=== PATIENT | male | born 1950 | race Caucasian/White ===

== ENCOUNTER → 2017-03-17 09:28 | Outpatient (CLI) | payer BC ==
[2015-08-25 09:21] VITALS: BMI 32.5
--- NOTE | ~2017-03-17 | EC ---
PATIENT:EYAL LOGAN DATE OF SERVICE: 03/17/17 SEX: M MEDICAL RECORD: [id number] DATE OF : 54 LOCATION[facility] AGE OF PATIENT: 66 ADMISSION DATE: 03/17/17 REFERRING PHYSICIAN: INTERPRETING PHYSICIAN: ARTIS ROMEO MD ECHOCARDIOGRAM REPORT ECHO CHARGES 4 ECHO COMPLETE CLINICAL DIAGNOSIS: EDEMA ECHOCARDIOGRAPHIC MEASUREMENTS (adult normal given) AC root (d.<3.7cm) 3.6 cm LV Septum d (<1.2 cm> 1.2 cm Valve Excursion 2.3 cm LV Septum (systole) 2.1 cm Left Atria (s.<4.0cm> 3.3 cm LVPW d(<1.2cm) 1.4 cm RV (d.<2.3cm) 3.6 cm LVPW (sytole) 2.2 cm LV diastole(<5.6CM) 5.5 cm MV E-F(>70mm/sec) cm LV systole 2.4 cm LVOT Diameter 1.9 cm MV exc.(>10mm) cm Est.ejection fraction (50-75%) % Pericardial Effusion N DOPPLER: LVIT cm/sec A 90.0 cm/sec E 71.0 cm/sec LA cm/sec RVSP 33.0 mmHg LVOT 119 cm/sec AOP1/2T m/s Asc. Ao 141 cm/sec RVOT 90.0 cm/sec RA cm/sec PA 107 cm/sec AV Gradient Peak 8.0 mmHg AV Mean 5.2 mmHg AV Area 2.1 cm MV Gradient Peak 2.8 mmHg MV Mean 1.2 mmHg MV Area cm COMMENTS: Electrical Systems Engineer: 1 NIDA BESSOE Slip Dumper: 1 Dr. Romeo TAPE# PACS DATE OF SERVICE: 03/17/2017 Echocardiogram FINDINGS: 1. Left ventricular chamber size is within normal limits. Left ventricular systolic function is mildly depressed. Overall ejection fraction 40%. 2. Left atrium, right atrium, and right ventricular chamber sizes are within normal limits. 3. Valvular structures have normal structure and motion. ECHOCARDIOGRAM REPORT [id number] EYAL LOGAN 4. Doppler interrogation reveals no significant valvular insufficiency or stenosis. Pulmonary systolic pressure is normal estimated at 33 mmHg. 5. No evidence of pericardial effusion or left ventricular thrombus. TRANSINT:[id number] Voice Confirmation ID: [id number] DOCUMENT ID: [id number] ARTIS ROMEO MD at 1800 CC: [id number] DICTATION DATE: 03/17/17 1446 STONEMASON HELPER: 03/17/17 1508 REG [facility] [address] [id number]
--- NOTE | ~2017-03-17 | HP ---
PATIENT: EYAL JOHNS MEDICAL RECORD: [id number] ACCOUNT: [id number] LOCATION:[facility] : 54 ADMISSION DATE: 03/17/17 HISTORY AND PHYSICAL EXAMINATION HISTORY OF PRESENT ILLNESS: Mr. Johns is a 66-year-old white male that was actually seen in the office yesterday for sudden hearing loss. He has also had some recent falls and increased swelling. He has a history of excessive alcohol use, chronic pancreatitis, and cirrhosis. An MRI was ordered and done today, results are still pending. Upon reviewing this evening, his sodium is found to be 125. He reports still feeling about the same, not feeling well. His hearing has not changed. He is going to be admitted for severe hyponatremia. PAST MEDICAL HISTORY: Significant for obesity, hypertension, intermittent atrial fibrillation, chronic pancreatitis, alcohol dependence with probable cirrhosis, gout, and hypertension. PAST SURGICAL HISTORY: Previous surgeries include a fracture of the left wrist. ALLERGIES OR INTOLERANCES: None. HOME MEDICATIONS: Include lisinopril 40 mg a day, potassium 20 mEq b.i.d., metoprolol 100 mg daily, allopurinol 300 mg a day, and Lasix 20 mg a day. FAMILY HISTORY: Significant for hypertension and type 2 diabetes. SOCIAL HISTORY: The patient has never been a smoker. He has been a drinker and been pretty heavy. REVIEW OF SYSTEMS: Significant for bilateral hearing loss, which started earlier in the week. He denies any headache. He denies any visual changes. He denies any chest pain, shortness of breath, palpitations. He has had some chronic swelling in his abdomen and lower extremities, which is now worse. He has had multiple falls in the last week. PHYSICAL EXAMINATION: GENERAL: He is in no distress at this time, but does appear mildly ill. HEENT: Sclerae nonicteric. Mucous membranes are moist. NECK: Soft and supple. HEART: Regular at this time. LUNGS: Clear. ABDOMEN: Slightly distended. EXTREMITIES: Lower extremities reveal edema. IMPRESSION: 1. Severe hyponatremia. 2. Sudden bilateral hearing loss. 3. Recent falls. 4. History of alcohol abuse with probable chronic cirrhosis and pancreatitis. PLAN: Admit. Fluid restriction. IV Lasix. Check labs. IV diuretics. Check echo. Follow up on MRI report that was done as an outpatient earlier today. Check ammonia level. See orders for rest of plan. TRANSINT:[id number] Voice Confirmation ID: [id number] DOCUMENT ID: [id number] HISTORY AND PHYSICAL [id number] EYAL JOHNS MATTHEW DO CC: [id number] DICTATION DATE: 03/17/171953 PROJECT BUILDER: 03/17/172045 REG [facility] [address] [id number]
[~2017-03-17 09:28] MED LIST: CARDIZEM CD240 MG PO; FUROSEMIDE20 MG PO; K-DUR20 MEQ PO; NAPROSYN500 MG PO; TOPROL XL100 MG PO; TOPROL XL50 MG PO; XARELTO20 MG PO; ZESTRIL40 MG PO; ZYLOPRIM300 MG PO
== END | disposition home or self-care (01) ==
LOC: D.ECHO 09:28
DX: H91.23 Sudden idiopathic hearing loss, bilateral (principal)

== ENCOUNTER 2017-03-17 21:10 | Inpatient (IN) | payer BC ==
[~2017-03-17] VITALS: Ht 175.3 cm; Wt 113.4 kg
--- NOTE | ~2017-03-17 | EC ---
PATIENT:EYAL LOGAN DATE OF SERVICE: 03/17/17 SEX: M MEDICAL RECORD: [id number] DATE OF : [birth year] LOCATION:D.MS Shanks[facility] AGE OF PATIENT: 66 ADMISSION DATE: 03/17/17 REFERRING PHYSICIAN: INTERPRETING PHYSICIAN: ARTIS ROMEO MD ECHOCARDIOGRAM REPORT ECHO CHARGES 4 ECHO COMPLETE CLINICAL DIAGNOSIS: EDEMA ECHOCARDIOGRAPHIC MEASUREMENTS (adult normal given) AC root (d.<3.7cm) 3.6 cm LV Septum d (<1.2 cm> 1.2 cm Valve Excursion 2.3 cm LV Septum (systole) 2.1 cm Left Atria (s.<4.0cm> 3.3 cm LVPW d(<1.2cm) 1.4 cm RV (d.<2.3cm) 3.6 cm LVPW (sytole) 2.2 cm LV diastole(<5.6CM) 5.5 cm MV E-F(>70mm/sec) cm LV systole 2.4 cm LVOT Diameter 1.9 cm MV exc.(>10mm) cm Est.ejection fraction (50-75%) % Pericardial Effusion N DOPPLER: LVIT cm/sec A 90.0 cm/sec E 71.0 cm/sec LA cm/sec RVSP 33.0 mmHg LVOT 119 cm/sec AOP1/2T m/s Asc. Ao 141 cm/sec RVOT 90.0 cm/sec RA cm/sec PA 107 cm/sec AV Gradient Peak 8.0 mmHg AV Mean 5.2 mmHg AV Area 2.1 cm MV Gradient Peak 2.8 mmHg MV Mean 1.2 mmHg MV Area cm COMMENTS: Lay Out Former: 1 NIDA BESSOE Drill Runner Helper: 1 Dr. Romeo TAPE# PACS DATE OF SERVICE: 03/17/2017 Echocardiogram FINDINGS: 1. Left ventricular chamber size is within normal limits. Left ventricular systolic function is mildly depressed. Overall ejection fraction 40%. 2. Left atrium, right atrium, and right ventricular chamber sizes are within normal limits. 3. Valvular structures have normal structure and motion. ECHOCARDIOGRAM REPORT [id number] EYAL LOGAN 4. Doppler interrogation reveals no significant valvular insufficiency or stenosis. Pulmonary systolic pressure is normal estimated at 33 mmHg. 5. No evidence of pericardial effusion or left ventricular thrombus. TRANSINT:[id number] Voice Confirmation ID: [id number] DOCUMENT ID: [id number] ARTIS ROMEO MD CC: [id number] DICTATION DATE: 03/17/17 1446 VOLTAGE INSPECTOR: 03/17/17 1508 DIS IN 03/21/17 [id number] [place] [id number]
[~2017-03-17 21:10] MED LIST changes: -FUROSEMIDE20 MG PO; -NAPROSYN500 MG PO; -TOPROL XL100 MG PO; -ZESTRIL40 MG PO
[2017-03-17 22:30] LABS: BASOPHILS 0.1 % (0-2); EOSINOPHILS 0.9 % (0-7); HEMATOCRIT 29.8 % (42.0-54.0); HEMOGLOBIN 10.3 g/dL (13.5-17.5); IMMATURE GRANULOCYTES 0.7 % (0-5); LYMPHOCYTES 14.5 % (15-50); MCH 34.9 pg (26.0-34.0); MCHC 34.6 g/dL (31.0-37.0); MEAN PLATELET VOLUME 9.5 fL (7.4-10.4); NEUTROPHILS 72.8 % (40-80); PLATELET COUNT 125 10x3/uL (130-400); RBC 2.95 10x6/uL (4.20-6.10); RDW 13.2 % (11.5-14.5); WBC 6.8 10x3/uL (4.8-10.8)
[2017-03-17] MEDS ORDERED: TOPROL XL100 MG PO (22:42)
[2017-03-17] MEDS ORDERED: FUROSEMIDE20 MG PO (22:43)
[2017-03-17] MEDS ORDERED: ZESTRIL40 MG PO (22:44)
[2017-03-17] MEDS ORDERED: NAPROSYN500 MG PO (22:45)
[2017-03-17 22:57] LABS: INR 0.95 (0.85-1.17); PROTIME 12.3 SECONDS (11.6-15.0)
[2017-03-17 23:04] LABS: ALBUMIN 3.4 g/dL (3.4-5.0); ALKALINE PHOSPHATASE 117 U/L (46-116); ALT (SGPT) 24 U/L (10-68); BILIRUBIN - TOTAL 0.74 mg/dL (0.2-1.3); CALC OSMOLALITY 248 mosm/kg (275-300); CARBON DIOXIDE 22.4 mmol/L (21.0-32.0); CHLORIDE - SERUM 87 mmol/L (98-107); CKMB 3.5 U/L (0.0-3.6); CREATINE KINASE 559 UL (21-232); CREATININE - SERUM 1.4 mg/dL (0.6-1.3); GLUCOSE 95 mg/dL (74-106); MAGNESIUM - SERUM 1.6 mg/dL (1.8-2.4); PHOSPHOROUS 2.6 mg/dL (2.5-4.9); POTASSIUM - SERUM 3.5 mmol/L (3.5-5.1); PROTEIN - SERUM 7.7 g/dL (6.4-8.2); SODIUM 123 mmol/L (136-145); THYROID STIMULATING HORMONE 37.94 uIU/mL (0.36-3.74); UREA NITROGEN 14 mg/dL (7-18); URIC ACID 3.3 mg/dL (2.6-7.2); eGFR NON AFRICAN AMERICAN 54 mL/min (90-120)
[2017-03-17 23:12] LABS: TROPONIN-I < 0.017 ng/mL (0.000-0.060)
[2017-03-17 23:50] LABS: APPEARANCE CLEAR (CLEAR); BILIRUBIN NEGATIVE (NEGATIVE); COLOR YELLOW (YELLOW); GLUCOSE NEGATIVE (NEGATIVE); KETONE NEGATIVE (NEGATIVE); NITRITE NEGATIVE (NEGATIVE); PROTEIN NEGATIVE (NEGATIVE); UROBILINOGEN NORMAL (NORMAL)
[2017-03-18] VITALS (7 sets, daily range): BP systolic 107–132; BP diastolic 69–89; Ht 175.3 cm; Wt 113.4 kg
[2017-03-18 04:50] LABS: ANION GAP 16.1 mmol/L (8-16); CALCIUM 9.5 mg/dL (8.5-10.1); CARBON DIOXIDE 26.7 mmol/L (21.0-32.0); CREATININE - SERUM 1.5 mg/dL (0.6-1.3); POTASSIUM - SERUM 3.8 mmol/L (3.5-5.1)
[2017-03-18 11:04] LABS: BASOPHILS 0.1 % (0-2); EOSINOPHILS 0.6 % (0-7); HEMATOCRIT 32.1 % (42.0-54.0); IMMATURE GRANULOCYTES 0.9 % (0-5); LYMPHOCYTES 14.4 % (15-50); MCH 35.5 pg (26.0-34.0); MCHC 34.3 g/dL (31.0-37.0); MONOCYTES 8.8 % (2-11); NEUTROPHILS 75.2 % (40-80); RDW 13.4 % (11.5-14.5); WBC 6.8 10x3/uL (4.8-10.8)
[2017-03-18 11:05] LABS: MCV 103.5 fL (80.0-100.0); PLATELET COUNT 165 10x3/uL (130-400)
[2017-03-19 04:00] VITALS: BP 154/87
[2017-03-19 04:29] LABS: BASOPHILS 0 % (0-2); EOSINOPHILS 1.3 % (0-7); HEMOGLOBIN 9.7 g/dL (13.5-17.5); IMMATURE GRANULOCYTES 1.3 % (0-5); LYMPHOCYTES 14.2 % (15-50); MCH 34.9 pg (26.0-34.0); MCHC 33.4 g/dL (31.0-37.0); MCV 104.3 fL (80.0-100.0); MEAN PLATELET VOLUME 9.1 fL (7.4-10.4); MONOCYTES 12.7 % (2-11); NEUTROPHILS 70.5 % (40-80); RBC 2.78 10x6/uL (4.20-6.10); RDW 13.5 % (11.5-14.5); WBC 5.2 10x3/uL (4.8-10.8)
[2017-03-19 04:36] LABS: PLATELET COUNT 124 10x3/uL (130-400)
[2017-03-19 04:48] LABS: ALBUMIN 3.4 g/dL (3.4-5.0); ANION GAP 12.1 mmol/L (8-16); BILIRUBIN - TOTAL 0.6 mg/dL (0.2-1.3); CALCIUM 8.6 mg/dL (8.5-10.1); CARBON DIOXIDE 27.5 mmol/L (21.0-32.0); POTASSIUM - SERUM 3.6 mmol/L (3.5-5.1); PROTEIN - SERUM 7.3 g/dL (6.4-8.2)
[2017-03-19 04:53] LABS: CREATININE - SERUM 1.9 mg/dL (0.6-1.3)
[2017-03-19 08:04] VITALS: BP 107/67
[2017-03-19 11:58] VITALS: BP 109/58
[2017-03-19 16:24] VITALS: BP 136/76
[2017-03-19 20:00] VITALS: BP 125/83; BP 131/68
[2017-03-20 04:00] VITALS: BP 154/98
[2017-03-20 05:15] LABS: BASOPHILS 0.5 % (0-2); EOSINOPHILS 2.1 % (0-7); HEMOGLOBIN 9.1 g/dL (13.5-17.5); IMMATURE GRANULOCYTES 3.1 % (0-5); LYMPHOCYTES 18.7 % (15-50); MCH 34.6 pg (26.0-34.0); MCHC 32.5 g/dL (31.0-37.0); MEAN PLATELET VOLUME 9.1 fL (7.4-10.4); MONOCYTES 13.5 % (2-11); NEUTROPHILS 62.1 % (40-80); PLATELET COUNT 138 10x3/uL (130-400); RBC 2.63 10x6/uL (4.20-6.10); RDW 13.7 % (11.5-14.5); WBC 3.9 10x3/uL (4.8-10.8)
[2017-03-20 05:28] LABS: MCV 106.5 fL (80.0-100.0)
[2017-03-20 05:33] LABS: ALBUMIN 3.3 g/dL (3.4-5.0); ANION GAP 11.5 mmol/L (8-16); BILIRUBIN - TOTAL 0.5 mg/dL (0.2-1.3); CALCIUM 7.9 mg/dL (8.5-10.1); CARBON DIOXIDE 29.1 mmol/L (21.0-32.0); CREATININE - SERUM 1.6 mg/dL (0.6-1.3); POTASSIUM - SERUM 3.6 mmol/L (3.5-5.1); PROTEIN - SERUM 7.2 g/dL (6.4-8.2)
[2017-03-20 09:41] VITALS: BP 137/78
[2017-03-20 11:48] VITALS: BP 162/95
[2017-03-20 15:53] VITALS: BP 174/101
[2017-03-20 20:00] VITALS: BP 146/86
[2017-03-21 04:00] VITALS: BP 133/84
[2017-03-21 05:16] LABS: BASOPHILS 0.2 % (0-2); EOSINOPHILS 0 % (0-7); HEMATOCRIT 28.7 % (42.0-54.0); HEMOGLOBIN 9.3 g/dL (13.5-17.5); IMMATURE GRANULOCYTES 4.1 % (0-5); LYMPHOCYTES 7.1 % (15-50); MCH 34.7 pg (26.0-34.0); MCHC 32.4 g/dL (31.0-37.0); MCV 107.1 fL (80.0-100.0); MEAN PLATELET VOLUME 9.1 fL (7.4-10.4); NEUTROPHILS 83.6 % (40-80); RBC 2.68 10x6/uL (4.20-6.10)
[2017-03-21 05:39] LABS: ALBUMIN 3.3 g/dL (3.4-5.0); ANION GAP 13.7 mmol/L (8-16); BILIRUBIN - TOTAL 0.5 mg/dL (0.2-1.3); CALCIUM 8.3 mg/dL (8.5-10.1); CARBON DIOXIDE 26.3 mmol/L (21.0-32.0); CREATININE - SERUM 1.5 mg/dL (0.6-1.3); PROTEIN - SERUM 7.7 g/dL (6.4-8.2)
[2017-03-21 05:44] LABS: PLATELET COUNT 188 10x3/uL (130-400); WBC 5.4 10x3/uL (4.8-10.8)
[2017-03-21 08:56] VITALS: BP 151/92
[2017-03-21 12:46] VITALS: BP 135/79
[2017-03-21 16:12] VITALS: BP 134/90
[2017-03-21] MEDS ORDERED: PREDNISONE20 MG PO (16:25)
== END 2017-03-21 18:19 | disposition home or self-care (01) | DRG 640 ==
LOC: D.MS 21:10
PROVIDERS: Family Medicine
DX: E87.1 Hypo-osmolality and hyponatremia (principal); G93.41 Metabolic encephalopathy; N17.9 Acute kidney failure, unspecified; F17.203 Nicotine dependence unspecified, with withdrawal; F10.20 Alcohol dependence, uncomplicated; I12.9 Hypertensive chronic kidney disease with stage 1 through stage 4 chronic kidney disease, or unspecified chronic kidney disease; N18.9 Chronic kidney disease, unspecified; R26.89 Other abnormalities of gait and mobility; D53.9 Nutritional anemia, unspecified; H91.8X9 Other specified hearing loss, unspecified ear

== ENCOUNTER 2017-06-20 22:35 | Inpatient (IN) | payer MEDICARE, BC ==
[~2017-06-20] VITALS: Ht 175.3 cm; Wt 107.5 kg
--- NOTE | ~2017-06-20 | HP ---
PATIENT: EYAL JOHNS MEDICAL RECORD: [id number] ACCOUNT: [id number] LOCATION:[facility] D.2139 : 54 ADMISSION DATE: 06/20/17 HISTORY AND PHYSICAL EXAMINATION HISTORY OF PRESENT ILLNESS: Mr. Johns is a 67-year-old white male that is in today for followup with worsening renal failure. He has a history of alcoholism and has been drinking daily most recently. He has had troubles with hyponatremia and had to be hospitalized on several occasions for that. He has had some recent nausea, vomiting, and diarrhea and has been able to keep much down. He had a little bump in his creatinine a week or so ago. His baseline runs about 1.5, creatinine was checked on Monday and it was around 4, but there was some other abnormals and we were not for sure if this was really a true result or not. Creatinine was repeated yesterday and comes back today at 5.1. I think, he has liver issues plus worsening renal failure. He is going to be admitted for IV fluids and nephrology consult. We will hold any nephrotoxic meds at this time. He has been on some pretty good doses of diuretics due to chronic edema which is probably related to his liver. He was scheduled for an echo this Monday. We will make sure and get that done while in the hospital. PAST MEDICAL HISTORY: Significant for hyperlipidemia, chronic pancreatitis, chronic hyponatremia, gout, edema, atrial fibrillation, hypertension, and alcohol dependency. PAST SURGICAL HISTORY: He had a left wrist fracture that required surgical intervention in 2012. ALLERGIES: None known. HOME MEDICATIONS: Include allopurinol 300 mg a day; Lasix 20 mg 2 a day, which has been on hold since over the weekend; DuoNeb updrafts; lisinopril 40 mg a day, which have been on hold; metoprolol ER 100 mg daily; potassium 20 mEq once a day. FAMILY HISTORY: Noncontributory. SOCIAL HISTORY: The patient has worked for years at one of the local [employer] places and works in the shop. He does not smoke. He drinks vodka on a pretty much a daily basis. He does state he has not drank since Monday. He is , but he and his do not live together. His children have been staying with him and help providing care. REVIEW OF SYSTEMS: He complains of increasing weakness. He had a sudden hearing loss here 3-4 months ago and saw ENT and also saw neurology. He denies any chest pain. He is short of breath with minimal exertion. He usually has edema, but his edema is better. He also notes decreased urine output the last several days. He complains of pain in his back and joints. PHYSICAL EXAMINATION: GENERAL: He is chronically ill in appearance, in no extremis at this time. He looks obese. His edema is actually pretty good. HEENT: Sclerae nonicteric. Mucous membranes are little moist. HEART: Regular rate at this time. LUNGS: Relatively clear. ABDOMEN: Distended. HISTORY AND PHYSICAL [id number] EYAL JOHNS LOWER EXTREMITIES: Minimal edema. NEUROLOGIC: Without any gross focal deficits. Gait is slow, he uses a walker. IMPRESSION: 1. Egfih-rb-rugxhcc renal failure. 2. Chronic pancreatitis. 3. Suspect cirrhosis. 4. Alcohol abuse. 5. Hypertension. 6. Chronic atrial fibrillation. PLAN: Admit, hold any nephrotoxic meds at this time. Renal consult. Get a renal ultrasound in a.m. Check an echo. Check labs. DVT prophylaxis. See orders for plan. TRANSINT:[id number] Voice Confirmation ID: [id number] DOCUMENT ID: [id number] JUAN LUIS FLYNN DO at 1354 CC: [id number] DICTATION DATE: 06/20/171815 ELEVATOR CONSTRUCTOR: 06/20/17 1849 ADM IN [place] [id number] [place] [address]
--- NOTE | ~2017-06-20 | EC ---
PATIENT:EYAL LOGAN DATE OF SERVICE: 06/20/17 SEX: M MEDICAL RECORD: [id number] DATE OF : 54 LOCATION:D.M2 D.213 AGE OF PATIENT: 67 ADMISSION DATE: 06/20/17 REFERRING PHYSICIAN: INTERPRETING PHYSICIAN: ARTIS ROMEO MD ECHOCARDIOGRAM REPORT ECHO CHARGES 4 ECHO COMPLETE Date: 06/21 CLINICAL DIAGNOSIS: RENAL FAILURE/CIRROSIS/ ETOH ABUSE ECHOCARDIOGRAPHIC MEASUREMENTS (adult normal given) AC root (d.<3.7cm) 3.6 cm LV Septum d (<1.2 cm> 1.7 cm Valve Excursion 1.7 cm LV Septum (systole) 2.3 cm Left Atria (s.<4.0cm> 3.3 cm LVPW d(<1.2cm) 1.6 cm RV (d.<2.3cm) 3.3 cm LVPW (sytole) 2.6 cm LV diastole(<5.6CM) 4.2 cm MV E-F(>70mm/sec) cm LV systole 1.5 cm LVOT Diameter 2.1 cm MV exc.(>10mm) cm Est.ejection fraction (50-75%) % DOPPLER: LVIT cm/sec A 56.0 cm/sec E 79.0 cm/sec LA cm/sec RVSP 28.3 mmHg LVOT 107 cm/sec AOP1/2T m/s Asc. Ao 135 cm/sec RVOT 89.0 cm/sec RA cm/sec PA 85.0 cm/sec AV Gradient Peak 7.3 mmHg AV Mean 3.3 mmHg AV Area 2.9 cm MV Gradient Peak 2.6 mmHg MV Mean 0.93 mmHg MV Area cm COMMENTS: Animal Trainer Supervisor: Florentino BESSOE Pound Attendant: 1 Dr. Romeo TAPE# PACS Pericardial Effusion N DATE OF SERVICE: 06/21/2017 PROCEDURE: Echocardiogram. FINDINGS: 1. Left ventricular chamber size is within normal limits. Left ventricular systolic function is normal. Overall ejection fraction estimated at 55%. 2. Left atrium, right atrium, and right ventricle chamber sizes are within normal limits. 3. Valvular structures have normal structure and motion. ECHOCARDIOGRAM REPORT [id number] EYAL LOGAN 4. Doppler interrogation reveals no significant valvular insufficiency or stenosis and pulmonary systolic pressure is normal, estimated 28 mmHg. 5. No evidence of pericardial effusion or left ventricular thrombus. TRANSINT:[id number] Voice Confirmation ID: [id number] DOCUMENT ID: [id number] ARTIS ROMEO MD at 1444 CC: [id number] DICTATION DATE: 06/21/17 1552 ASSOCIATE DIRECTOR OF DEVELOPMENT: 06/21/17 1653 ADM IN [facility] [address] [id number]
[~2017-06-20 22:35] MED LIST changes: +FUROSEMIDE20 MG PO; +NAPROSYN500 MG PO; +PREDNISONE20 MG PO; +TOPROL XL100 MG PO; +ZESTRIL40 MG PO
[2017-06-20] MEDS ORDERED: FUROSEMIDE20 MG PO (22:46)
[2017-06-20] MEDS ORDERED: K-DUR20 MEQ PO (22:46)
[2017-06-21] VITALS (7 sets, daily range): BP systolic 98–140; BP diastolic 60–78; Ht 175.3 cm; Wt 107.5 kg
[2017-06-21 05:58] LABS: BASOPHILS 0.5 % (0-2); EOSINOPHILS 3.4 % (0-7); HEMATOCRIT 35.6 % (42.0-54.0); HEMOGLOBIN 12.2 g/dL (13.5-17.5); IMMATURE GRANULOCYTES 0.3 % (0-5); LYMPHOCYTES 27.4 % (15-50); MCH 39.1 pg (26.0-34.0); MCHC 34.3 g/dL (31.0-37.0); MCV 114.1 fL (80.0-100.0); MEAN PLATELET VOLUME 10.5 fL (7.4-10.4); MONOCYTES 9.2 % (2-11); NEUTROPHILS 59.2 % (40-80); RBC 3.12 10x6/uL (4.20-6.10); RDW 14.6 % (11.5-14.5); WBC 3.8 10x3/uL (4.8-10.8)
[2017-06-21 06:04] LABS: PLATELET COUNT 107 10x3/uL (130-400)
[2017-06-21 06:08] LABS: INR 0.99 (0.85-1.17); PROTIME 12.7 SECONDS (11.6-15.0)
[2017-06-21 06:30] LABS: ALBUMIN 4.4 g/dL (3.4-5.0); ANION GAP 20.2 mmol/L (8-16); BILIRUBIN - TOTAL 1.07 mg/dL (0.2-1.3); CALCIUM 10.1 mg/dL (8.5-10.1); CARBON DIOXIDE 22.8 mmol/L (21.0-32.0); CREATININE - SERUM 4.1 mg/dL (0.6-1.3); MAGNESIUM - SERUM 2.2 mg/dL (1.8-2.4); PHOSPHOROUS 3.2 mg/dL (2.5-4.9); PROTEIN - SERUM 8.2 g/dL (6.4-8.2)
[2017-06-21 07:07] LABS: ERYTHROCYTE SEDIMENTATION RATE 21 mm/hr (0-20)
[2017-06-21 16:50] LABS: AMYLASE - SERUM 57 U/L (25-115); LIPASE 646 U/L (73-393)
[2017-06-22] VITALS: BP 54/37
[2017-06-22 04:00] VITALS: BP 90/68
[2017-06-22 06:22] LABS: ALBUMIN 4.2 g/dL (3.4-5.0); ANION GAP 19.7 mmol/L (8-16); BILIRUBIN - TOTAL 0.73 mg/dL (0.2-1.3); CALCIUM 9.3 mg/dL (8.5-10.1); CARBON DIOXIDE 23.4 mmol/L (21.0-32.0); CREATININE - SERUM 4.9 mg/dL (0.6-1.3); MAGNESIUM - SERUM 1.9 mg/dL (1.8-2.4); PHOSPHOROUS 3.7 mg/dL (2.5-4.9); POTASSIUM - SERUM 5.1 mmol/L (3.5-5.1); PROTEIN - SERUM 7.4 g/dL (6.4-8.2)
[2017-06-22 06:26] LABS: BASOPHILS 0.6 % (0-2); EOSINOPHILS 4.3 % (0-7); HEMATOCRIT 30.3 % (42.0-54.0); HEMOGLOBIN 10.4 g/dL (13.5-17.5); IMMATURE GRANULOCYTES 0.3 % (0-5); LYMPHOCYTES 30.2 % (15-50); MCH 39.4 pg (26.0-34.0); MCHC 34.3 g/dL (31.0-37.0); MCV 114.8 fL (80.0-100.0); MEAN PLATELET VOLUME 10.7 fL (7.4-10.4); MONOCYTES 11.9 % (2-11); NEUTROPHILS 52.7 % (40-80); PLATELET COUNT 102 10x3/uL (130-400); RBC 2.64 10x6/uL (4.20-6.10); RDW 14.6 % (11.5-14.5); WBC 3.3 10x3/uL (4.8-10.8)
[2017-06-22 08:05] VITALS: BP 124/62
[2017-06-22 09:05] LABS: APPEARANCE CLEAR (CLEAR); BACTERIA FEW /hpf (NONE SEEN); BILIRUBIN NEGATIVE (NEGATIVE); COLOR YELLOW (YELLOW); EPITHELIAL CELLS 0-5 /hpf (0-5); GLUCOSE NEGATIVE (NEGATIVE); KETONE NEGATIVE (NEGATIVE); NITRITE NEGATIVE (NEGATIVE); PROTEIN NEGATIVE (NEGATIVE); SPECIFIC GRAVITY 1.015 (1.005-1.020); UROBILINOGEN NORMAL (NORMAL); WHITE CELLS - URINE 0-5 /hpf (0-5)
[2017-06-22 11:49] VITALS: BP 116/77
[2017-06-22 12:16] LABS: ANA REFLEX - DIRECT Negative (Negative)
[2017-06-22 16:05] VITALS: BP 120/74
[2017-06-22 21:16] VITALS: BP 96/71
[2017-06-23 01:25] VITALS: BP 120/80
[2017-06-23 04:56] VITALS: BP 127/80
[2017-06-23 07:00] LABS: BASOPHILS 0.6 % (0-2); EOSINOPHILS 4.6 % (0-7); HEMATOCRIT 30.7 % (42.0-54.0); HEMOGLOBIN 10.5 g/dL (13.5-17.5); IMMATURE GRANULOCYTES 0.3 % (0-5); LYMPHOCYTES 26.4 % (15-50); MCH 39.3 pg (26.0-34.0); MCHC 34.2 g/dL (31.0-37.0); MEAN PLATELET VOLUME 10.3 fL (7.4-10.4); MONOCYTES 10.7 % (2-11); NEUTROPHILS 57.4 % (40-80); PLATELET COUNT 107 10x3/uL (130-400); RBC 2.67 10x6/uL (4.20-6.10); RDW 14.5 % (11.5-14.5); WBC 3.5 10x3/uL (4.8-10.8)
[2017-06-23 07:17] LABS: ALBUMIN 4.7 g/dL (3.4-5.0); BILIRUBIN - TOTAL 0.8 mg/dL (0.2-1.3); CALCIUM 9.1 mg/dL (8.5-10.1); CARBON DIOXIDE 24.3 mmol/L (21.0-32.0); CREATININE - SERUM 3.9 mg/dL (0.6-1.3); MAGNESIUM - SERUM 1.9 mg/dL (1.8-2.4); PHOSPHOROUS 3.5 mg/dL (2.5-4.9); POTASSIUM - SERUM 4.3 mmol/L (3.5-5.1); PROTEIN - SERUM 7.9 g/dL (6.4-8.2)
[2017-06-23 07:41] VITALS: BP 115/73
[2017-06-23 11:21] VITALS: BP 116/62
[2017-06-23 15:25] LABS: ANCA - ANTIMYELOPEROXIDASE <9.0 U/mL (0.0-9.0); ANCA - ANTIPROTEINASE 3 <3.5 U/mL (0.0-3.5); ANCA - ATYPICAL <1:20 titer (Neg:<1:20); ANCA - CYTOPLASMIC <1:20 titer (Neg:<1:20); ANCA - PERINUCLEAR <1:20 titer (Neg:<1:20)
[2017-06-23 16:13] VITALS: BP 129/79
[2017-06-23 21:10] VITALS: BP 115/65
[2017-06-24 01:12] VITALS: BP 152/86
[2017-06-24 05:40] VITALS: BP 130/100
[2017-06-24 06:47] LABS: BASOPHILS 1.7 % (0-2); EOSINOPHILS 4.5 % (0-7); HEMOGLOBIN 10.8 g/dL (13.5-17.5); IMMATURE GRANULOCYTES 0.5 % (0-5); LYMPHOCYTES 28.8 % (15-50); MCH 39.1 pg (26.0-34.0); MCHC 33.8 g/dL (31.0-37.0); MCV 115.9 fL (80.0-100.0); MEAN PLATELET VOLUME 10.1 fL (7.4-10.4); MONOCYTES 13.4 % (2-11); NEUTROPHILS 51.1 % (40-80); PLATELET COUNT 130 10x3/uL (130-400); RBC 2.76 10x6/uL (4.20-6.10); RDW 14.8 % (11.5-14.5); WBC 4.2 10x3/uL (4.8-10.8)
[2017-06-24 07:28] LABS: ALBUMIN 4.8 g/dL (3.4-5.0); ANION GAP 19.5 mmol/L (8-16); BILIRUBIN - TOTAL 0.72 mg/dL (0.2-1.3); CALCIUM 8.8 mg/dL (8.5-10.1); CARBON DIOXIDE 21.6 mmol/L (21.0-32.0); MAGNESIUM - SERUM 1.8 mg/dL (1.8-2.4); PHOSPHOROUS 3.2 mg/dL (2.5-4.9); POTASSIUM - SERUM 4.1 mmol/L (3.5-5.1); PROTEIN - SERUM 7.7 g/dL (6.4-8.2)
[2017-06-24 07:29] LABS: CREATININE - SERUM 2.7 mg/dL (0.6-1.3)
[2017-06-24 07:39] VITALS: BP 126/84
[2017-06-24 11:14] VITALS: BP 138/72
[2017-06-24 14:41] VITALS: BP 130/86
[2017-06-24 20:00] VITALS: BP 97/70
[2017-06-25] VITALS: BP 149/95
[2017-06-25 04:00] VITALS: BP 143/74
[2017-06-25 07:20] LABS: BASOPHILS 0.6 % (0-2); EOSINOPHILS 3.8 % (0-7); HEMATOCRIT 30.4 % (42.0-54.0); HEMOGLOBIN 10.4 g/dL (13.5-17.5); IMMATURE GRANULOCYTES 0.3 % (0-5); LYMPHOCYTES 27.9 % (15-50); MCH 39.1 pg (26.0-34.0); MCHC 34.2 g/dL (31.0-37.0); MCV 114.3 fL (80.0-100.0); MEAN PLATELET VOLUME 9.6 fL (7.4-10.4); NEUTROPHILS 52.4 % (40-80); PLATELET COUNT 110 10x3/uL (130-400); RBC 2.66 10x6/uL (4.20-6.10); RDW 14.5 % (11.5-14.5); WBC 3.2 10x3/uL (4.8-10.8)
[2017-06-25 07:44] LABS: ALBUMIN 4.3 g/dL (3.4-5.0); ANION GAP 16.1 mmol/L (8-16); BILIRUBIN - TOTAL 0.63 mg/dL (0.2-1.3); CALCIUM 8.9 mg/dL (8.5-10.1); CARBON DIOXIDE 23.8 mmol/L (21.0-32.0); MAGNESIUM - SERUM 1.9 mg/dL (1.8-2.4); POTASSIUM - SERUM 3.9 mmol/L (3.5-5.1); PROTEIN - SERUM 7.5 g/dL (6.4-8.2)
[2017-06-25 08:25] VITALS: BP 133/83
[2017-06-25 12:21] VITALS: BP 122/74
[2017-06-25 15:29] VITALS: BP 125/62
[2017-06-25 20:00] VITALS: BP 148/65
[2017-06-26] VITALS: BP 128/89
[2017-06-26 05:57] LABS: BASOPHILS 0.6 % (0-2); EOSINOPHILS 3.4 % (0-7); HEMATOCRIT 28.7 % (42.0-54.0); HEMOGLOBIN 9.8 g/dL (13.5-17.5); IMMATURE GRANULOCYTES 0.6 % (0-5); LYMPHOCYTES 25.5 % (15-50); MCH 38.6 pg (26.0-34.0); MCHC 34.1 g/dL (31.0-37.0); MEAN PLATELET VOLUME 9.8 fL (7.4-10.4); NEUTROPHILS 53.9 % (40-80); PLATELET COUNT 117 10x3/uL (130-400); RBC 2.54 10x6/uL (4.20-6.10); RDW 14.5 % (11.5-14.5); WBC 3.6 10x3/uL (4.8-10.8)
[2017-06-26 06:24] LABS: ALBUMIN 4.1 g/dL (3.4-5.0); ANION GAP 16.7 mmol/L (8-16); BILIRUBIN - TOTAL 0.57 mg/dL (0.2-1.3); CALCIUM 8.6 mg/dL (8.5-10.1); CARBON DIOXIDE 23.8 mmol/L (21.0-32.0); CREATININE - SERUM 1.8 mg/dL (0.6-1.3); MAGNESIUM - SERUM 1.8 mg/dL (1.8-2.4); PHOSPHOROUS 2.8 mg/dL (2.5-4.9); POTASSIUM - SERUM 3.5 mmol/L (3.5-5.1); PROTEIN - SERUM 7.2 g/dL (6.4-8.2)
[2017-06-26 08:02] VITALS: BP 132/74
[2017-06-26] MEDS ORDERED: NICODERM C1 PATCH .3 TRANSDERM (08:57)
== END 2017-06-26 14:18 | disposition home or self-care (01) | DRG 683 ==
LOC: D.M2 22:35
PROVIDERS: Emergency Medicine; Family Medicine
DX: N17.9 Acute kidney failure, unspecified (principal); K86.1 Other chronic pancreatitis; D61.818 Other pancytopenia; K74.60 Unspecified cirrhosis of liver; I12.9 Hypertensive chronic kidney disease with stage 1 through stage 4 chronic kidney disease, or unspecified chronic kidney disease; N18.3 Chronic kidney disease, stage 3 (moderate); E78.5 Hyperlipidemia, unspecified; F10.20 Alcohol dependence, uncomplicated; I48.2 Chronic atrial fibrillation

== ENCOUNTER 2017-12-10 14:22 | Inpatient (IN) | payer MEDICARE, BC ==
[~2017-12-10] VITALS: Ht 177.8 cm; Wt 110.9 kg
[2017-12-10] VITALS (13 sets, daily range): BP systolic 120–172; BP diastolic 60–100
--- NOTE | ~2017-12-10 | TEE ---
PATIENT:EYAL LOGAN MEDICAL RECORD: [id number] LOCATION:D.MS [facility] AGE OF PATIENT: 67 ADMISSION DATE: 12/10/17 SEX: M REFERRING PHYSICIAN: INTERPRETING PHYSICIAN: CHIQUITA CHAPIN MD TRANSESOPHAGEAL ECHOCARDIOGRAM Date: 12/21/17 RODERICK CHARGE Y INDICATIONS: SEPSIS, ASSESS FOR ENDOCARDITIS PREMEDICATIONS: PATIENT'S RESPONSE PROCEDURE DOPPLER MEASUREMENTS: LVIT LA PA 86 RA LVOT 92 RVOT 107 Asc. Ao 156 AV Gradient Peak 9.7 AV Mean 7.6 AV Area 2.2 MV Gradient Peak 5.6 MV Mean 2.5 MV Area INTERPRETATION: Doppler: 2-D: COLOR FLOW DOPPLER TRACE/MILD TR NORMAL SALINE STUDY: MISCELLANOUS: DIAGNOSIS: PLAN: Marine Machinist:3 Dr. Allison Field Agronomist: Nestor MUJICA COMMENTS: DATE OF SERVICE: 12/21/2017 TRANSESOPHAGEAL NOTE After general sedation via TIVA via anesthesia, transesophageal Omniplane probe was placed into distal esophagus and proximal stomach without difficulty. FINDINGS: LVH is present. LV internal dimensions are normal. Mild septal hypokinesis. Overall, function appears to be lower limits of normal at 50%. TRANSESOPHAGEAL ECHOCARDIOGRAM REPORT [id number] MARIUM LOGAN Aortic valve is tricuspid. Good valve excursion without evidence of vegetation. Left atrium appears of normal dimensions. Mitral valve has some redundancy and prolapse of the anterior leaflet, no more than mild MR. No evidence of vegetation. Right-sided chambers appear grossly normal. Tricuspid valve is well visualized. No evidence of vegetation. IMPRESSION: No evidence of vegetation in all 4 cardiac valves. TRANSINT:[id number] Voice Confirmation ID: [id number] DOCUMENT ID: [id number] at 1407 CC: [id number] DICTATION DATE: 12/21/17 1344 EXPERIENCE DESIGN DIRECTOR: 12/21/17 1724 ADM IN [id number] [place] [address]
--- NOTE | ~2017-12-10 | MORECARE ---
CASE MANAGEMENT DISCHARGE SUMMARY PATIENT: EYAL LOGAN UNIT: [id number] ADM DATE: 12/10/17 AGE: 67 : 54 SEX: M ROOM/BED: D.2235 AUTHOR: TERESA,DOC PHYSICIAN: REFERRING PHYSICIAN: JESSICA CHIU MD DATE OF SERVICE: 12/27/17 Discharge Plan Patient Name: EYAL LOGAN Facility: [facility]:[place] : 1950 Planned Disposition: Inpatient Rehab Anticipated Discharge Date: Discharge Date: 12/26/2017 Expected LOS: 0 Initial Reviewer: [email or web address] Initial Review Date: 12/18/2017 Generated: 12/27/17 12:10 pm Comments DCP- Discharge Planning Updated by [email or web address]: Cindy Arreola on 12/25/17 12:[address] I spoke with patient regarding discharge planning and rehab. I informed him he would need to participate in inpatient rehab for 3 hours total a day. He states he will participate in rehab. I informed him if he was unable to participate he may need to go to a skilled facility. He states he has been at [facility] before and would go there again if he is turned down by our rehab but he would prefer to stay here. OCTAVIA for [facility] signed. CM will continue to follow and assist with discharge planning/needs. DCP- Discharge Planning Updated by [email or web address]: Airam Walker on 12/22/17 3:[address] sherrill with rehab stated that they will watch him over the weekend to see how he progresses. CM will continue to assist with DC planning DCP- Discharge Planning Updated by [email or web address]: Cindy Arreola on 12/18/17 11:[address] Patient Name: EYAL LOGAN Admission Status: ER Accout number: [id number] Admission Date: 12-10-2017 : 1950 Admission Diagnosis:SEPSIS, UNSPECIFIED ORGANISM Attending: JESSICA CHIU Current LOS: 8 Anticipated DC Date: Planned Disposition: Inpatient Rehab Primary Insurance: MEDICARE A & B Discharge Planning Comments: CM met with patient to discuss discharge planning, he is alone in the room. He states he lives with his grand son (Perry), Perry's girl friend and 2 babies. He states that he ambulates with a walker and his daughter sets up his medications for him, otherwise he is independent. States he drives some, but not a lot any more. States he would like to go to inpatient rehab here at [facility] prior to discharge home. He does not use any HHS or have a DME preference at this time. CM will continue to follow and assist with discharge planning/needs. Critical Power Install Technician: Cindy Arreola DCPIA - Discharge Planning Initial Assessment Updated by [email or web address]: Cindy Elba on 12/18/17 12:34 pm * Is the patient Alert and Oriented? Yes * How many steps to enter\exit or inside your home? 4/0 * PCP Dr. Loyd * Pharmacy [facility] in [place] * Preadmission Environment Home with Family * ADLs Partial Dependent * Partial ADLs (Assistance needed) Ambulation Medication Management * Equipment Walker * List name and contact numbers for known caregivers / representatives who currently or will assist patient after discharge: Jamila Ibarra - DTR - [phone] Perry Ibarra - grand son - unknown number * Verbal permission to speak to the caregivers and representatives has been obtained from the patient. Yes * Community resources currently utilized None * Additional services required to return to the preadmission environment? Yes * Can the patient safely return to the preadmission environment? No * Has this patient been hospitalized within the prior 30 days at any hospital? No Last DP export: 12/25/17 12:18 Patient Name: EYAL LOGAN Page 13286 at 1110 All edits/amendments must be made on the electronic document DICTATION DATE: 12/27/17 1110 MASTER OCEAN YACHT: WIL 12/27/17 1110 RPT#: [id number] DC DATE:12/26/17 STATUS: DIS IN [facility] [address] [place] [address] END OF REPORT
--- NOTE | ~2017-12-10 | EC ---
PATIENT:EYAL LOGAN DATE OF SERVICE: 12/10/17 SEX: M MEDICAL RECORD: [id number] DATE OF : 54 LOCATION:D.M2 D.213 AGE OF PATIENT: 67 ADMISSION DATE: 12/10/17 REFERRING PHYSICIAN: INTERPRETING PHYSICIAN: ARTIS WALTERS MD ECHOCARDIOGRAM REPORT ECHO CHARGES 4 ECHO COMPLETE Date: 12/11/17 CLINICAL DIAGNOSIS: SOB, ELEVATED BNP ECHOCARDIOGRAPHIC MEASUREMENTS (adult normal given) AC root (d.<3.7cm) 3.1 cm LV Septum d (<1.2 cm> 1.5 cm Valve Excursion 2.0 cm LV Septum (systole) 1.5 cm Left Atria (s.<4.0cm> 3.5 cm LVPW d(<1.2cm) 1.1 cm RV (d.<2.3cm) 2.8 cm LVPW (sytole) 1.1 cm LV diastole(<5.6CM) 5.6 cm MV E-F(>70mm/sec) cm LV systole 4.7 cm LVOT Diameter 2.2 cm MV exc.(>10mm) cm Est.ejection fraction (50-75%) % DOPPLER: LVIT cm/sec A 32 cm/sec E 76 cm/sec LA cm/sec RVSP 21.0 mmHg LVOT 92 cm/sec AOP1/2T m/s Asc. Ao 156 cm/sec RVOT 107 cm/sec RA cm/sec PA 86 cm/sec AV Gradient Peak 9.7 mmHg AV Mean 7.6 mmHg AV Area 2.2 cm MV Gradient Peak 5.6 mmHg MV Mean 2.5 mmHg MV Area cm COMMENTS: Merchandise Flow Manager: Matheus CULVER Locket Maker: Nestor Roger TAPE# PACS Pericardial Effusion N DATE OF SERVICE: 12/11/2017 PROCEDURE: Echocardiogram. FINDINGS: 1. Left ventricular chamber size is within normal limits. Left ventricular systolic function is normal. Overall ejection fraction 50% to 55%. 2. Left atrium, right atrium, right ventricle chamber size is within normal limits. 3. Valvular structures have normal structure and motion. ECHOCARDIOGRAM REPORT [id number] EYAL LOGAN 4. Doppler interrogation only reveals trace tricuspid regurgitation, no other valvular insufficiency or stenosis. Pulmonary systolic pressure is normal estimated at 21 mmHg. 5. No evidence of pericardial effusion or left ventricular thrombus. TRANSINT:[id number] Voice Confirmation ID: [id number] DOCUMENT ID: [id number] ARTIS WALTERS MD at 1059 CC: [id number] DICTATION DATE: 12/11/171846 JET OPERATOR: 12/11/17 2231 ADM IN [facility] [address] [place] [address]
--- NOTE | ~2017-12-10 | MORECARE ---
CASE MANAGEMENT DISCHARGE SUMMARY PATIENT: EYAL LOGAN UNIT: [id number] ADM DATE: 12/10/17 AGE: 67 : 54 SEX: M ROOM/BED: D.2235 AUTHOR: TERESA,DOC PHYSICIAN: REFERRING PHYSICIAN: JESSICA CHUI MD DATE OF SERVICE: 12/18/17 Discharge Plan Patient Name: EYAL LOGAN Facility: [facility]:[place] : 1950 Planned Disposition: Inpatient Rehab Anticipated Discharge Date: Discharge Date: Expected LOS: Initial Reviewer: [email or web address] Initial Review Date: 12/18/2017 Generated: 12/18/17 1:37 pm Comments DCP- Discharge Planning Updated by [id number]: Cindy Arreola on 12/18/17 11:[address] Patient Name: EYAL LOGAN Admission Status: ER Accout number: [id number] Admission Date: 12-10-2017 : 1950 Admission Diagnosis:SEPSIS, UNSPECIFIED ORGANISM Attending: JESSICA CHIU Current LOS: 8 Anticipated DC Date: Planned Disposition: Inpatient Rehab Primary Insurance: MEDICARE A & B Discharge Planning Comments: CM met with patient to discuss discharge planning, he is alone in the room. He states he lives with his grand son (Perry), Perry's girl friend and 2 babies. He states that he ambulates with a walker and his daughter sets up his medications for him, otherwise he is independent. States he drives some, but not a lot any more. States he would like to go to inpatient rehab here at [facility] prior to discharge home. He does not use any HHS or have a DME preference at this time. CM will continue to follow and assist with discharge planning/needs. Vat Tender: Cindy Arreola DCPIA - Discharge Planning Initial Assessment Updated by [email or web address]: Cindy Arreola on 12/18/17 12:34 pm * Is the patient Alert and Oriented? Yes * How many steps to enter\exit or inside your home? 4/0 * PCP Dr. Loyd * Pharmacy [facility] in [place] * Preadmission Environment Home with Family * ADLs Partial Dependent * Partial ADLs (Assistance needed) Ambulation Medication Management * Equipment Walker * List name and contact numbers for known caregivers / representatives who currently or will assist patient after discharge: Jamila Ibarra - DTR - [phone] Perry Ibarra - grand son - unknown number * Verbal permission to speak to the caregivers and representatives has been obtained from the patient. Yes * Community resources currently utilized None * Additional services required to return to the preadmission environment? Yes * Can the patient safely return to the preadmission environment? No * Has this patient been hospitalized within the prior 30 days at any hospital? No Patient Name: EYAL LOGAN Page 00035 at 1238 All edits/amendments must be made on the electronic document DICTATION DATE: 12/18/17 1237 DIRECTOR SERVICE: WIL 12/18/17 1237 RPT#: [id number] DC DATE: STATUS: ADM IN [facility] [address] [place] [address] END OF REPORT
--- NOTE | ~2017-12-10 | MORECARE ---
CASE MANAGEMENT DISCHARGE SUMMARY PATIENT: EYAL LOGAN UNIT: [id number] ADM DATE: 12/10/17 AGE: 67 : 52 SEX: M ROOM/BED: D.2235 AUTHOR: DILIA MOORE PHYSICIAN: REFERRING PHYSICIAN: JESSICA CHIU MD DATE OF SERVICE: 12/25/17 Discharge Plan Patient Name: EYAL LOGAN Facility: [facility]:[place] : 1950 Planned Disposition: Inpatient Rehab Anticipated Discharge Date: Discharge Date: Expected LOS: Initial Reviewer: [email or web address] Initial Review Date: 12/18/2017 Generated: 12/25/17 2:18 pm Comments DCP- Discharge Planning Updated by [email or web address]: Cindy Arreola on 12/25/17 12:[address] I spoke with patient regarding discharge planning and rehab. I informed him he would need to participate in inpatient rehab for 3 hours total a day. He states he will participate in rehab. I informed him if he was unable to participate he may need to go to a skilled facility. He states he has been at [facility] before and would go there again if he is turned down by our rehab but he would prefer to stay here. OCTAVIA for [facility] signed. CM will continue to follow and assist with discharge planning/needs. DCP- Discharge Planning Updated by [email or web address]: Airam Walker on 12/22/17 3:[address] sherrill with rehab stated that they will watch him over the weekend to see how he progresses. CM will continue to assist with DC planning DCP- Discharge Planning Updated by [email or web address]: Cindy Arreola on 12/18/17 11:[address] Patient Name: EYAL LOGAN Admission Status: ER Accout number: [id number] Admission Date: 12-10-2017 : 1950 Admission Diagnosis:SEPSIS, UNSPECIFIED ORGANISM Attending: JESSICA CHIU Current LOS: 8 Anticipated DC Date: Planned Disposition: Inpatient Rehab Primary Insurance: MEDICARE A & B Discharge Planning Comments: CM met with patient to discuss discharge planning, he is alone in the room. He states he lives with his grand son (Perry), Perry's girl friend and 2 babies. He states that he ambulates with a walker and his daughter sets up his medications for him, otherwise he is independent. States he drives some, but not a lot any more. States he would like to go to inpatient rehab here at [facility] prior to discharge home. He does not use any HHS or have a DME preference at this time. CM will continue to follow and assist with discharge planning/needs. Glost Kiln Operator: Cindy Arreola DCPIA - Discharge Planning Initial Assessment Updated by [email or web address]: Cindy Elba on 12/18/17 12:34 pm * Is the patient Alert and Oriented? Yes * How many steps to enter\exit or inside your home? 4/0 * PCP Dr. Loyd * Pharmacy [facility] in [place] * Preadmission Environment Home with Family * ADLs Partial Dependent * Partial ADLs (Assistance needed) Ambulation Medication Management * Equipment Walker * List name and contact numbers for known caregivers / representatives who currently or will assist patient after discharge: Jamila Ibarra - R - [phone] Perry Ibarra - grand son - unknown number * Verbal permission to speak to the caregivers and representatives has been obtained from the patient. Yes * Community resources currently utilized None * Additional services required to return to the preadmission environment? Yes * Can the patient safely return to the preadmission environment? No * Has this patient been hospitalized within the prior 30 days at any hospital? No Last DP export: 12/22/17 3:19 Patient Name: EYAL LOGAN Page 35678 at 1318 All edits/amendments must be made on the electronic document DICTATION DATE: 12/25/17 1318 FLOORING MACHINE FEEDER: WIL 12/25/17 1318 RPT#: [id number] DC DATE: STATUS: ADM IN [facility] [address] [place] [address] END OF REPORT
--- NOTE | ~2017-12-10 | MORECARE ---
CASE MANAGEMENT DISCHARGE SUMMARY PATIENT: EYAL LOGAN UNIT: [id number] ADM DATE: 12/10/17 AGE: 67 : 52 SEX: M ROOM/BED: D.2235 AUTHOR: TERESA,DOC PHYSICIAN: REFERRING PHYSICIAN: JESSICA CHIU MD DATE OF SERVICE: 12/22/17 Discharge Plan Patient Name: EYAL LOGAN Facility: [facility]:[place] : 1950 Planned Disposition: Inpatient Rehab Anticipated Discharge Date: Discharge Date: Expected LOS: Initial Reviewer: [email or web address] Initial Review Date: 12/18/2017 Generated: 12/22/17 5:19 pm Comments DCP- Discharge Planning Updated by [email or web address]: Airam Walker on 12/22/17 3:[address] sherrill with rehab stated that they will watch him over the weekend to see how he progresses. CM will continue to assist with DC planning DCP- Discharge Planning Updated by [email or web address]: Cindy Arreola on 12/18/17 11:[address] Patient Name: EYAL LOGAN Admission Status: ER Accout number: [id number] Admission Date: 12-10-2017 : 1950 Admission Diagnosis:SEPSIS, UNSPECIFIED ORGANISM Attending: JESSICA CHIU Current LOS: 8 Anticipated DC Date: Planned Disposition: Inpatient Rehab Primary Insurance: MEDICARE A & B Discharge Planning Comments: CM met with patient to discuss discharge planning, he is alone in the room. He states he lives with his grand son (Perry), Perry's girl friend and 2 babies. He states that he ambulates with a walker and his daughter sets up his medications for him, otherwise he is independent. States he drives some, but not a lot any more. States he would like to go to inpatient rehab here at [facility] prior to discharge home. He does not use any HHS or have a DME preference at this time. CM will continue to follow and assist with discharge planning/needs. Backfiller: Cindy Arreola DCPIA - Discharge Planning Initial Assessment Updated by [email or web address]: Cindy Arreola on 12/18/17 12:34 pm * Is the patient Alert and Oriented? Yes * How many steps to enter\exit or inside your home? 4/0 * PCP Dr. Loyd * Pharmacy [facility] in [place] * Preadmission Environment Home with Family * ADLs Partial Dependent * Partial ADLs (Assistance needed) Ambulation Medication Management * Equipment Walker * List name and contact numbers for known caregivers / representatives who currently or will assist patient after discharge: Jamila Ibarra - DTR - [phone] Perry Ibarra - grand son - unknown number * Verbal permission to speak to the caregivers and representatives has been obtained from the patient. Yes * Community resources currently utilized None * Additional services required to return to the preadmission environment? Yes * Can the patient safely return to the preadmission environment? No * Has this patient been hospitalized within the prior 30 days at any hospital? No Last DP export: 12/18/17 11:38 Patient Name: EYAL LOGAN Page 43659 at 1619 All edits/amendments must be made on the electronic document DICTATION DATE: 12/22/171617 COMMERCIAL GLAZIER: WIL 12/22/171617 RPT#: [id number] DC DATE: STATUS: ADM IN [facility] [address] [place] [address] END OF REPORT
--- NOTE | ~2017-12-10 | HEMODYNAMI ---
PATIENT:EYAL LOGAN MEDICAL RECORD: [id number] : 54 LOCATION:D.MS [address]2235 ADMISSION DATE: 12/10/17 Generatedon:12/21/201713:48 Patient name: EYLA LOGAN Patient #: [id number] SSN: D OB: 1950 Date of study: 12/21/2017 Page: Of Hemodynamic Procedure Report Patient Data Patient Demographics Procedure consent was obtained First Name: EYAL Gender: Male Last Name: : 1950 Middle Initial: DUANE Age: 67 year(s) Patient #: [id number] Race: Additional ID: [id number] Contact details [address]: [address] [place] [address] State: [place] City: [place] Zip code: [address] Admission Admission Data Admission Date: 12/10/2017 Admission Time: 18:15 Room #: D.2235 Procedure Procedure Types Cath Procedure Diagnostic Procedure RODERICK Procedure Description Procedure Date Procedure Date: 12/21/2017 Procedure Start Time: 13:33 Procedure End Time: 13:40 Procedure Staff Name Function Dave Will MD Performing Physician lCaudia Ying RT Monitor Jamila Garces RT Scrub Zainab Suazo RN Nurse Jimmy Toldeo Instrument Installer Procedure Data Cath Procedure Fluoroscopy Diagnostic fluoroscopy Total fluoroscopy Time: 0 time: 0 min min Diagnostic fluoroscopy Total fluoroscopy dose: 0 dose: 0 mGy mGy Contrast Material Contrast Material Type Amount (ml) Isovue 300 0 Estimated blood loss: 0 ml Procedure Complications No complications Procedure Medications Medication Administration Route Dosage Oxygen etCO2 Nasal cannula 4 l/min Hurricaine Omega P.O. 1 Sprays Refer to Anesthesia Notes for Sedation Medications Atropine I.V. 0.5 mg Hemodynamics Rest Heart Rate: 92 (bpm) Snapshots Pre Cath Intra NCS Post Cath Vital Signs Time Heart Resp SPO2 etCO2 NIBP (mmHg) Rhythm Pain Sedation Rate (ipm) (%) (mmHg) Status Level (bpm) 13:30:52 96 14 93 29.3 142/83(119) NSR 0 (11) 10(A) , No pain 13:36:38 55 14 93 0.7 58/29(44) NSR 0 (11) 9(A) , No pain 13:40:15 97 28 98 0 160/107(134) NSR 0 (11) 9(A) , No pain 13:44:13 97 25 97 0 149/109(138) NSR 0 (11) 10(A) , No pain 13:46:10 94 20 96 9.7 146/98(124) NSR 0 (11) 10(A) , No pain Medications Time Medication Route Dose Verified Delivered Reason Notes Effect iveness by by 13:31:18 Oxygen etCO2 4 Dave Lamb used for Nasal l/min St Ronald Suazo RN procedure cannula MD 13:31:37 Hurricaine P.O. 1 Dave Lamb Per Omega Sprays St Ronald Suazo RN physician 13:31:40 Refer to Dave Lamb Anesthesia St Ronald Suazo RN Notes for MD Sedation Medications 13:36:45 Atropine I.V. 0.[address] Ronald Suazo RN bradycardia MD Procedure Log Time Note 13:05:58 Informed consent obtained and on chart 13:06:04 Diagnostic Cath Status : Elective 13:07:03 Claudia Ying RT(R) sent for patient. Start room use. 13:07:04 Time tracking: Regular hours (M-F 7:00 - 5:00) 13:07:09 Plan of Care:Hemodynamics will remain stable., Cardiac rhythm will remain stable., Comfort level will be maintained., Respiratory function will remain adequate., Patient/ family verbilizes understanding of procedure., Procedure tolerated without complication., Recovers from procedure without complications.. 13:29:36 Patient received from Med II to CCL 2 Alert and oriented. Tansferred to table in Supine position. 13:29:37 Warm blankets applied, and charlene hugger turned on for patient comfort. 13:29:38 Correct patient and procedure confirmed by team. 13:29:40 ECG and BP/O2 sat monitors applied to patient. 13:29:41 Vital chart was started 13:29:43 Baseline sample Acquired. 13:29:47 Rhythm: sinus rhythm 13:29:49 Full Disclosure recording started 13:29:54 H&P Date Dictated: 12/21/2017 Within 30 days and on chart., H&P Addendum completed by physician on day of procedure. (MUST COMPLETE FOR ALL OUTPATIENTS). 13:29:55 Pre-procedure instructions explained to patient. 13:29:56 Pre-op teaching completed and patient verbalized understanding. 13:29:57 Family in waiting room. 13:30:02 Patient NPO since Midnight. 13:30:05 Is the patient allergic to Iodine/contrast media? No. 13:30:07 Was the patient premedicated? No 13:30:09 Is patient on blood thinner?No 13:31:18 Oxygen 4 l/min etCO2 Nasal cannula was administered by Zainab Suazo RN; used for procedure; 13:31:37 Hurricaine Omega 1 Sprays P.O. was administered by Zainab Suazo RN; Per physician; 13:31:40 Refer to Anesthesia Notes for Sedation Medications was administered by Zainab Suazo RN; ; 13:32:12 Patient diabetic? No. 13:32:14 Previous problem with sedation/anesthesia? No ? 13:32:18 Snore? Yes 13:32:20 Sleep apnea? Yes 13:32:21 Deviated septum? No 13:32:22 Opens mouth fully? Yes 13:32:23 Sticks out tongue? Yes 13:32:24 Airway obstruction? No ? 13:32:32 Dentures? No ? 13:32:49 IV patent on arrival in left forearm with 0.9% NaCl at [facility]. 13:32:51 Lab results completed and on chart. 13:32:54 Alarms reviewed by R. N. 13:32:55 Sharps counted by scrub and verified by R.N. 13:32:56 Physician arrived 13:32:57 --------ALL STOP TIME OUT------ 13:32:57 Final Timeout: patient, procedure, and site verified with staff and physician. All members of the team are in agreement. 13:33:02 Physical assessment completed. ASA score P 3 - A patient with severe systemic disease as per Dave Will MD. 13:33:06 Sedation plan: IV Moderate Sedation Medication:Versed, Fentanyl 13:33:07 Gino Hogan here administering anesthesia 13:33:47 Procedure started. 13:34:04 Jimmy Toledo Grocery Carrier present for RODERICK. 13:34:05 RODERICK started. 13:36:45 Atropine 0.5 mg I.V. was administered by Zainab Suazo RN; For bradycardia; 13:38:55 RODERICK completed. 13:40:14 Procedure ended.(Physican Out) 13:40:21 Fluoroscopy time 00.00 minutes. 13:40:23 Fluoroscopy dose: 0 mGy 13:40:23 Flurop Dose total: 0 13:40:27 Contrast amount:Isovue 300 0ml. 13:40:28 Sharps counted by scrub and verified by R.N. 13:40:30 Insertion/operative site no bleeding no hematoma. 13:40:35 Post procedure rhythm: unchanged. 13:40:37 Estimated blood loss: 0 ml 13:40:38 Post procedure instruction explained to patient.Patient verbalizes understanding. 13:40:39 Patient needs reinforcement of post procedure teaching. 13:40:45 Procedure and supply charges have been captured, reviewed, submitted and are correct. 13:40:49 Procedure Complication : No complications 13:40:51 Vital chart was stopped 13:40:52 See physician's report for complete and final results. 13:40:54 Report given to Med II. 13:40:57 Patient transfered to Med II with Stretcher. 13:40:59 Procedure ended. 13:40:59 Full Disclosure recording stopped 13:41:06 End room use (Document Last) Signature Audit [place] Stage Time Signature Unsigned Intra-Procedure 12/21/2017 Claudia Ying 1:48:38 PM RT(R) Signatures Monitor : Claudia Ying RT Signature : Date : Time : [facility] [address] [place] [address]
[~2017-12-10 14:22] MED LIST changes: +NICODERM C1 PATCH .3 TRANSDERM
[2017-12-10] MEDS ORDERED: VITAMIN D250000 UNIT PO (14:35)
[2017-12-10] MEDS ORDERED: LEVOXYL150 MCG PO (14:35)
[2017-12-10 15:50] LABS: BASOPHILS 0.1 % (0-2); EOSINOPHILS 0 % (0-7); HEMATOCRIT 41.9 % (42.0-54.0); HEMOGLOBIN 14.4 g/dL (13.5-17.5); IMMATURE GRANULOCYTES 2.5 % (0-5); LYMPHOCYTES 2.5 % (15-50); MCHC 34.4 g/dL (31.0-37.0); MCV 110.6 fL (80.0-100.0); MEAN PLATELET VOLUME 10.6 fL (7.4-10.4); MONOCYTES 7.3 % (2-11); NEUTROPHILS 87.6 % (40-80); RBC 3.79 10x6/uL (4.20-6.10); RDW 15.3 % (11.5-14.5); WBC 14.3 10x3/uL (4.8-10.8)
[2017-12-10 15:52] LABS: PLATELET COUNT 141 10x3/uL (130-400)
[2017-12-10 16:09] LABS: ALBUMIN 3.7 g/dL (3.4-5.0); ALKALINE PHOSPHATASE 62 U/L (46-116); ALT (SGPT) 137 U/L (10-68); BILIRUBIN - TOTAL 1.16 mg/dL (0.2-1.3); CALC OSMOLALITY 261 mosm/kg (275-300); CALCIUM 9.1 mg/dL (8.5-10.1); CARBON DIOXIDE 20.2 mmol/L (21.0-32.0); CHLORIDE - SERUM 92 mmol/L (98-107); CREATININE - SERUM 2.1 mg/dL (0.6-1.3); GLUCOSE 105 mg/dL (74-106); POTASSIUM - SERUM 5.3 mmol/L (3.5-5.1); PROTEIN - SERUM 8.4 g/dL (6.4-8.2); SODIUM 128 mmol/L (136-145); UREA NITROGEN 27 mg/dL (7-18); eGFR NON AFRICAN AMERICAN 34 mL/min (90-120)
[2017-12-10 16:21] LABS: CKMB 4.6 U/L (0.0-3.6); MAGNESIUM - SERUM 1.3 mg/dL (1.8-2.4); PRO BNP 2369 pg/mL (0-125); TROPONIN-I 0.043 ng/mL (0.000-0.060)
[2017-12-10 16:27] LABS: CREATINE KINASE 1579 UL (21-232)
[2017-12-11] VITALS (24 sets, daily range): BP systolic 118–181; BP diastolic 74–119; BMI 34.1
[2017-12-11 00:17] LABS: APPEARANCE CLEAR (CLEAR); BILIRUBIN NEGATIVE (NEGATIVE); COLOR YELLOW (YELLOW); GLUCOSE NEGATIVE (NEGATIVE); KETONE NEGATIVE (NEGATIVE); NITRITE NEGATIVE (NEGATIVE); PROTEIN TRACE mg/dL (NEGATIVE); SPECIFIC GRAVITY 1.015 (1.005-1.020); UROBILINOGEN NORMAL (NORMAL)
[2017-12-11 00:20] LABS: RED CELLS - URINE OCC /hpf (0-5); WHITE CELLS - URINE OCC /hpf (0-5)
[2017-12-11 00:21] LABS: AMORPHOUS SEDIMENT <1+ /lpf (NONE SEEN); BACTERIA MANY /hpf (NONE SEEN); EPITHELIAL CELLS RARE /hpf (0-5)
[2017-12-11 05:06] LABS: BASOPHILS 0 % (0-2); EOSINOPHILS 0 % (0-7); HEMATOCRIT 36.2 % (42.0-54.0); HEMOGLOBIN 12.2 g/dL (13.5-17.5); IMMATURE GRANULOCYTES 2.3 % (0-5); LYMPHOCYTES 3.5 % (15-50); MCHC 33.7 g/dL (31.0-37.0); MCV 109.7 fL (80.0-100.0); MEAN PLATELET VOLUME 10.5 fL (7.4-10.4); MONOCYTES 2.8 % (2-11); NEUTROPHILS 91.4 % (40-80); PLATELET COUNT 117 10x3/uL (130-400)
[2017-12-11 05:18] LABS: WBC 9.6 10x3/uL (4.8-10.8)
[2017-12-11 05:35] LABS: BILIRUBIN - TOTAL 0.83 mg/dL (0.2-1.3); CALCIUM 7.7 mg/dL (8.5-10.1); CARBON DIOXIDE 22.1 mmol/L (21.0-32.0); CREATININE - SERUM 1.6 mg/dL (0.6-1.3); PROTEIN - SERUM 6.6 g/dL (6.4-8.2)
[2017-12-11 05:39] LABS: ALBUMIN 2.7 g/dL (3.4-5.0); ANION GAP 15.1 mmol/L (8-16); POTASSIUM - SERUM 4.2 mmol/L (3.5-5.1)
[2017-12-12] VITALS (24 sets, daily range): BP systolic 127–191; BP diastolic 76–118
[2017-12-12 05:21] LABS: APTT 49.5 SECONDS (22.8-39.4); INR 1.13 (0.85-1.17); PROTIME 14.1 SECONDS (11.6-15.0)
[2017-12-12 05:23] LABS: BASOPHILS 0.1 % (0-2); EOSINOPHILS 0 % (0-7); HEMATOCRIT 35.1 % (42.0-54.0); HEMOGLOBIN 11.6 g/dL (13.5-17.5); IMMATURE GRANULOCYTES 0.5 % (0-5); LYMPHOCYTES 2.3 % (15-50); MCH 37.2 pg (26.0-34.0); MCV 112.5 fL (80.0-100.0); MEAN PLATELET VOLUME 10.6 fL (7.4-10.4); MONOCYTES 5.4 % (2-11); NEUTROPHILS 91.7 % (40-80); PLATELET COUNT 115 10x3/uL (130-400); RBC 3.12 10x6/uL (4.20-6.10); RDW 15.6 % (11.5-14.5); WBC 14.6 10x3/uL (4.8-10.8)
[2017-12-12 05:29] LABS: TOTAL IRON BIND CAPACITY 222 ug/dl (260-445)
[2017-12-12 05:43] LABS: FERRITIN 934 ng/mL (3-244); LDH 328 U/L (85-227); PHOSPHOROUS 3.5 mg/dL (2.5-4.9)
[2017-12-12 05:47] LABS: CREATINE KINASE 1252 UL (21-232); MAGNESIUM - SERUM 2.5 mg/dL (1.8-2.4)
[2017-12-12 05:48] LABS: CKMB 2.1 U/L (0.0-3.6)
[2017-12-12 06:23] LABS: % SATURATION 5 % (15-55); IRON 12 ug/dl (35-150); UNSAT IRON BIND CAPACITY 210 ug/dl (150-375)
[2017-12-12 11:07] LABS: ALBUMIN 2.6 g/dL (3.4-5.0); ANION GAP 16.9 mmol/L (8-16); BILIRUBIN - TOTAL 0.63 mg/dL (0.2-1.3); CALCIUM 7.9 mg/dL (8.5-10.1); CARBON DIOXIDE 22.9 mmol/L (21.0-32.0); CREATININE - SERUM 1.2 mg/dL (0.6-1.3); POTASSIUM - SERUM 4.8 mmol/L (3.5-5.1); PROTEIN - SERUM 6.1 g/dL (6.4-8.2)
[2017-12-13] VITALS (19 sets, daily range): BP systolic 103–184; BP diastolic 76–113
[2017-12-13 04:33] LABS: BASOPHILS 0.1 % (0-2); EOSINOPHILS 0 % (0-7); HEMATOCRIT 34.9 % (42.0-54.0); HEMOGLOBIN 12.1 g/dL (13.5-17.5); IMMATURE GRANULOCYTES 0.3 % (0-5); LYMPHOCYTES 3.9 % (15-50); MCH 38.4 pg (26.0-34.0); MCHC 34.7 g/dL (31.0-37.0); MCV 110.8 fL (80.0-100.0); MEAN PLATELET VOLUME 10.8 fL (7.4-10.4); MONOCYTES 11.8 % (2-11); NEUTROPHILS 83.9 % (40-80); PLATELET COUNT 93 10x3/uL (130-400); RBC 3.15 10x6/uL (4.20-6.10); RDW 15.2 % (11.5-14.5)
[2017-12-13 04:38] LABS: WBC 9.7 10x3/uL (4.8-10.8)
[2017-12-13 05:02] LABS: ALBUMIN 2.5 g/dL (3.4-5.0); ALKALINE PHOSPHATASE 59 U/L (46-116); ALT (SGPT) 54 U/L (10-68); BILIRUBIN - TOTAL 0.73 mg/dL (0.2-1.3); CALCIUM 8.1 mg/dL (8.5-10.1); CARBON DIOXIDE 24.2 mmol/L (21.0-32.0); CHLORIDE - SERUM 100 mmol/L (98-107); GLUCOSE 87 mg/dL (74-106); PROTEIN - SERUM 6.5 g/dL (6.4-8.2); SODIUM 134 mmol/L (136-145)
[2017-12-13 05:07] LABS: CALC OSMOLALITY 267 mosm/kg (275-300); CREATININE - SERUM 0.8 mg/dL (0.6-1.3); POTASSIUM - SERUM 3.8 mmol/L (3.5-5.1); UREA NITROGEN 16 mg/dL (7-18); eGFR NON AFRICAN AMERICAN > 90 mL/min (90-120)
[2017-12-14 04:30] LABS: BASOPHILS 0 % (0-2); EOSINOPHILS 0 % (0-7); HEMATOCRIT 30.2 % (42.0-54.0); HEMOGLOBIN 10.2 g/dL (13.5-17.5); IMMATURE GRANULOCYTES 0.6 % (0-5); LYMPHOCYTES 10.6 % (15-50); MCH 37.1 pg (26.0-34.0); MCHC 33.8 g/dL (31.0-37.0); MCV 109.8 fL (80.0-100.0); MEAN PLATELET VOLUME 10.6 fL (7.4-10.4); NEUTROPHILS 74.8 % (40-80); PLATELET COUNT 87 10x3/uL (130-400); RBC 2.75 10x6/uL (4.20-6.10); WBC 9.7 10x3/uL (4.8-10.8)
[2017-12-14 04:51] LABS: CALC OSMOLALITY 264 mosm/kg (275-300); CALCIUM 7.8 mg/dL (8.5-10.1); CARBON DIOXIDE 26.6 mmol/L (21.0-32.0); CHLORIDE - SERUM 98 mmol/L (98-107); CREATININE - SERUM 0.9 mg/dL (0.6-1.3); GLUCOSE 99 mg/dL (74-106); POTASSIUM - SERUM 3.3 mmol/L (3.5-5.1); SODIUM 133 mmol/L (136-145); eGFR NON AFRICAN AMERICAN 90 mL/min (90-120)
[2017-12-14 05:04] LABS: UREA NITROGEN 10 mg/dL (7-18)
[2017-12-14 07:00] VITALS: BP 133/70
[2017-12-14 11:00] VITALS: BP 130/91
[2017-12-14 19:00] VITALS: BP 91/55
[2017-12-15] VITALS (15 sets, daily range): BP systolic 80–154; BP diastolic 53–98; Ht 177.8 cm; Wt 110.9 kg
[2017-12-15 06:55] LABS: BASOPHILS 0.1 % (0-2); EOSINOPHILS 0.6 % (0-7); HEMATOCRIT 22.7 % (42.0-54.0); HEMOGLOBIN 7.6 g/dL (13.5-17.5); IMMATURE GRANULOCYTES 1.1 % (0-5); LYMPHOCYTES 13.6 % (15-50); MCH 36.7 pg (26.0-34.0); MCHC 33.5 g/dL (31.0-37.0); MCV 109.7 fL (80.0-100.0); MEAN PLATELET VOLUME 11.4 fL (7.4-10.4); MONOCYTES 19.4 % (2-11); NEUTROPHILS 65.2 % (40-80); PLATELET COUNT 143 10x3/uL (130-400); RBC 2.07 10x6/uL (4.20-6.10); RDW 15.3 % (11.5-14.5); WBC 7.9 10x3/uL (4.8-10.8)
[2017-12-15 07:18] LABS: CALC OSMOLALITY 265 mosm/kg (275-300); CARBON DIOXIDE 24.9 mmol/L (21.0-32.0); CHLORIDE - SERUM 97 mmol/L (98-107); GLUCOSE 100 mg/dL (74-106); POTASSIUM - SERUM 3.3 mmol/L (3.5-5.1); SODIUM 132 mmol/L (136-145); UREA NITROGEN 15 mg/dL (7-18); eGFR NON AFRICAN AMERICAN 80 mL/min (90-120)
[2017-12-15 08:33] LABS: APTT 45.1 SECONDS (22.8-39.4); INR 1.07 (0.85-1.17); PROTIME 13.5 SECONDS (11.6-15.0)
[2017-12-15 08:45] LABS: HEMATOCRIT 25.2 % (42.0-54.0); HEMOGLOBIN 8.5 g/dL (13.5-17.5)
[2017-12-15 12:35] LABS: HEMATOCRIT 22.6 % (42.0-54.0); HEMOGLOBIN 7.6 g/dL (13.5-17.5)
[2017-12-15 22:18] LABS: HEMATOCRIT 25.7 % (42.0-54.0); HEMOGLOBIN 8.7 g/dL (13.5-17.5)
[2017-12-16] VITALS (16 sets, daily range): BP systolic 113–164; BP diastolic 73–108
[2017-12-16 03:39] LABS: BASOPHILS 0.2 % (0-2); EOSINOPHILS 1.4 % (0-7); HEMATOCRIT 25.3 % (42.0-54.0); HEMOGLOBIN 8.4 g/dL (13.5-17.5); IMMATURE GRANULOCYTES 1.4 % (0-5); LYMPHOCYTES 11.6 % (15-50); MCH 35.3 pg (26.0-34.0); MCHC 33.2 g/dL (31.0-37.0); MEAN PLATELET VOLUME 10.6 fL (7.4-10.4); MONOCYTES 16.4 % (2-11); RBC 2.38 10x6/uL (4.20-6.10); RDW 19.3 % (11.5-14.5)
[2017-12-16 03:44] LABS: MCV 106.3 fL (80.0-100.0); PLATELET COUNT 214 10x3/uL (130-400); WBC 9.9 10x3/uL (4.8-10.8)
[2017-12-16 03:47] LABS: INR 1.03 (0.85-1.17); PROTIME 13.1 SECONDS (11.6-15.0)
[2017-12-16 04:12] LABS: ALBUMIN 2.1 g/dL (3.4-5.0); ALKALINE PHOSPHATASE 56 U/L (46-116); ALT (SGPT) 26 U/L (10-68); BILIRUBIN - DIRECT 0.53 mg/dL (0.00-0.30); BILIRUBIN - INDIRECT 0.45 mg/dL (0.00-1.00); BILIRUBIN - TOTAL 0.98 mg/dL (0.2-1.3); CALC OSMOLALITY 268 mosm/kg (275-300); CALCIUM 8.3 mg/dL (8.5-10.1); CHLORIDE - SERUM 100 mmol/L (98-107); CREATINE KINASE 776 UL (21-232); CREATININE - SERUM 0.9 mg/dL (0.6-1.3); GLUCOSE 99 mg/dL (74-106); MAGNESIUM - SERUM 2.6 mg/dL (1.8-2.4); PHOSPHOROUS 3.1 mg/dL (2.5-4.9); POTASSIUM - SERUM 3.4 mmol/L (3.5-5.1); SODIUM 134 mmol/L (136-145); UREA NITROGEN 16 mg/dL (7-18); eGFR NON AFRICAN AMERICAN 90 mL/min (90-120)
[2017-12-16 04:15] LABS: CKMB 1.9 U/L (0.0-3.6)
[2017-12-16 11:00] LABS: HEMATOCRIT 26.1 % (42.0-54.0); HEMOGLOBIN 8.7 g/dL (13.5-17.5)
[2017-12-17 05:48] LABS: BASOPHILS 0.2 % (0-2); EOSINOPHILS 1.4 % (0-7); HEMATOCRIT 25.4 % (42.0-54.0); HEMOGLOBIN 8.4 g/dL (13.5-17.5); IMMATURE GRANULOCYTES 2.5 % (0-5); LYMPHOCYTES 12.2 % (15-50); MCH 35.3 pg (26.0-34.0); MCHC 33.1 g/dL (31.0-37.0); MCV 106.7 fL (80.0-100.0); MEAN PLATELET VOLUME 10.7 fL (7.4-10.4); MONOCYTES 12.4 % (2-11); NEUTROPHILS 71.3 % (40-80); PLATELET COUNT 209 10x3/uL (130-400); RBC 2.38 10x6/uL (4.20-6.10); RDW 19.3 % (11.5-14.5); WBC 10.2 10x3/uL (4.8-10.8)
[2017-12-17 06:03] VITALS: BP 130/82
[2017-12-17 11:35] LABS: CALC OSMOLALITY 271 mosm/kg (275-300); CALCIUM 8.3 mg/dL (8.5-10.1); CARBON DIOXIDE 24.7 mmol/L (21.0-32.0); CHLORIDE - SERUM 102 mmol/L (98-107); CREATININE - SERUM 0.9 mg/dL (0.6-1.3); GLUCOSE 104 mg/dL (74-106); POTASSIUM - SERUM 3.1 mmol/L (3.5-5.1); SODIUM 136 mmol/L (136-145); UREA NITROGEN 13 mg/dL (7-18); eGFR NON AFRICAN AMERICAN 90 mL/min (90-120)
[2017-12-17 14:11] VITALS: BP 135/72
[2017-12-17 20:00] VITALS: BP 134/72
[2017-12-18 06:06] LABS: BASOPHILS 0 % (0-2); EOSINOPHILS 1.2 % (0-7); HEMATOCRIT 24.9 % (42.0-54.0); HEMOGLOBIN 8.1 g/dL (13.5-17.5); IMMATURE GRANULOCYTES 2.5 % (0-5); LYMPHOCYTES 12.2 % (15-50); MCH 34.9 pg (26.0-34.0); MCHC 32.5 g/dL (31.0-37.0); MCV 107.3 fL (80.0-100.0); MEAN PLATELET VOLUME 10.2 fL (7.4-10.4); MONOCYTES 11.5 % (2-11); NEUTROPHILS 72.6 % (40-80); RBC 2.32 10x6/uL (4.20-6.10); WBC 8.7 10x3/uL (4.8-10.8)
[2017-12-18 06:10] VITALS: BP 144/87
[2017-12-18 06:17] LABS: PLATELET COUNT 348 10x3/uL (130-400)
[2017-12-18 06:31] LABS: CALC OSMOLALITY 275 mosm/kg (275-300); CALCIUM 7.7 mg/dL (8.5-10.1); CARBON DIOXIDE 24.8 mmol/L (21.0-32.0); CHLORIDE - SERUM 104 mmol/L (98-107); CREATININE - SERUM 0.8 mg/dL (0.6-1.3); GLUCOSE 87 mg/dL (74-106); POTASSIUM - SERUM 3.3 mmol/L (3.5-5.1); SODIUM 139 mmol/L (136-145); UREA NITROGEN 10 mg/dL (7-18); eGFR NON AFRICAN AMERICAN > 90 mL/min (90-120)
[2017-12-18 08:21] VITALS: BP 139/82
[2017-12-18 12:38] VITALS: BP 147/89
[2017-12-18 20:00] VITALS: BP 149/85
[2017-12-19 04:56] LABS: BASOPHILS 0 % (0-2); EOSINOPHILS 0.9 % (0-7); HEMATOCRIT 24.9 % (42.0-54.0); HEMOGLOBIN 8.2 g/dL (13.5-17.5); IMMATURE GRANULOCYTES 1.7 % (0-5); LYMPHOCYTES 11.9 % (15-50); MCH 35.5 pg (26.0-34.0); MCHC 32.9 g/dL (31.0-37.0); MCV 107.8 fL (80.0-100.0); MONOCYTES 10.6 % (2-11); NEUTROPHILS 74.9 % (40-80); PLATELET COUNT 371 10x3/uL (130-400); RBC 2.31 10x6/uL (4.20-6.10); WBC 9.2 10x3/uL (4.8-10.8)
[2017-12-19 05:00] VITALS: BP 145/85
[2017-12-19 05:44] LABS: CALCIUM 7.9 mg/dL (8.5-10.1); CARBON DIOXIDE 24.6 mmol/L (21.0-32.0); CHLORIDE - SERUM 104 mmol/L (98-107); CREATININE - SERUM 0.7 mg/dL (0.6-1.3); GLUCOSE 102 mg/dL (74-106); SODIUM 137 mmol/L (136-145); eGFR NON AFRICAN AMERICAN > 90 mL/min (90-120)
[2017-12-19 05:47] LABS: CALC OSMOLALITY 271 mosm/kg (275-300); UREA NITROGEN 7 mg/dL (7-18)
[2017-12-19 05:48] LABS: POTASSIUM - SERUM 2.6 mmol/L (3.5-5.1)
[2017-12-19 07:43] VITALS: BP 171/103
[2017-12-19 10:27] VITALS: BP 147/79
[2017-12-19 11:01] LABS: MAGNESIUM - SERUM 2.2 mg/dL (1.8-2.4); PHOSPHOROUS 3.6 mg/dL (2.5-4.9)
[2017-12-19 16:07] VITALS: BP 149/88
[2017-12-19 20:00] VITALS: BP 140/90
[2017-12-20 05:00] VITALS: BP 119/79
[2017-12-20 06:28] LABS: CALCIUM 8.2 mg/dL (8.5-10.1); CARBON DIOXIDE 24.9 mmol/L (21.0-32.0); CHLORIDE - SERUM 106 mmol/L (98-107); CREATININE - SERUM 0.8 mg/dL (0.6-1.3); GLUCOSE 90 mg/dL (74-106); SODIUM 140 mmol/L (136-145); eGFR NON AFRICAN AMERICAN > 90 mL/min (90-120)
[2017-12-20 06:34] LABS: CALC OSMOLALITY 275 mosm/kg (275-300); POTASSIUM - SERUM 3.6 mmol/L (3.5-5.1); UREA NITROGEN 5 mg/dL (7-18)
[2017-12-20 06:58] LABS: BASOPHILS 0.2 % (0-2); EOSINOPHILS 0.9 % (0-7); HEMATOCRIT 27.5 % (42.0-54.0); LYMPHOCYTES 14.4 % (15-50); MCHC 32.7 g/dL (31.0-37.0); NEUTROPHILS 71.5 % (40-80); PLATELET COUNT 389 10x3/uL (130-400); RDW 19.3 % (11.5-14.5); WBC 8.4 10x3/uL (4.8-10.8)
[2017-12-20 08:26] VITALS: BP 154/91
[2017-12-20 12:16] VITALS: BP 138/85
[2017-12-20 17:05] VITALS: BP 135/78
[2017-12-20 20:00] VITALS: BP 116/82
[2017-12-21] VITALS (10 sets, daily range): BP systolic 128–160; BP diastolic 70–99
[2017-12-21 06:53] LABS: BASOPHILS 0.3 % (0-2); EOSINOPHILS 0.9 % (0-7); HEMATOCRIT 25.6 % (42.0-54.0); HEMOGLOBIN 8.1 g/dL (13.5-17.5); IMMATURE GRANULOCYTES 2.1 % (0-5); LYMPHOCYTES 15.6 % (15-50); MCH 35.2 pg (26.0-34.0); MCHC 31.6 g/dL (31.0-37.0); MCV 111.3 fL (80.0-100.0); MEAN PLATELET VOLUME 9.7 fL (7.4-10.4); MONOCYTES 10.4 % (2-11); NEUTROPHILS 70.7 % (40-80); PLATELET COUNT 386 10x3/uL (130-400); RDW 19.4 % (11.5-14.5); WBC 7.6 10x3/uL (4.8-10.8)
[2017-12-21 07:08] LABS: CALC OSMOLALITY 276 mosm/kg (275-300); CALCIUM 7.8 mg/dL (8.5-10.1); CHLORIDE - SERUM 108 mmol/L (98-107); CREATININE - SERUM 0.8 mg/dL (0.6-1.3); GLUCOSE 83 mg/dL (74-106); POTASSIUM - SERUM 3.4 mmol/L (3.5-5.1); SODIUM 141 mmol/L (136-145); UREA NITROGEN 4 mg/dL (7-18); eGFR NON AFRICAN AMERICAN > 90 mL/min (90-120)
[2017-12-22 06:36] LABS: BASOPHILS 0.2 % (0-2); EOSINOPHILS 0.8 % (0-7); HEMATOCRIT 25.1 % (42.0-54.0); HEMOGLOBIN 8.1 g/dL (13.5-17.5); IMMATURE GRANULOCYTES 1.4 % (0-5); LYMPHOCYTES 12.7 % (15-50); MCH 35.8 pg (26.0-34.0); MCHC 32.3 g/dL (31.0-37.0); MCV 111.1 fL (80.0-100.0); MEAN PLATELET VOLUME 9.3 fL (7.4-10.4); MONOCYTES 8.7 % (2-11); NEUTROPHILS 76.2 % (40-80); PLATELET COUNT 390 10x3/uL (130-400); RBC 2.26 10x6/uL (4.20-6.10); RDW 19.2 % (11.5-14.5); WBC 8.5 10x3/uL (4.8-10.8)
[2017-12-22 06:38] VITALS: BP 151/102
[2017-12-22 06:46] LABS: CALC OSMOLALITY 277 mosm/kg (275-300); CALCIUM 7.9 mg/dL (8.5-10.1); CARBON DIOXIDE 23.2 mmol/L (21.0-32.0); CHLORIDE - SERUM 109 mmol/L (98-107); CREATININE - SERUM 0.8 mg/dL (0.6-1.3); GLUCOSE 104 mg/dL (74-106); POTASSIUM - SERUM 3.7 mmol/L (3.5-5.1); SODIUM 141 mmol/L (136-145); UREA NITROGEN 5 mg/dL (7-18); eGFR NON AFRICAN AMERICAN > 90 mL/min (90-120)
[2017-12-22 08:23] VITALS: BP 139/77
[2017-12-22 12:14] VITALS: BP 136/92
[2017-12-22 15:59] VITALS: BP 150/90
[2017-12-22 22:09] VITALS: BP 148/95
[2017-12-23 06:16] VITALS: BP 157/95
[2017-12-23 06:19] LABS: BASOPHILS 0.4 % (0-2); EOSINOPHILS 1.2 % (0-7); HEMATOCRIT 26.9 % (42.0-54.0); HEMOGLOBIN 8.4 g/dL (13.5-17.5); IMMATURE GRANULOCYTES 0.9 % (0-5); LYMPHOCYTES 15.2 % (15-50); MCH 35.4 pg (26.0-34.0); MCHC 31.2 g/dL (31.0-37.0); MEAN PLATELET VOLUME 9.7 fL (7.4-10.4); MONOCYTES 9.4 % (2-11); NEUTROPHILS 72.9 % (40-80); PLATELET COUNT 414 10x3/uL (130-400); RBC 2.37 10x6/uL (4.20-6.10); RDW 19.4 % (11.5-14.5); WBC 7.8 10x3/uL (4.8-10.8)
[2017-12-23 06:26] LABS: MCV 113.5 fL (80.0-100.0)
[2017-12-23 06:28] LABS: ALKALINE PHOSPHATASE 69 U/L (46-116); ALT (SGPT) 5 U/L (10-68); BILIRUBIN - TOTAL 0.89 mg/dL (0.2-1.3); CALC OSMOLALITY 277 mosm/kg (275-300); CALCIUM 8.1 mg/dL (8.5-10.1); CARBON DIOXIDE 26.7 mmol/L (21.0-32.0); CHLORIDE - SERUM 109 mmol/L (98-107); CREATININE - SERUM 0.9 mg/dL (0.6-1.3); GLUCOSE 93 mg/dL (74-106); POTASSIUM - SERUM 3.5 mmol/L (3.5-5.1); PROTEIN - SERUM 6.9 g/dL (6.4-8.2); SODIUM 141 mmol/L (136-145); UREA NITROGEN 5 mg/dL (7-18); eGFR NON AFRICAN AMERICAN 90 mL/min (90-120)
[2017-12-23 21:23] VITALS: BP 115/80
[2017-12-24 05:25] VITALS: BP 152/102
[2017-12-24 06:08] LABS: BASOPHILS 0.5 % (0-2); EOSINOPHILS 1.6 % (0-7); HEMATOCRIT 28.3 % (42.0-54.0); HEMOGLOBIN 8.7 g/dL (13.5-17.5); IMMATURE GRANULOCYTES 1.1 % (0-5); LYMPHOCYTES 15.5 % (15-50); MCH 35.2 pg (26.0-34.0); MCHC 30.7 g/dL (31.0-37.0); MCV 114.6 fL (80.0-100.0); MEAN PLATELET VOLUME 9.3 fL (7.4-10.4); MONOCYTES 11.7 % (2-11); NEUTROPHILS 69.6 % (40-80); PLATELET COUNT 364 10x3/uL (130-400); RBC 2.47 10x6/uL (4.20-6.10); RDW 18.9 % (11.5-14.5); WBC 6.2 10x3/uL (4.8-10.8)
[2017-12-24 06:27] LABS: ALKALINE PHOSPHATASE 75 U/L (46-116); BILIRUBIN - TOTAL 0.89 mg/dL (0.2-1.3); CALC OSMOLALITY 280 mosm/kg (275-300); CALCIUM 7.9 mg/dL (8.5-10.1); CARBON DIOXIDE 29.3 mmol/L (21.0-32.0); CHLORIDE - SERUM 108 mmol/L (98-107); GLUCOSE 98 mg/dL (74-106); POTASSIUM - SERUM 3.5 mmol/L (3.5-5.1); PROTEIN - SERUM 6.8 g/dL (6.4-8.2); SODIUM 142 mmol/L (136-145); UREA NITROGEN 6 mg/dL (7-18); eGFR NON AFRICAN AMERICAN 80 mL/min (90-120)
[2017-12-24 06:29] LABS: ALT (SGPT) 6 U/L (10-68)
[2017-12-24 08:27] VITALS: BP 147/100
[2017-12-24 20:00] VITALS: BP 137/77
[2017-12-25] VITALS: BP 137/83
[2017-12-25 04:00] VITALS: BP 142/91
[2017-12-25 05:52] LABS: BASOPHILS 0.4 % (0-2); EOSINOPHILS 1.7 % (0-7); HEMATOCRIT 27.1 % (42.0-54.0); HEMOGLOBIN 8.4 g/dL (13.5-17.5); IMMATURE GRANULOCYTES 1.1 % (0-5); LYMPHOCYTES 18.3 % (15-50); MCV 112.9 fL (80.0-100.0); MEAN PLATELET VOLUME 9.6 fL (7.4-10.4); MONOCYTES 14.2 % (2-11); NEUTROPHILS 64.3 % (40-80); PLATELET COUNT 386 10x3/uL (130-400); RDW 18.4 % (11.5-14.5); WBC 5.4 10x3/uL (4.8-10.8)
[2017-12-25 06:18] LABS: ALBUMIN 2.1 g/dL (3.4-5.0); ALKALINE PHOSPHATASE 75 U/L (46-116); BILIRUBIN - TOTAL 0.96 mg/dL (0.2-1.3); CALC OSMOLALITY 281 mosm/kg (275-300); CALCIUM 8.3 mg/dL (8.5-10.1); CARBON DIOXIDE 32.7 mmol/L (21.0-32.0); CHLORIDE - SERUM 106 mmol/L (98-107); CREATININE - SERUM 0.9 mg/dL (0.6-1.3); GLUCOSE 98 mg/dL (74-106); POTASSIUM - SERUM 3.6 mmol/L (3.5-5.1); PROTEIN - SERUM 6.8 g/dL (6.4-8.2); SODIUM 143 mmol/L (136-145); UREA NITROGEN 5 mg/dL (7-18); eGFR NON AFRICAN AMERICAN 90 mL/min (90-120)
[2017-12-25 06:20] LABS: ALT (SGPT) 4 U/L (10-68)
[2017-12-25 08:12] VITALS: BP 161/91
[2017-12-25 16:10] VITALS: BP 150/76
[2017-12-25 20:00] VITALS: BP 149/78
[2017-12-26] VITALS: BP 155/86
[2017-12-26 05:30] LABS: BASOPHILS 0.4 % (0-2); EOSINOPHILS 1.6 % (0-7); HEMATOCRIT 29.5 % (42.0-54.0); HEMOGLOBIN 9.1 g/dL (13.5-17.5); IMMATURE GRANULOCYTES 0.7 % (0-5); LYMPHOCYTES 24.7 % (15-50); MCHC 30.8 g/dL (31.0-37.0); MCV 113.5 fL (80.0-100.0); MEAN PLATELET VOLUME 9.6 fL (7.4-10.4); MONOCYTES 12.7 % (2-11); NEUTROPHILS 59.9 % (40-80); PLATELET COUNT 355 10x3/uL (130-400); RDW 18.4 % (11.5-14.5); WBC 4.5 10x3/uL (4.8-10.8)
[2017-12-26 05:55] LABS: ALBUMIN 2.1 g/dL (3.4-5.0); ALKALINE PHOSPHATASE 77 U/L (46-116); BILIRUBIN - TOTAL 1.18 mg/dL (0.2-1.3); CALC OSMOLALITY 281 mosm/kg (275-300); CALCIUM 8.2 mg/dL (8.5-10.1); CARBON DIOXIDE 33.7 mmol/L (21.0-32.0); CHLORIDE - SERUM 104 mmol/L (98-107); CREATININE - SERUM 0.9 mg/dL (0.6-1.3); GLUCOSE 95 mg/dL (74-106); POTASSIUM - SERUM 3.1 mmol/L (3.5-5.1); SODIUM 143 mmol/L (136-145); UREA NITROGEN 4 mg/dL (7-18); eGFR NON AFRICAN AMERICAN 90 mL/min (90-120)
[2017-12-26 06:03] LABS: ALT (SGPT) 3 U/L (10-68)
[2017-12-26 07:21] VITALS: BP 150/81
[2017-12-26 08:32] VITALS: BP 160/86
[2017-12-26 12:10] VITALS: BP 157/84
[2017-12-26 17:13] VITALS: BP 162/88
[2017-12-26] MEDS ORDERED: ATROVENT 0.02%2.5 ML UPD (17:34)
[2017-12-26] MEDS ORDERED: LOVENOX40 MG/0.4 SC (17:34)
[2017-12-26] MEDS ORDERED: XOPENEX 0.0.63 MG/3 INH (17:34)
[2017-12-26] MEDS ORDERED: HYDROCODON-ACE1 EAC7 PO (17:35)
[2017-12-26] MEDS ORDERED: BETAPACE 80 MG80 MG PO (17:35)
[2017-12-26] MEDS ORDERED: HYDRALAZINE20 MG/ML IV (17:35)
[2017-12-26] MEDS ORDERED: PULMICORT0.5 MG/21 UPD (17:36)
[2017-12-26] MEDS ORDERED: MUCINEX DM ER1 EAC1 PO (17:36)
[2017-12-26] MEDS ORDERED: TESSALON PERLE100 MG PO (17:36)
== END 2017-12-26 22:00 | DRG 871 ==
LOC: D.ER 14:22 → D.EDHOLD 18:15 → D.M2 18:15 → D.MS 18:15 → D.ICU 18:15 → D.M2 12-14 15:10 → D.ICU 12-15 11:17 → D.MS 12-16 16:32 → D.SDCHOLD 12-18 14:14 → D.MS 12-18 14:16
PROVIDERS: Emergency Medicine; Family Medicine; Internal Medicine Nephrology; Internal Medicine Pulmonary Disease
DX: A41.9 Sepsis, unspecified organism (principal); J15.211 Pneumonia due to Methicillin susceptible Staphylococcus aureus; S32.038A Other fracture of third lumbar vertebra, initial encounter for closed fracture; N17.9 Acute kidney failure, unspecified; E87.1 Hypo-osmolality and hyponatremia; M80.88XA Other osteoporosis with current pathological fracture, vertebra(e), initial encounter for fracture; E87.2 Acidosis; F17.203 Nicotine dependence unspecified, with withdrawal; F10.239 Alcohol dependence with withdrawal, unspecified; S36.899A Unspecified injury of other intra-abdominal organs, initial encounter; I12.9 Hypertensive chronic kidney disease with stage 1 through stage 4 chronic kidney disease, or unspecified chronic kidney disease; N18.3 Chronic kidney disease, stage 3 (moderate); J44.9 Chronic obstructive pulmonary disease, unspecified; K21.9 Gastro-esophageal reflux disease without esophagitis; E87.5 Hyperkalemia; M10.9 Gout, unspecified; E55.9 Vitamin D deficiency, unspecified; F10.20 Alcohol dependence, uncomplicated; D50.9 Iron deficiency anemia, unspecified; H91.90 Unspecified hearing loss, unspecified ear; I48.91 Unspecified atrial fibrillation; D69.6 Thrombocytopenia, unspecified; E03.9 Hypothyroidism, unspecified; L40.9 Psoriasis, unspecified; D69.59 Other secondary thrombocytopenia; T79.6XXA Traumatic ischemia of muscle, initial encounter

== ENCOUNTER 2017-12-26 21:10 | Inpatient (IN) | payer MEDICARE, BC ==
[2017-12-27 06:24] LABS: BASOPHILS 0.5 % (0-2); EOSINOPHILS 2.1 % (0-7); HEMATOCRIT 28.6 % (42.0-54.0); HEMOGLOBIN 8.9 g/dL (13.5-17.5); IMMATURE GRANULOCYTES 0.7 % (0-5); LYMPHOCYTES 22.5 % (15-50); MCH 35.6 pg (26.0-34.0); MCHC 31.1 g/dL (31.0-37.0); MCV 114.4 fL (80.0-100.0); MEAN PLATELET VOLUME 9.4 fL (7.4-10.4); MONOCYTES 15.6 % (2-11); NEUTROPHILS 58.6 % (40-80); PLATELET COUNT 323 10x3/uL (130-400); RDW 18.3 % (11.5-14.5); WBC 4.4 10x3/uL (4.8-10.8)
[2017-12-27 06:59] LABS: CALCIUM 8.3 mg/dL (8.5-10.1); CARBON DIOXIDE 33.7 mmol/L (21.0-32.0); CHLORIDE - SERUM 105 mmol/L (98-107); CREATININE - SERUM 0.8 mg/dL (0.6-1.3); GLUCOSE 102 mg/dL (74-106); SODIUM 142 mmol/L (136-145); eGFR NON AFRICAN AMERICAN > 90 mL/min (90-120)
[2017-12-27 07:02] LABS: CALC OSMOLALITY 280 mosm/kg (275-300); POTASSIUM - SERUM 3.3 mmol/L (3.5-5.1); UREA NITROGEN 6 mg/dL (7-18)
[2017-12-29 06:15] LABS: CALC OSMOLALITY 274 mosm/kg (275-300); CALCIUM 8.2 mg/dL (8.5-10.1); CARBON DIOXIDE 32.7 mmol/L (21.0-32.0); CHLORIDE - SERUM 102 mmol/L (98-107); CREATININE - SERUM 0.9 mg/dL (0.6-1.3); GLUCOSE 102 mg/dL (74-106); POTASSIUM - SERUM 3.6 mmol/L (3.5-5.1); SODIUM 138 mmol/L (136-145); eGFR NON AFRICAN AMERICAN 90 mL/min (90-120)
[2017-12-29 06:16] LABS: UREA NITROGEN 9 mg/dL (7-18)
[2017-12-29 09:33] LABS: BASOPHILS 0.2 % (0-2); EOSINOPHILS 1.8 % (0-7); HEMATOCRIT 30.6 % (42.0-54.0); HEMOGLOBIN 9.4 g/dL (13.5-17.5); IMMATURE GRANULOCYTES 0.3 % (0-5); LYMPHOCYTES 22.2 % (15-50); MCH 34.9 pg (26.0-34.0); MCHC 30.7 g/dL (31.0-37.0); MCV 113.8 fL (80.0-100.0); MEAN PLATELET VOLUME 9.3 fL (7.4-10.4); MONOCYTES 10.7 % (2-11); NEUTROPHILS 64.8 % (40-80); PLATELET COUNT 272 10x3/uL (130-400); RBC 2.69 10x6/uL (4.20-6.10); RDW 17.1 % (11.5-14.5); WBC 6.1 10x3/uL (4.8-10.8)
[2017-12-30 08:09] LABS: FOLATE (FOLIC ACID) - SERUM 15.8 ng/mL (>3.0)
[2018-01-01 07:07] LABS: BASOPHILS 1.2 % (0-2); EOSINOPHILS 4.1 % (0-7); HEMATOCRIT 27.8 % (42.0-54.0); HEMOGLOBIN 8.8 g/dL (13.5-17.5); IMMATURE GRANULOCYTES 0.3 % (0-5); LYMPHOCYTES 30.4 % (15-50); MCH 35.6 pg (26.0-34.0); MCHC 31.7 g/dL (31.0-37.0); MCV 112.6 fL (80.0-100.0); MEAN PLATELET VOLUME 9.5 fL (7.4-10.4); MONOCYTES 19.1 % (2-11); NEUTROPHILS 44.9 % (40-80); PLATELET COUNT 248 10x3/uL (130-400); RBC 2.47 10x6/uL (4.20-6.10); RDW 16.5 % (11.5-14.5); WBC 3.5 10x3/uL (4.8-10.8)
[2018-01-01 07:36] LABS: CALC OSMOLALITY 276 mosm/kg (275-300); CALCIUM 8.2 mg/dL (8.5-10.1); CARBON DIOXIDE 35.2 mmol/L (21.0-32.0); CHLORIDE - SERUM 101 mmol/L (98-107); CREATININE - SERUM 0.8 mg/dL (0.6-1.3); GLUCOSE 93 mg/dL (74-106); POTASSIUM - SERUM 3.6 mmol/L (3.5-5.1); SODIUM 139 mmol/L (136-145); UREA NITROGEN 9 mg/dL (7-18); eGFR NON AFRICAN AMERICAN > 90 mL/min (90-120)
[2018-01-02 06:30] LABS: BASOPHILS 0.6 % (0-2); IMMATURE GRANULOCYTES 0.3 % (0-5); LYMPHOCYTES 33.5 % (15-50); MCH 34.3 pg (26.0-34.0); MCHC 32.1 g/dL (31.0-37.0); MEAN PLATELET VOLUME 9.9 fL (7.4-10.4); MONOCYTES 15.2 % (2-11); NEUTROPHILS 45.4 % (40-80); PLATELET COUNT 246 10x3/uL (130-400); WBC 3.2 10x3/uL (4.8-10.8)
[2018-01-02 06:58] LABS: HEMOGLOBIN 10.6 g/dL (13.5-17.5); MCV 106.8 fL (80.0-100.0); RBC 3.09 10x6/uL (4.20-6.10)
[2018-01-02 07:04] LABS: CALC OSMOLALITY 277 mosm/kg (275-300); CALCIUM 8.2 mg/dL (8.5-10.1); CHLORIDE - SERUM 101 mmol/L (98-107); CREATININE - SERUM 0.9 mg/dL (0.6-1.3); GLUCOSE 93 mg/dL (74-106); POTASSIUM - SERUM 3.6 mmol/L (3.5-5.1); PRO BNP 2479 pg/mL (0-125); SODIUM 140 mmol/L (136-145); UREA NITROGEN 9 mg/dL (7-18); eGFR NON AFRICAN AMERICAN 90 mL/min (90-120)
[2018-01-03 10:04] LABS: BASOPHILS 0.5 % (0-2); EOSINOPHILS 5.3 % (0-7); HEMATOCRIT 35.6 % (42.0-54.0); HEMOGLOBIN 11.5 g/dL (13.5-17.5); LYMPHOCYTES 35.3 % (15-50); MCH 34.1 pg (26.0-34.0); MCHC 32.3 g/dL (31.0-37.0); MCV 105.6 fL (80.0-100.0); MEAN PLATELET VOLUME 9.7 fL (7.4-10.4); MONOCYTES 13.9 % (2-11); PLATELET COUNT 267 10x3/uL (130-400); RBC 3.37 10x6/uL (4.20-6.10); RDW 18.7 % (11.5-14.5); WBC 3.8 10x3/uL (4.8-10.8)
[2018-01-03 10:20] LABS: ALBUMIN 2.5 g/dL (3.4-5.0); ALKALINE PHOSPHATASE 99 U/L (46-116); ALT (SGPT) 9 U/L (10-68); BILIRUBIN - TOTAL 0.79 mg/dL (0.2-1.3); CALC OSMOLALITY 270 mosm/kg (275-300); CALCIUM 8.7 mg/dL (8.5-10.1); CARBON DIOXIDE 33.2 mmol/L (21.0-32.0); CHLORIDE - SERUM 99 mmol/L (98-107); CREATININE - SERUM 0.9 mg/dL (0.6-1.3); GLUCOSE 96 mg/dL (74-106); POTASSIUM - SERUM 3.3 mmol/L (3.5-5.1); PROTEIN - SERUM 8.3 g/dL (6.4-8.2); SODIUM 136 mmol/L (136-145); UREA NITROGEN 9 mg/dL (7-18); eGFR NON AFRICAN AMERICAN 90 mL/min (90-120)
[2018-01-08 06:14] LABS: BASOPHILS 0.3 % (0-2); HEMATOCRIT 39.1 % (42.0-54.0); HEMOGLOBIN 12.4 g/dL (13.5-17.5); IMMATURE GRANULOCYTES 0.2 % (0-5); LYMPHOCYTES 24.4 % (15-50); MCH 33.8 pg (26.0-34.0); MCHC 31.7 g/dL (31.0-37.0); MCV 106.5 fL (80.0-100.0); MEAN PLATELET VOLUME 9.8 fL (7.4-10.4); MONOCYTES 11.7 % (2-11); NEUTROPHILS 60.4 % (40-80); PLATELET COUNT 297 10x3/uL (130-400); RBC 3.67 10x6/uL (4.20-6.10); RDW 17.1 % (11.5-14.5); WBC 6.4 10x3/uL (4.8-10.8)
[2018-01-08 06:33] LABS: ANION GAP 13.8 mmol/L (8-16); CALCIUM 8.6 mg/dL (8.5-10.1); CARBON DIOXIDE 30.2 mmol/L (21.0-32.0); CREATININE - SERUM 1.2 mg/dL (0.6-1.3)
[2018-01-09 08:54] LABS: CKMB 0.7 U/L (0.0-3.6); CREATINE KINASE 46 UL (21-232); TROPONIN-I < 0.017 ng/mL (0.000-0.060)
[2018-01-09 09:07] LABS: ANION GAP 16.2 mmol/L (8-16); BILIRUBIN - TOTAL 1.73 mg/dL (0.2-1.3); CARBON DIOXIDE 25.8 mmol/L (21.0-32.0); CREATININE - SERUM 1.1 mg/dL (0.6-1.3); PROTEIN - SERUM 8.6 g/dL (6.4-8.2)
[2018-01-10 06:06] LABS: BASOPHILS 0.3 % (0-2); EOSINOPHILS 1.2 % (0-7); HEMATOCRIT 40.5 % (42.0-54.0); HEMOGLOBIN 12.8 g/dL (13.5-17.5); IMMATURE GRANULOCYTES 0.1 % (0-5); LYMPHOCYTES 24.8 % (15-50); MCHC 31.6 g/dL (31.0-37.0); MCV 107.7 fL (80.0-100.0); MEAN PLATELET VOLUME 10.6 fL (7.4-10.4); MONOCYTES 14.5 % (2-11); NEUTROPHILS 59.1 % (40-80); PLATELET COUNT 352 10x3/uL (130-400); RBC 3.76 10x6/uL (4.20-6.10); RDW 17.2 % (11.5-14.5); WBC 7.2 10x3/uL (4.8-10.8)
[2018-01-10 06:41] LABS: CALCIUM 9.3 mg/dL (8.5-10.1); CARBON DIOXIDE 25.5 mmol/L (21.0-32.0); CREATININE - SERUM 1.2 mg/dL (0.6-1.3)
[2018-01-10 07:05] LABS: ANION GAP 18.4 mmol/L (8-16); POTASSIUM - SERUM 3.9 mmol/L (3.5-5.1)
[2018-01-12 06:11] LABS: BASOPHILS 0.2 % (0-2); HEMATOCRIT 36.9 % (42.0-54.0); IMMATURE GRANULOCYTES 0.2 % (0-5); LYMPHOCYTES 22.2 % (15-50); MCH 34.3 pg (26.0-34.0); MCHC 32.5 g/dL (31.0-37.0); MCV 105.4 fL (80.0-100.0); MEAN PLATELET VOLUME 10.5 fL (7.4-10.4); MONOCYTES 11.9 % (2-11); NEUTROPHILS 64.5 % (40-80); PLATELET COUNT 377 10x3/uL (130-400); RDW 16.7 % (11.5-14.5); WBC 9.1 10x3/uL (4.8-10.8)
[2018-01-12 07:01] LABS: ANION GAP 14.3 mmol/L (8-16); CALCIUM 9.1 mg/dL (8.5-10.1); CARBON DIOXIDE 27.4 mmol/L (21.0-32.0); CREATININE - SERUM 1.1 mg/dL (0.6-1.3)
[2018-01-12 07:02] LABS: POTASSIUM - SERUM 4.7 mmol/L (3.5-5.1)
[2018-01-15 06:20] LABS: BASOPHILS 0.1 % (0-2); EOSINOPHILS 0.6 % (0-7); HEMATOCRIT 36.5 % (42.0-54.0); HEMOGLOBIN 12.1 g/dL (13.5-17.5); IMMATURE GRANULOCYTES 0.4 % (0-5); LYMPHOCYTES 17.9 % (15-50); MCH 34.2 pg (26.0-34.0); MCHC 33.2 g/dL (31.0-37.0); MCV 103.1 fL (80.0-100.0); MEAN PLATELET VOLUME 10.1 fL (7.4-10.4); MONOCYTES 11.4 % (2-11); NEUTROPHILS 69.6 % (40-80); PLATELET COUNT 394 10x3/uL (130-400); RBC 3.54 10x6/uL (4.20-6.10); RDW 15.9 % (11.5-14.5); WBC 9.6 10x3/uL (4.8-10.8)
[2018-01-15 06:34] LABS: CALC OSMOLALITY 271 mosm/kg (275-300); CALCIUM 8.8 mg/dL (8.5-10.1); CARBON DIOXIDE 23.8 mmol/L (21.0-32.0); CHLORIDE - SERUM 99 mmol/L (98-107); GLUCOSE 108 mg/dL (74-106); POTASSIUM - SERUM 3.9 mmol/L (3.5-5.1); SODIUM 134 mmol/L (136-145); UREA NITROGEN 21 mg/dL (7-18); eGFR NON AFRICAN AMERICAN 80 mL/min (90-120)
== END 2018-01-15 13:30 | DRG 70 ==
LOC: D.REHAB 21:10
PROVIDERS: Emergency Medicine
DX: G93.41 Metabolic encephalopathy (principal); K85.90 Acute pancreatitis without necrosis or infection, unspecified; N17.9 Acute kidney failure, unspecified; J90 Pleural effusion, not elsewhere classified; E87.1 Hypo-osmolality and hyponatremia; F17.203 Nicotine dependence unspecified, with withdrawal; R78.81 Bacteremia; D62 Acute posthemorrhagic anemia; J98.11 Atelectasis; R13.12 Dysphagia, oropharyngeal phase; I12.9 Hypertensive chronic kidney disease with stage 1 through stage 4 chronic kidney disease, or unspecified chronic kidney disease; F10.20 Alcohol dependence, uncomplicated; R06.03 Acute respiratory distress; B95.61 Methicillin susceptible Staphylococcus aureus infection as the cause of diseases classified elsewhere; E87.6 Hypokalemia; K21.9 Gastro-esophageal reflux disease without esophagitis; M10.9 Gout, unspecified; E55.9 Vitamin D deficiency, unspecified; E03.9 Hypothyroidism, unspecified; J44.9 Chronic obstructive pulmonary disease, unspecified; N18.3 Chronic kidney disease, stage 3 (moderate); S22.089D Unspecified fracture of T11-T12 vertebra, subsequent encounter for fracture with routine healing; S32.019D Unspecified fracture of first lumbar vertebra, subsequent encounter for fracture with routine healing; W19.XXXD Unspecified fall, subsequent encounter; R53.81 Other malaise

== ENCOUNTER 2018-02-05 11:19 | Inpatient (IN) | payer MEDICARE, BC ==
[~2018-02-05] VITALS: Ht 177.8 cm; Wt 86.4 kg
[~2018-02-05 11:19] MED LIST changes: +ATROVENT 0.02%2.5 ML UPD; +BETAPACE 120 M120 MG PO; +BETAPACE 80 MG80 MG PO; +Duragesic TRANSDERM; +HYDRALAZINE HCL25 MG PO; +HYDRALAZINE20 MG/ML IV; +HYDROCODON-ACE1 EAC7 PO; +LEVOXYL150 MCG PO; +LOVENOX40 MG/0.4 SC; +MUCINEX DM ER1 EAC1 PO; +PULMICORT0.5 MG/21 UPD; +TESSALON PERLE100 MG PO; +VITAMIN D250000 UNIT PO; +XOPENEX 0.0.63 MG/3 INH
[2018-02-05 11:46] LABS: BASOPHILS 0.1 % (0-2); EOSINOPHILS 1.1 % (0-7); HEMATOCRIT 34.1 % (42.0-54.0); HEMOGLOBIN 11.6 g/dL (13.5-17.5); IMMATURE GRANULOCYTES 0.5 % (0-5); LYMPHOCYTES 13.8 % (15-50); MCV 97.2 fL (80.0-100.0); MEAN PLATELET VOLUME 9.9 fL (7.4-10.4); MONOCYTES 10.7 % (2-11); NEUTROPHILS 73.8 % (40-80); PLATELET COUNT 378 10x3/uL (130-400); RBC 3.51 10x6/uL (4.20-6.10); RDW 15.7 % (11.5-14.5); WBC 14.4 10x3/uL (4.8-10.8)
[2018-02-05 11:58] LABS: APTT 34.5 SECONDS (22.8-39.4); INR 1.35 (0.85-1.17); PROTIME 16.1 SECONDS (11.6-15.0)
[2018-02-05 11:59] LABS: ALBUMIN 1.9 g/dL (3.4-5.0); ALKALINE PHOSPHATASE 286 U/L (46-116); ALT (SGPT) 41 U/L (10-68); BILIRUBIN - TOTAL 0.68 mg/dL (0.2-1.3); CALC OSMOLALITY 281 mosm/kg (275-300); CALCIUM 9.6 mg/dL (8.5-10.1); CARBON DIOXIDE 22.2 mmol/L (21.0-32.0); CHLORIDE - SERUM 90 mmol/L (98-107); CREATININE - SERUM 4.7 mg/dL (0.6-1.3); GLUCOSE 121 mg/dL (74-106); PROTEIN - SERUM 9.1 g/dL (6.4-8.2); SODIUM 126 mmol/L (136-145); UREA NITROGEN 90 mg/dL (7-18); eGFR NON AFRICAN AMERICAN 13 mL/min (90-120)
[2018-02-05 12:10] LABS: CKMB 0.1 U/L (0.0-3.6); CREATINE KINASE 32 UL (21-232); PRO BNP 2177 pg/mL (0-125)
[2018-02-05 12:11] LABS: TROPONIN-I < 0.017 ng/mL (0.000-0.060)
--- NOTE | 2018-02-05 13:15 | NUR ---
PT LAYING IN BED. RESPIRATIONS ARE EVEN AND UNLABORED. NO DISTRESS NOTED AT THIS TIME. COLOR WNL FOR RACE. FAMILY MEMBERS AT BEDSIDE. WILL CONTINUE TO MONITOR. PAGED RT FOR BREATHING TX.
[2018-02-05 15:26] VITALS: BP 119/80
--- NOTE | 2018-02-05 15:32 | NUR ---
PT TRANSPORTED TO CT AT THIS TIME VIA STRETCHER.
--- NOTE | 2018-02-05 16:07 | NUR ---
PT LAYING IN BED RESPIRATIONS ARE EVEN AND UNLABORED. NO DISTRESS NOTED AT THIS TIME. VSS. FAMILY AT BEDSIDE. IV PATENT AND INFUSING MERREM AT THIS TIME. WILL CONTINUE TO MONITOR.
[2018-02-05 16:09] VITALS: BP 123/81
--- NOTE | 2018-02-05 16:57 | NUR ---
merrem stopped at 1657
--- NOTE | 2018-02-05 17:27 | NUR ---
ATTEMPTED TO CALL REPORT. UNABLE TO TAKE REPORT AT THIS TIME
--- NOTE | 2018-02-05 18:18 | NUR ---
TRANSFERED FRO ER BY STRETCHER. CALL LIGHT IN REACH. WILL CONT. PLAN OF CARE.
[2018-02-05] MEDS ORDERED: CHRONULAC30 ML PO (18:36)
[2018-02-05] MEDS ORDERED: ZOLOFT25 MG PO (18:39)
[2018-02-05] MEDS ORDERED: ALDACTONE25 MG PO (18:40)
[2018-02-05] MEDS ORDERED: COLACE100 MG PO (18:41)
--- NOTE | 2018-02-05 19:30 | NUR ---
RECEIVED REPORT, WILL ASSUME CARE OF PT, FAMILY AT BEDSIDE, BED IS LOW, SRX2, CALL LIGHT IN REACH, WILL CONTINUE PLAN OF CARE
[2018-02-05 21:39] VITALS: BP 108/74
[2018-02-06] VITALS: BP 107/63
--- NOTE | 2018-02-06 01:45 | NUR ---
PT PULLED IV OUT, SEEMS VERY CONFUSED AT THIS TIME, WILL CONTINUE TO MONITOR
[2018-02-06 04:00] VITALS: BP 121/79
--- NOTE | 2018-02-06 07:15 | NUR ---
REPORT RECIEVED FROM INVESTOR RELATIONS DIRECTOR. PATIENT IS LAYING IN BED WITH EYES CLOSED AND BREATHING EVENLY. VITAL SIGNS ARE GOOD AND PATIENT IS STABLE. WILL CONTINUE TO MONITOR.
[2018-02-06 07:36] VITALS: BP 119/79
--- NOTE | 2018-02-06 09:08 | NUR ---
Wound care: There is a 6cm x 4cm ruptured blister on pt's left heel. The wound bed is red and there is no odor. Serous drainage is noted. Right buttock has a 2cm x 1cm deep tissue injury. Gluteal cleft is red with excoriation. Recommend: Covering left heel with white bordered gauze after cleaning daily Bottom- use calmoseptine cream and leave open to air Turn every 2 hours while in bed Bridge heels Wound care will continue monitoring.
--- NOTE | 2018-02-06 10:59 | NUR ---
PATIENT LAYING IN BED ON BACK. PATIENT SLEEPING BUT AROUSES EASILY TO VOICE. ALERT BUT CONFUSED SPEECH. IS ORIENTED TO NAME AND . WILL CONTINUE WITH PLAN OF CARE.
[2018-02-06 11:12] VITALS: BP 145/84
--- NOTE | 2018-02-06 13:30 | NUR ---
PATIENT IS URINATING SMALL AMOUNTS FREQUENTLY AND COMPLAINS OF BACK PAIN. URINARY STRAIGHT CATH PERFORMED. 1600 CC'S OF DARKGOLD/MAHSA URINE. CALLED [facility] AND RECIEVED NEW ORDER FOR WESTON CATH PLACEMENT. WESTON PLACED AND PATIENT TOLERATED WELL. URINE SPECIMEN SENT TO LAB FOR UA AND CULTURE.
[2018-02-06 14:10] LABS: APPEARANCE CLEAR (CLEAR); BILIRUBIN NEGATIVE (NEGATIVE); COLOR YELLOW (YELLOW); GLUCOSE NEGATIVE (NEGATIVE); KETONE NEGATIVE (NEGATIVE); NITRITE NEGATIVE (NEGATIVE); PROTEIN NEGATIVE (NEGATIVE); SPECIFIC GRAVITY 1.015 (1.005-1.020); UROBILINOGEN NORMAL (NORMAL); WHITE CELLS - URINE NSEEN /hpf (0-5)
[2018-02-06 14:11] LABS: EPITHELIAL CELLS NSEEN /hpf (0-5); RED CELLS - URINE OCC /hpf (0-5)
[2018-02-06 15:13] VITALS: BP 119/81
--- NOTE | 2018-02-06 19:40 | NUR ---
PATIENT IN BED WITH FAMILY AT BEDSIDE. LEFT HEAL WITH DRESSING CDI. ON BACK DID NOT RESPOND TO ASSMENT OF MOVEMENT OF FEET.
[2018-02-06 20:00] VITALS: BP 126/76
--- NOTE | 2018-02-06 22:02 | NUR ---
DRESSING CHANGED TO LEFT HEAL. IV 22 G TO RIGHT FR WITH ONE ATEMPT.
[2018-02-07 00:55] VITALS: BP 140/82
[2018-02-07 04:00] VITALS: BP 132/74
--- NOTE | 2018-02-07 07:15 | NUR ---
PATIENT LAYING IN BED WITH EYES CLOSED AND BREATHING EVENLY. SR UP X 2 BED IN LOW POSITION AND CALL LIGHT IN REACH. WILL CONTINUE TO MONITOR .
[2018-02-07 07:32] VITALS: BP 118/74
--- NOTE | 2018-02-07 09:30 | NUR ---
PATIENT AWAKE. NOT ORIENTED X 3. WHEN INQUIRING ABOUT PAIN, PATIENT STATES THAT BACK HURTS. MEDICATED WITH NORCO 5/325MG. PATIENT DENIES ANY OTHER NEEDS. SR UP X 2 BED IN LOW POSITION AND CALL LIGHT IN REACH. WILL CONTINUE TO MONITOR.
[2018-02-07 11:30] VITALS: BP 122/77
[2018-02-07 12:16] VITALS: Ht 177.8 cm; Wt 86.4 kg
--- NOTE | 2018-02-07 12:50 | NUR ---
REPOSITIONED FOR COMFORT. PATIENT IS STABLE AND UNCHANGED. PATIENT DENIES ANY NEEDS OR PAIN. DTR AT BEDSIDE.WILL CONTINUE TO MONITOR
[2018-02-07 13:12] LABS: BASOPHILS 0.3 % (0-2); EOSINOPHILS 4.8 % (0-7); HEMATOCRIT 33.6 % (42.0-54.0); HEMOGLOBIN 11.3 g/dL (13.5-17.5); IMMATURE GRANULOCYTES 0.9 % (0-5); LYMPHOCYTES 16.2 % (15-50); MCH 32.7 pg (26.0-34.0); MCHC 33.6 g/dL (31.0-37.0); MCV 97.1 fL (80.0-100.0); MEAN PLATELET VOLUME 9.9 fL (7.4-10.4); NEUTROPHILS 66.8 % (40-80); PLATELET COUNT 381 10x3/uL (130-400); RBC 3.46 10x6/uL (4.20-6.10); RDW 15.7 % (11.5-14.5); WBC 8.6 10x3/uL (4.8-10.8)
[2018-02-07 13:15] LABS: ALBUMIN 1.9 g/dL (3.4-5.0); ANION GAP 19.9 mmol/L (8-16); BILIRUBIN - TOTAL 0.45 mg/dL (0.2-1.3); CALCIUM 8.7 mg/dL (8.5-10.1); CARBON DIOXIDE 21.4 mmol/L (21.0-32.0); CREATININE - SERUM 3.5 mg/dL (0.6-1.3); POTASSIUM - SERUM 4.3 mmol/L (3.5-5.1); PROTEIN - SERUM 7.7 g/dL (6.4-8.2)
[2018-02-07 15:01] VITALS: BP 120/73
--- NOTE | 2018-02-07 15:42 | MORECARE ---
CASE MANAGEMENT DISCHARGE SUMMARY PATIENT: EYAL LOGAN UNIT: [id number] ADM DATE: 02/05/18 AGE: 67 : 52 SEX: M ROOM/BED: D.2113 AUTHOR: DILIA MOORE PHYSICIAN: REFERRING PHYSICIAN: ADARSH HOLLIDAY MD DATE OF SERVICE: 02/07/18 Discharge Plan Patient Name: [facility]YAL LOGAN [facility] [facility] 1950 Planned Disposition: Senior Living Facility Anticipated Discharge Date: Discharge Date: Expected LOS: Initial Reviewer: [email or web address] Initial Review Date: 02/07/2018 Generated: 02/07/18 4:42 pm Patient Name: EYAL LOGAN Page [id number] at 1542 All edits/amendments must be made on the electronic document DICTATION DATE: 02/07/18 154 BREAKDOWN MAN: WIL 02/07/18 1542 RPT#: [id number] DC DATE: STATUS: ADM IN [facility] [address] [place] [address] END OF REPORT
--- NOTE | 2018-02-07 15:54 | MORECARE ---
CASE MANAGEMENT DISCHARGE SUMMARY PATIENT: EYAL LOGAN UNIT: [id number] ADM DATE: 02/05/18 AGE: 67 : 52 SEX: M ROOM/BED: D.[facility]3 AUTHOR: DILIA MOORE PHYSICIAN: REFERRING PHYSICIAN: ADARSH HOLLIDAY MD DATE OF SERVICE: 02/07/18 Discharge Plan Patient Name: EYAL LOGAN [facility] [facility] 1950 Planned Disposition: Care Home Facility Anticipated Discharge Date: Discharge Date: Expected LOS: Initial Reviewer: [email or web address] Initial Review Date: 02/07/2018 Generated: 02/07/18 4:54 pm DCPIA - Discharge Planning Initial Assessment Updated by [email or web address]: Alex Wagner on 02/07/18 3:53 pm * Is the patient Alert and Oriented? No * How many steps to enter\exit or inside your home? * PCP DR. FLYNN * Pharmacy [facility] IN [place] * Preadmission Environment Care Home Facility * [facility] * ADLs Partial Dependent * Partial ADLs (Assistance needed) Ambulation Bathing Dressing Medication Management Toileting Transfers * Equipment Other * Other Equipment ALL MEDICAL EQUIPMENT PROVIDED BY [facility] * List name and contact numbers for known caregivers / representatives who currently or will assist patient after discharge: ILDEFONSO SEO, DTR, * Verbal permission to speak to the caregivers and representatives has been obtained from the patient. Yes * Community resources currently utilized None * Please name any agencies selected above. NONE * Additional services required to return to the preadmission environment? No * Can the patient safely return to the preadmission environment? Yes * Has this patient been hospitalized within the prior 30 days at any hospital? Yes Last DP export: 02/07/18 2:42 pm Patient Name: EYAL LOGAN Page 43753 at 6368 All edits/amendments must be made on the electronic document DICTATION DATE: 02/07/18 0343 UNDERWRITING CLERK: WIL 02/07/18 0411 RPT#: [id number] DC DATE: STATUS: ADM IN [facility] [address] [facility] [place] [address] END OF REPORT
--- NOTE | 2018-02-07 16:13 | MORECARE ---
CASE MANAGEMENT DISCHARGE SUMMARY PATIENT: EYAL LOGAN UNIT: [id number] ADM DATE: 02/05/18 AGE: 67 : 52 SEX: M ROOM/BED: D.5830 AUTHOR: TERESA,DOC PHYSICIAN: REFERRING PHYSICIAN: ADARSH HOLLIDAY MD DATE OF SERVICE: 02/07/18 Discharge Plan Patient Name: EYAL LOGAN Facility: [facility]:[place] : 1950 Planned Disposition: Longterm Facility Anticipated Discharge Date: Discharge Date: Expected LOS: Initial Reviewer: [email or web address] Initial Review Date: 02/07/2018 Generated: 02/07/18 5:13 pm Comments DCP- Discharge Planning Updated by [email or web address]: Alex Wagner on 02/07/18 3:[address] Patient Name: EYAL LOGAN Admission Status: ER Accout number: [id number] Admission Date: 02-05-2018 : 1950 Admission Diagnosis: Attending: ADARSH HOLLIDAY Current LOS: 2 Anticipated DC Date: Planned Disposition: Longterm Facility Primary Insurance: MEDICARE A & B PLANNED EXTERNAL PROVIDER: [facility], MEDICARE REHAB BED Discharge Planning Comments: CM MET WITH PT IN ROOM TO DISCUSS DISCHARGE PLANNING AND NEEDS. PT REPORTS LIVING AT HOME INDEPENDENTLY WITH HIS DAUGHTER. PT HAS A WALKER AT HOME WITH NO MEDICAL EQUIPMENT PROVIDER PREFERNCE. PT THINKS HE HAS HOME HEALTH FROM UNKNOWN COMPANY COMING TO DO THERAPY AT HOME. PT REPORTS HE WAS IN A [facility] BUT "THINKS" HE WENT HOME. CM DISCUSSED AVAILABILITY OF HOME HEALTH, REHAB SERVICES AND MEDICAL EQUIPMENT. PT THINKS HE WILL NEED MORE REHAB BEFORE HE GOES HOME. PT REPORTS HIS DAUGHTER WILL PICK HIM UP FOR DISCHARGE HOME. CM REVIEWED CHART WHICH INDICATES PT WAS IN REHAB AT [facility] SINCE 01-25-18 AND ADMITTED TO HOSPITAL FROM THE REHAB. CM ASKED PT ABOUT THIS APPROXIMATELY 1 HOUR SINCE CM'S FIRST ASSESSMENT; PT ASKED TO SEE THE "BOSS" AND COULD NOT TELL CM WHERE HE WAS AT, PT WAS NOT AWARE HE WAS IN THE HOSPITAL. CM SPOKE TO BEDSIDE NURSE WHO REPORTS PT SEEMS TO BE MORE CONFUSED THROUGH THE DAY. [facility] , SPOKE TO JOHN WHO VERIFIED THAT PT IS IN REHAB AND THEY WILL ACCEPT BACK FOR CONTINUE REHAB AT DISCHARGE. CM FAXED UPDATE TO [facility], . FOR DISCHARGE, FAX DISCHARGE INFORMATION TO [facility] AT [phone]; NURSE REPORT TO BE CALLED TO [facility] AT [phone]. [facility] TO ARRANGE VAN TRANSPORTATION. Coordinator Of Evaluation: Alex Wagner DCPIA - Discharge Planning Initial Assessment Updated by [email or web address]: Alex Wagner on 02/07/18 3:53 pm * Is the patient Alert and Oriented? No * How many steps to enter\\exit or inside your home? * PCP DR. FLYNN * Pharmacy [facility] IN [place] * Preadmission Environment Longterm Facility * Facility Name [facility] * ADLs Partial Dependent * Partial ADLs (Assistance needed) Ambulation Bathing Dressing Medication Management Toileting Transfers * Equipment Other * Other Equipment ALL MEDICAL EQUIPMENT PROVIDED [facility] * List name and contact numbers for known caregivers / representatives who currently or will assist patient after discharge: ILDEFONSO SEO DTR, * Verbal permission to speak to the caregivers and representatives has been obtained from the patient. Yes * Community resources currently utilized None * Please name any agencies selected above. NONE * Additional services required to return to the preadmission environment? No * Can the patient safely return to the preadmission environment? Yes * Has this patient been hospitalized within the prior 30 days at any hospital? Yes External Providers [facility] Next Contact Date: 02/08/2018 Service Request Date: Service Type: Resolution: Reviewer: Comments: Last DP export: 02/07/18 2:54 pm Patient Name: EYAL LOGAN Page [phone] at 1613 All edits/amendments must be made on the electronic document DICTATION DATE: 02/07/181611 FREIGHT UNLOADER: WIL 02/07/181611 RPT#: [id number] ID DATE: STATUS: ADM IN [facility] [address] [place] [address] END OF REPORT
--- NOTE | 2018-02-07 16:27 | MORECARE ---
CASE MANAGEMENT DISCHARGE SUMMARY PATIENT: EYAL LOGAN UNIT: [id number] ADM DATE: 02/05/18 AGE: 67 : 54 SEX: M ROOM/BED: D.9710 AUTHOR: TERESA,DOC PHYSICIAN: REFERRING PHYSICIAN: ADARSH HOLLIDAY MD DATE OF SERVICE: 02/07/18 Discharge Plan Patient Name: EYAL LOGAN Facility: [facility]:[employer] : 1950 Planned Disposition: Care Home Facility Anticipated Discharge Date: Discharge Date: Expected LOS: Initial Reviewer: [id number] Initial Review Date: 02/07/2018 Generated: 02/07/18 5:27 pm Comments DCP- Discharge Planning Updated by [id number]: Alex Wagner on 02/07/18 3:[address] Patient Name: EYAL LOGAN Admission Status: ER Accout number: [id number] Admission Date: 02-05-2018 : 1950 Admission Diagnosis: Attending: ADARSH HOLLIDAY Current LOS: 2 Anticipated DC Date: Planned Disposition: Care Home Facility Primary Insurance: MEDICARE A & B PLANNED EXTERNAL PROVIDER: [facility], MEDICARE REHAB BED Discharge Planning Comments: CM RECEIVED ORDER FOR ASSISTING WITH MEDICAL POWER OF COMPANY MANAGER, MET WITH PT IN ROOM TO DISCUSS DISCHARGE PLANNING AND NEEDS. PT REPORTS LIVING AT HOME INDEPENDENTLY WITH HIS DAUGHTER. PT HAS A WALKER AT HOME WITH NO MEDICAL EQUIPMENT PROVIDER PREFERNCE. PT THINKS HE HAS HOME HEALTH FROM UNKNOWN COMPANY COMING TO DO THERAPY AT HOME. PT REPORTS HE WAS IN A SENIOR LIVING BUT "THINKS" HE WENT HOME. CM DISCUSSED AVAILABILITY OF HOME HEALTH, REHAB SERVICES AND MEDICAL EQUIPMENT. PT THINKS HE WILL NEED MORE REHAB BEFORE HE GOES HOME. PT REPORTS HIS DAUGHTER WILL PICK HIM UP FOR DISCHARGE HOME. CM PROVIDED PT WITH MEDICAL POWER OF COMPANY MANAGER, INSTRUCTED ON HOW TO FILL IT OUT, NOT TO SIGN AND NOTIFY CM WHEN A NOTARY IS NEEDED TO WITNESS HIS SIGNATURE. PT REPORTS HE WILL GIVE THIS TO HIS DAUGHTER TO ASSIST. CM REVIEWED CHART WHICH INDICATES PT WAS IN REHAB AT [facility] SINCE 01-25-18 AND ADMITTED TO HOSPITAL FROM THE REHAB. CM ASKED PT ABOUT THIS APPROXIMATELY 1 HOUR SINCE CM'S FIRST ASSESSMENT; PT ASKED TO SEE THE "BOSS" AND COULD NOT TELL CM WHERE HE WAS AT, PT WAS NOT AWARE HE WAS IN THE HOSPITAL. CM SPOKE TO BEDSIDE NURSE WHO REPORTS PT SEEMS TO BE MORE CONFUSED THROUGH THE DAY. CM CALLED [facility], , SPOKE TO JOHN WHO VERIFIED THAT PT IS IN REHAB AND THEY WILL ACCEPT BACK FOR CONTINUE REHAB AT DISCHARGE. CM FAXED UPDATE TO [facility], . MEDICAL POWER OF COMPANY MANAGER PAPERWORK WILL HAVE TO WAIT UNTIL PT IS NOT CONFUSED FOR COMPLETION. ADVANCE DIRECTIVE COMPLETED BY PT FROM THE SENIOR LIVING IS LOCATED IN FRONT OF PT'S CHART. FOR DISCHARGE, FAX DISCHARGE INFORMATION TO [facility] AT [phone]; NURSE REPORT TO BE CALLED TO [facility] AT [phone]. [facility] TO [facility] V[facility] TRANSPORTATION. Card Stripper: Alex Wagner DCPIA - Discharge Planning Initial Assessment Updated by [id number]: Alex Wagner on 02/07/18 3:53 pm * Is the patient Alert and Oriented? No * How many steps to enter\\exit or inside your home? * PCP DR. FLYNN * Pharmacy [facility] * Preadmission Environment Care Home Facility * Facility Name [facility] * ADLs Partial Dependent * Partial ADLs (Assistance needed) Ambulation Bathing Dressing Medication Management Toileting Transfers * Equipment Other * Other Equipment ALL MEDICAL EQUIPMENT PROVIDED BY [facility] * List name and contact numbers for known caregivers / representatives who currently or will assist patient after discharge: ILDEFONSO SEO DTR, * Verbal permission to speak to the caregivers and representatives has been obtained from the patient. Yes * Community resources currently utilized None * Please name any agencies selected above. NONE * Additional services required to return to the preadmission environment? No * Can the patient safely return to the preadmission environment? Yes * Has this patient been hospitalized within the prior 30 days at any hospital? Yes Last DP export: 02/07/18 3:13 pm Patient Name: EYAL LOGAN Page 23859 at 4030 All edits/amendments must be made on the electronic document DICTATION DATE: 02/07/181626 MEDICAL CHARGE ENTRY SPECIALIST: WIL 02/07/181626 RPT#: [id number] DC DATE: STATUS: ADM IN [facility] [address] [place] [address] END OF REPORT
--- NOTE | 2018-02-07 19:30 | NUR ---
RESUME CARE.PT IN BED EYES CLOSED BREATH SOUNDS EVEN NO C/O OF PAIN OR DISTRESS AT THIS TIME CALL LIGHT IN REACH WILL CONT TO SPENCER
[2018-02-07 20:00] VITALS: BP 126/72
--- NOTE | 2018-02-07 22:20 | NUR ---
NORCO GIVEN FOR PAIN TOLERATED WELL
[2018-02-08] VITALS: BP 149/87
[2018-02-08 04:00] VITALS: BP 103/69
--- NOTE | 2018-02-08 04:18 | NUR ---
NORCO GIVEN FOR PAIN TOLERATED WELL
[2018-02-08 06:00] LABS: BASOPHILS 0.6 % (0-2); EOSINOPHILS 5.2 % (0-7); HEMATOCRIT 33.7 % (42.0-54.0); HEMOGLOBIN 11.3 g/dL (13.5-17.5); LYMPHOCYTES 21.4 % (15-50); MCH 32.3 pg (26.0-34.0); MCHC 33.5 g/dL (31.0-37.0); MCV 96.3 fL (80.0-100.0); MEAN PLATELET VOLUME 9.7 fL (7.4-10.4); MONOCYTES 9.9 % (2-11); NEUTROPHILS 61.9 % (40-80); PLATELET COUNT 401 10x3/uL (130-400); RDW 15.6 % (11.5-14.5); WBC 6.7 10x3/uL (4.8-10.8)
[2018-02-08 06:21] LABS: ALBUMIN 1.8 g/dL (3.4-5.0); ANION GAP 19.4 mmol/L (8-16); BILIRUBIN - TOTAL 0.42 mg/dL (0.2-1.3); CARBON DIOXIDE 20.7 mmol/L (21.0-32.0); CREATININE - SERUM 2.7 mg/dL (0.6-1.3); POTASSIUM - SERUM 4.1 mmol/L (3.5-5.1); PROTEIN - SERUM 8.4 g/dL (6.4-8.2)
[2018-02-08 09:18] VITALS: BP 124/69
--- NOTE | 2018-02-08 10:56 | NUR ---
RESTING QUIETLY NAD NOTED
--- NOTE | 2018-02-08 11:24 | NUR ---
LAB CALLED AND STATED PT HAS GRAM POSITIVE COCCI AND NO ISOLATION IS NEEDED.
--- NOTE | 2018-02-08 12:30 | NUR ---
SIGNALS INTELLIGENCE ANALYST ASSISTED PT WITH LUNCH.
--- NOTE | 2018-02-08 14:45 | NUR ---
SPOKE WITH PT'S DAUGHTER AND SHE IS CONCERNED ABOUT PT STARTING LOVENOX BECAUSE IN DECEMBER WHEN HE CAME OFF FOUR OR FIVE DAYS AFTER HE BRUISED FROM THE MIDDLE OF HIS BACK TO HIS BUTT TO HIS HEELS HE WAS COMPLETELY BRUISED.
[2018-02-08 15:02] VITALS: BP 106/58
[2018-02-08 15:10] VITALS: BP 134/86
--- NOTE | 2018-02-08 16:21 | MORECARE ---
CASE MANAGEMENT DISCHARGE SUMMARY PATIENT: EYAL LOGAN UNIT: [id number] ADM DATE: 02/05/18 AGE: 67 : 52 SEX: M ROOM/BED: D.9530 AUTHOR: TERESA,DOC PHYSICIAN: REFERRING PHYSICIAN: ADARSH HOLLIDAY MD DATE OF SERVICE: 02/08/18 Discharge Plan Patient Name: EYAL LOGAN Facility: [facility]:[place] : 1950 Planned Disposition: [facility]cf Facility Anticipated Discharge Date: Discharge Date: Expected LOS: Initial Reviewer: [id number] Initial Review Date: 02/07/2018 Generated: 02/08/18 5:21 pm Comments DCP- Discharge Planning Updated by [id number]: Alex Wagner on 02/07/18 3:[address] Patient Name: EYAL LOGAN Admission Status: ER Accout number: [id number] Admission Date: 02-05-2018 : 1950 Admission Diagnosis: Attending: ADARSH HOLLIDAY Current LOS: 2 Anticipated DC Date: Planned Disposition: [facility] Facility Primary Insurance: MEDICARE A & B PLANNED EXTERNAL PROVIDER: [facility], MEDICARE REHAB BED Discharge Planning Comments: CM RECEIVED ORDER FOR ASSISTING WITH MEDICAL POWER OF TECHNICAL CONSULTANT, MET WITH PT IN ROOM TO DISCUSS DISCHARGE PLANNING AND NEEDS. PT REPORTS LIVING AT HOME INDEPENDENTLY WITH HIS DAUGHTER. PT HAS A WALKER AT HOME WITH NO MEDICAL EQUIPMENT PROVIDER PREFERNCE. PT THINKS HE HAS HOME HEALTH FROM UNKNOWN COMPANY COMING TO DO THERAPY AT HOME. PT REPORTS HE WAS IN A CORRECTION BUT "THINKS" HE WENT HOME. CM DISCUSSED AVAILABILITY OF HOME HEALTH, REHAB SERVICES AND MEDICAL EQUIPMENT. PT THINKS HE WILL NEED MORE REHAB BEFORE HE GOES HOME. PT REPORTS HIS DAUGHTER WILL PICK HIM UP FOR DISCHARGE HOME. CM PROVIDED PT WITH MEDICAL POWER OF TECHNICAL CONSULTANT, INSTRUCTED ON HOW TO FILL IT OUT, NOT TO SIGN AND NOTIFY CM WHEN A NOTARY IS NEEDED TO WITNESS HIS SIGNATURE. PT REPORTS HE WILL GIVE THIS TO HIS DAUGHTER TO ASSIST. CM REVIEWED CHART WHICH INDICATES PT WAS IN REHAB AT [facility] SINCE 01-25-18 AND ADMITTED TO HOSPITAL FROM THE REHAB. CM ASKED PT ABOUT THIS APPROXIMATELY 1 HOUR SINCE CM'S FIRST ASSESSMENT; PT ASKED TO SEE THE "BOSS" AND COULD NOT TELL CM WHERE HE WAS AT, PT WAS NOT AWARE HE WAS IN THE HOSPITAL. CM SPOKE TO BEDSIDE NURSE WHO REPORTS PT SEEMS TO BE MORE CONFUSED THROUGH THE DAY. CM CALLED [facility], , SPOKE TO JOHN WHO VERIFIED THAT PT IS IN REHAB AND THEY WILL ACCEPT BACK FOR CONTINUE REHAB AT DISCHARGE. CM FAXED UPDATE TO [facility], . MEDICAL POWER OF TECHNICAL CONSULTANT PAPERWORK WILL HAVE TO WAIT UNTIL PT IS NOT CONFUSED FOR COMPLETION. ADVANCE DIRECTIVE COMPLETED BY PT FROM THE CORRECTION IS LOCATED IN FRONT OF PT'S CHART. FOR DISCHARGE, FAX DISCHARGE INFORMATION TO [facility] AT [phone]; NURSE REPORT TO BE CALLED TO [facility] AT [phone]. [facility]. Export Freight Manager: Alex Wagner DCPIA - Discharge Planning Initial Assessment Updated by [id number]: Alex Wagner on 02/07/18 3:53 pm * Is the patient Alert and Oriented? No * How many steps to enter\\exit or inside your home? * PCP DR. FLYNN * Pharmacy [facility] [place] * Preadmission Environment [facility] Facility * Facility Name [facility] * ADLs Partial Dependent * Partial ADLs (Assistance needed) Ambulation Bathing Dressing Medication Management Toileting Transfers * Equipment Other * Other Equipment ALL MEDICAL EQUIPMENT PROVIDED BY [facility] * List name and contact numbers for known caregivers / representatives who currently or will assist patient after discharge: ILDEFONSO SEO DTR, * Verbal permission to speak to the caregivers and representatives has been obtained from the patient. Yes * Community resources currently utilized None * Please name any agencies selected above. NONE * Additional services required to return to the preadmission environment? No * Can the patient safely return to the preadmission environment? Yes * Has this patient been hospitalized within the prior 30 days at any hospital? Yes Last DP export: 02/07/18 3:27 pm Patient Name: EYAL LOGAN Page [phone] at 1621 All edits/amendments must be made on the electronic document DICTATION DATE: 02/08/181619 PRIVACY MANAGER: WIL 02/08/18 162 RPT#: [id number] DC DATE: STATUS: ADM IN [facility] [address] [place] [address] END OF REPORT
--- NOTE | 2018-02-08 16:35 | MORECARE ---
CASE MANAGEMENT DISCHARGE SUMMARY PATIENT: EYAL LOGAN UNIT: [id number] ADM DATE: 02/05/18 AGE: 67 : 52 SEX: M ROOM/BED: D.2113 AUTHOR: TERESA,DOC PHYSICIAN: REFERRING PHYSICIAN: ADARSH HOLLIDAY MD DATE OF SERVICE: 02/08/18 Discharge Plan Patient Name: EYAL LOGAN [facility] : 1950 Planned Disposition: Alf Facility Anticipated Discharge Date: Discharge Date: Expected LOS: Initial Reviewer: [email or web address] Initial Review Date: 02/07/2018 Generated: 02/08/18 5:35 pm Comments DCP- Discharge Planning Updated by [id number]: Alex Wagner on 02/08/18 3:[address] Patient Name: EYAL LOGAN Encounter No: [id number] : 1950 Primary Insurance: MEDICARE A & B Anticipated DC Date: Planned Disposition: Alf Facility External Planned Provider: [facility], MEDICARE REHAB BED DCP follow-up note: CM RECEIVED CALL FROM PT'S DAUGHTER, ILDEFONSO, . ILDEFONSO WOULD LIKE PT CONSIDERED FOR INPATIENT REHAB AT [place] AGAIN HE HAD GOOD CARE AND REHAB WHILE THERE BEFORE GOING TO [facility] TIME. CM EXPLAINED THAT THERE WERE ADMISSION FACTORS SUCH THE TREATING DOCTOR AGREEING THAT INPATIENT REHAB IS APPROPRIATE LEVEL OF CARE, ADMITTING DIAGNOSIS FOR REHAB, NEED FOR ROUNDING OF DOCTOR AND 24 HOUR NURSING CARE, THE PATIENTS ABILITY TO PARTICIATE IN THREE HOURS OF PROGRESSIVE THERAPY PER DAY WELL PT'S MENTAL STATUS. DAUGHTER REPORTS UNDERSTANDING AND INFORMED CM THAT IF PT DOES NOT QUALIFY FOR INPATIENT REHAB, PT WILL RETURN TO [facility] FOR CONTINUED REHAB. CM REVIEWED CHART, OBTAINED ORDER FOR PHYSICAL THERAPY EVALUATION. PT'S DAUGHTER WOULD LIKE PT CONSIDERED FOR INPATIENT REHAB AT [place], IF PT DOES NOT QUALIFY FOR INPATIENT REHAB, DAUGHTER'S PLAN IS TO RETURN PT TO [facility] FOR CONTINUED REHAB WHO WILL ACCEPT PT BACK. IF PT IS NOT APPROPRIATE OR ACCEPTED AT [facility] INPATIENT REHAB AND READY FOR DISCHARGE, PT CAN RETURN TO [facility] FOR CONTINUED REHAB SERVICES; FAX DISCHARGE INFORMATION TO [facility] AT [phone]; NURSE REPORT TO BE CALLED TO [facility] AT [phone]. [facility] TO ARRANGE VAN TRANSPORTATION. Emergency Medical Technician: Alex Wagner DCP- Discharge Planning Updated by [id number]: Alex Wagner on 02/07/18 3:[address] Patient Name: EYAL LOGAN Admission Status: ER Accout number: [id number] Admission Date: 02-05-2018 : 1950 Admission Diagnosis: Attending: ADARSH HOLLIDAY Current LOS: 2 Anticipated DC Date: Planned Disposition: Alf Facility Primary Insurance: MEDICARE A & B PLANNED EXTERNAL PROVIDER: [facility], MEDICARE REHAB BED Discharge Planning Comments: CM RECEIVED ORDER FOR ASSISTING WITH MEDICAL POWER OF QUALITY ASSURANCE ASSESSOR, MET WITH PT IN ROOM TO DISCUSS DISCHARGE PLANNING AND NEEDS. PT REPORTS LIVING AT HOME INDEPENDENTLY WITH HIS DAUGHTER. PT HAS A WALKER AT HOME WITH NO MEDICAL EQUIPMENT PROVIDER PREFERNCE. PT THINKS HE HAS HOME HEALTH FROM [employer] COMING TO DO THERAPY AT HOME. PT REPORTS HE WAS IN A INTERMEDIATE BUT "THINKS" HE WENT HOME. CM DISCUSSED AVAILABILITY OF HOME HEALTH, REHAB SERVICES AND MEDICAL EQUIPMENT. PT THINKS HE WILL NEED MORE REHAB BEFORE HE GOES HOME. PT REPORTS HIS DAUGHTER WILL PICK HIM UP FOR DISCHARGE HOME. CM PROVIDED PT WITH MEDICAL POWER OF QUALITY ASSURANCE ASSESSOR, INSTRUCTED ON HOW TO FILL IT OUT, NOT TO SIGN AND NOTIFY CM WHEN A NOTARY IS NEEDED TO WITNESS HIS SIGNATURE. PT REPORTS HE WILL GIVE THIS TO HIS DAUGHTER TO ASSIST. CM REVIEWED CHART WHICH INDICATES PT WAS IN REHAB AT [facility] SINCE 01-25-18 AND ADMITTED TO HOSPITAL FROM THE REHAB. CM ASKED PT ABOUT THIS APPROXIMATELY 1 HOUR SINCE CM'S FIRST ASSESSMENT; PT ASKED TO SEE THE "BOSS" AND COULD NOT TELL CM WHERE HE WAS AT, PT WAS NOT AWARE HE WAS IN THE HOSPITAL. CM SPOKE TO BEDSIDE NURSE WHO REPORTS PT SEEMS TO BE MORE CONFUSED THROUGH THE DAY. [facility], , SPOKE TO JOHN WHO VERIFIED THAT PT IS IN REHAB AND THEY WILL ACCEPT BACK FOR CONTINUE REHAB AT DISCHARGE. CM FAXED UPDATE TO [facility], . MEDICAL POWER OF QUALITY ASSURANCE ASSESSOR PAPERWORK WILL HAVE TO WAIT UNTIL PT IS NOT CONFUSED FOR COMPLETION. ADVANCE DIRECTIVE COMPLETED BY PT FROM THE INTERMEDIATE IS LOCATED IN FRONT OF PT'S CHART. FOR DISCHARGE, FAX DISCHARGE INFORMATION TO [facility] AT [phone]; NURSE REPORT TO BE CALLED TO [facility] AT [phone]. [facility] TO [facility]RANGE VAN TRANSPORTATION. Emergency Medical Technician: Alex Wagner DCPIA - Discharge Planning Initial Assessment Updated by [id number]: Alex Wagner on 02/07/18 3:53 pm * Is the patient Alert and Oriented? No * How many steps to enter\\exit or inside your home? * PCP DR. FLYNN * Pharmacy [facility] * Preadmission Environment Alf Facility * Facility Name [facility] * ADLs Partial Dependent * Partial ADLs (Assistance needed) Ambulation Bathing Dressing Medication Management Toileting Transfers * Equipment Other * Other Equipment ALL MEDICAL EQUIPMENT PROVIDED BY [facility] * List name and contact numbers for known caregivers / representatives who currently or will assist patient after discharge: ILDEFONSO SEO, R, * Verbal permission to speak to the caregivers and representatives has been obtained from the patient. Yes * Community resources currently utilized None * Please name any agencies selected above. NONE * Additional services required to return to the preadmission environment? No * Can the patient safely return to the preadmission environment? Yes * Has this patient been hospitalized within the prior 30 days at any hospital? Yes Last DP export: 02/08/18 3:21 pm Patient Name: EYAL LOGAN Page [phone] at 1638 All edits/amendments must be made on the electronic document DICTATION DATE: 02/08/18 163 CINEMA OR THEATRE MANAGER: WIL 02/08/18 163 RPT#: [id number] DC DATE: STATUS: ADM IN [facility] [address] [place] [address] END OF REPORT
--- NOTE | 2018-02-08 19:30 | NUR ---
RESUME CARE. PT IN BED ALERT/CONFUSED BREATH SOUNDS EVEN FAMILY AT BEDSIDE ASSISTING WITH DINNER NO C/O OF PAIN OR DISTRESS AT THIS TIME CALL LIGHT IN REACH WILL CONT TO SPENCER
[2018-02-08 20:00] VITALS: BP 123/73
[2018-02-09] VITALS: BP 127/78
--- NOTE | 2018-02-09 03:52 | NUR ---
IV RESITED RT FOREARM
[2018-02-09 04:00] VITALS: BP 125/71
[2018-02-09 06:18] LABS: EOSINOPHILS 5.2 % (0-7); HEMATOCRIT 34.8 % (42.0-54.0); HEMOGLOBIN 11.5 g/dL (13.5-17.5); IMMATURE GRANULOCYTES 1.4 % (0-5); LYMPHOCYTES 22.8 % (15-50); MCH 32.2 pg (26.0-34.0); MCV 97.5 fL (80.0-100.0); MEAN PLATELET VOLUME 9.8 fL (7.4-10.4); MONOCYTES 10.7 % (2-11); NEUTROPHILS 58.9 % (40-80); PLATELET COUNT 380 10x3/uL (130-400); RBC 3.57 10x6/uL (4.20-6.10); RDW 15.6 % (11.5-14.5); WBC 5.8 10x3/uL (4.8-10.8)
[2018-02-09 06:24] LABS: ALBUMIN 1.8 g/dL (3.4-5.0); ANION GAP 15.2 mmol/L (8-16); BILIRUBIN - TOTAL 0.41 mg/dL (0.2-1.3); CALCIUM 9.1 mg/dL (8.5-10.1); CARBON DIOXIDE 22.1 mmol/L (21.0-32.0); CREATININE - SERUM 2.1 mg/dL (0.6-1.3); POTASSIUM - SERUM 4.3 mmol/L (3.5-5.1); PROTEIN - SERUM 8.5 g/dL (6.4-8.2)
[2018-02-09 08:31] VITALS: BP 134/86
[2018-02-09 13:05] VITALS: BP 111/71
--- NOTE | 2018-02-09 14:05 | NUR ---
RESTING QUIETLY. FAMILY AT BEDSIDE.
--- NOTE | 2018-02-09 14:27 | NUR ---
NUTRITION F/U RENAL ADA DIET. 50% INTAKE BREAKFAST, NO LUNCH INTAKE. PT CURRENTLY SLEEPING. WILL CONTINUE TO PROVIDE DIET, MONITOR INTAKE. RD FOLLOWING
--- NOTE | 2018-02-09 19:30 | NUR ---
ALERT/AWAKE C/O BACK PAIN AND ASSISTANCE TO TURN ON HIS SIDE. IV IN R FA INTACT SL. SOME CHITINA NOTED. NO OTHER NEEDS VOICED. ORIENTED TO CALL LIGHT.
[2018-02-09 21:08] VITALS: BP 147/82
--- NOTE | 2018-02-10 00:13 | NUR ---
AWAKE. DENIES ANY NEEDS. TURNED TO RIGHT SIDE WITH PILLOW TO HIS BACK.
[2018-02-10 05:16] LABS: BASOPHILS 0.5 % (0-2); HEMATOCRIT 37.5 % (42.0-54.0); HEMOGLOBIN 12.4 g/dL (13.5-17.5); IMMATURE GRANULOCYTES 1.4 % (0-5); MCH 32.4 pg (26.0-34.0); MCHC 33.1 g/dL (31.0-37.0); MCV 97.9 fL (80.0-100.0); MEAN PLATELET VOLUME 9.4 fL (7.4-10.4); MONOCYTES 11.1 % (2-11); PLATELET COUNT 341 10x3/uL (130-400); RBC 3.83 10x6/uL (4.20-6.10); RDW 15.6 % (11.5-14.5); WBC 5.7 10x3/uL (4.8-10.8)
[2018-02-10 05:45] LABS: ALBUMIN 1.9 g/dL (3.4-5.0); BILIRUBIN - TOTAL 0.41 mg/dL (0.2-1.3); CALCIUM 9.1 mg/dL (8.5-10.1); CARBON DIOXIDE 21.7 mmol/L (21.0-32.0); CREATININE - SERUM 1.7 mg/dL (0.6-1.3); POTASSIUM - SERUM 4.7 mmol/L (3.5-5.1); PROTEIN - SERUM 8.8 g/dL (6.4-8.2)
--- NOTE | 2018-02-10 08:00 | NUR ---
PATIENT VERY CONFUSED. ORIENT TO SELF ONLY. BED ALARM ON. CALL LIGHT WITHIN REACH. WILL CONTINUE WITH PLAN OF CARE
[2018-02-10 09:01] VITALS: BP 149/100
--- NOTE | 2018-02-10 09:18 | NUR ---
PATIENT GIVEN PRN NORCO FOR PAIN. C/O ALL OVER GENERAL PAIN/DISC
--- NOTE | 2018-02-10 10:09 | NUR ---
CONSULT IN FOR DR OSORIO
--- NOTE | 2018-02-10 10:14 | NUR ---
RESTS IN BED WITH EYES CLOSED. CALL LIGHT IN REACH. WILL MONITOR NEEDS.
[2018-02-10 14:03] VITALS: BP 121/74
--- NOTE | 2018-02-10 14:59 | NUR ---
PRN PAIN MEDICATION GIVEN PER PATIENT REQUEST FOR BACK PAIN
[2018-02-10 17:44] VITALS: BP 163/92
--- NOTE | 2018-02-10 19:34 | NUR ---
RECIEVED LAYING IN BED WITH EYES CLOSED. EASILY AROUSES WITH VERBAL STIMULI. ORIENTED TO PERSON AND PLACE. IV TO RIGHT FA SL.. DENIES ANY NEEDS AT THIS TIME. WILL CONT. POC.
[2018-02-10 20:23] VITALS: BP 154/85
[2018-02-11] VITALS (7 sets, daily range): BP systolic 135–179; BP diastolic 81–97
--- NOTE | 2018-02-11 04:09 | NUR ---
RESTING IN BED WITH EYES OPEN. STATED "WHERE'S KALIN". ASKED WHO THAT WAS AND HE SAID "MY EX-". TOLD HIM IDID NOT KNOW WHERE SHE WAS. PUT HIS FOR FINGER OUT AND SAID HERE YOU CAN HAVE THIS". EXPLAINED I DID NOT NEED IT AT THIS TIME. EXPLAINED THAT IT IS 0400 AND HE SAID " OH. I THOUGHT IT WAS BREAKFAST TIME". WILL CONT. POC.
[2018-02-11 05:25] LABS: BASOPHILS 0.6 % (0-2); EOSINOPHILS 2.3 % (0-7); HEMATOCRIT 31.4 % (42.0-54.0); HEMOGLOBIN 10.1 g/dL (13.5-17.5); IMMATURE GRANULOCYTES 1.3 % (0-5); LYMPHOCYTES 34.6 % (15-50); MCH 31.8 pg (26.0-34.0); MCHC 32.2 g/dL (31.0-37.0); MCV 98.7 fL (80.0-100.0); MEAN PLATELET VOLUME 9.2 fL (7.4-10.4); MONOCYTES 9.9 % (2-11); NEUTROPHILS 51.3 % (40-80); PLATELET COUNT 274 10x3/uL (130-400); RBC 3.18 10x6/uL (4.20-6.10); RDW 15.4 % (11.5-14.5); WBC 4.7 10x3/uL (4.8-10.8)
[2018-02-11 05:45] LABS: BILIRUBIN - TOTAL 1.12 mg/dL (0.2-1.3); CARBON DIOXIDE 17.5 mmol/L (21.0-32.0); CREATININE - SERUM 1.4 mg/dL (0.6-1.3)
[2018-02-11 05:52] LABS: POTASSIUM - SERUM 3.5 mmol/L (3.5-5.1)
[2018-02-11 05:56] LABS: ALBUMIN 1.4 g/dL (3.4-5.0); PROTEIN - SERUM 6.3 g/dL (6.4-8.2)
[2018-02-11 05:57] LABS: CALCIUM 6.5 mg/dL (8.5-10.1)
--- NOTE | 2018-02-11 08:03 | NUR ---
PATIENT IS ALERT/ORIENT TO SELF ONLY. BED ALARM ON. CALL LIGHT WITHIN REACH. VOICES NO NEEDS AT THIS TIME. WILL CONTINUE WITH PLAN OF CARE
--- NOTE | 2018-02-11 08:04 | NUR ---
RESTS IN BED WITHOUT NEEDS VOICED. [place] INTACT. CALL LIGHT IN REACH. WILL CONT. PLAN OF CARE.
--- NOTE | 2018-02-11 09:00 | NUR ---
PATIENT IS A FEEDER. FEED BY THIS NURSE. PATIENT ATE ALL HIS EGGSS AND HAM. DRANK JUICE AND HALF OF HIS MILK
--- NOTE | 2018-02-11 14:51 | NUR ---
FAMILY IN ROOM VISITING WITH PATIENT. PATIENT REQUESTED PRN PAIN MEDICATION FOR BACK PAIN. GIVEN
--- NOTE | 2018-02-11 21:33 | NUR ---
CONTINUES TO BE CONFUSED. FORGOT HE HAD HIS UPDRAFT EARLIER AND REQUESTED ONE. ATTEMPTED TO EXPLAIN HE HAD HAD ONE AND HE STATED" I DON'T FORGET NOTHING". NO OTHER C/O VOICED.
[2018-02-12] VITALS: BP 155/86
[2018-02-12 04:00] VITALS: BP 162/89
[2018-02-12 05:44] LABS: BASOPHILS 0.6 % (0-2); EOSINOPHILS 3.8 % (0-7); HEMATOCRIT 37.1 % (42.0-54.0); HEMOGLOBIN 12.1 g/dL (13.5-17.5); IMMATURE GRANULOCYTES 0.9 % (0-5); LYMPHOCYTES 26.4 % (15-50); MCHC 32.6 g/dL (31.0-37.0); MCV 98.1 fL (80.0-100.0); MEAN PLATELET VOLUME 9.7 fL (7.4-10.4); MONOCYTES 10.6 % (2-11); NEUTROPHILS 57.7 % (40-80); PLATELET COUNT 325 10x3/uL (130-400); RBC 3.78 10x6/uL (4.20-6.10); RDW 15.6 % (11.5-14.5)
[2018-02-12 06:03] LABS: BILIRUBIN - TOTAL 0.4 mg/dL (0.2-1.3); CREATININE - SERUM 1.4 mg/dL (0.6-1.3)
[2018-02-12 06:24] LABS: ALBUMIN 2.1 g/dL (3.4-5.0); ANION GAP 13.5 mmol/L (8-16); CALCIUM 9.2 mg/dL (8.5-10.1); CARBON DIOXIDE 25.3 mmol/L (21.0-32.0); POTASSIUM - SERUM 4.8 mmol/L (3.5-5.1); PROTEIN - SERUM 8.6 g/dL (6.4-8.2)
[2018-02-12 06:34] LABS: WBC 6.8 10x3/uL (4.8-10.8)
[2018-02-12 08:37] VITALS: BP 144/82
--- NOTE | 2018-02-12 10:15 | NUR ---
WESTON CATH EMPTIED AND PATIENT STATES THAT HE IS AT HOME AND THAT WE NEED TO "UNLOAF THAT TRAILER". PATIENT IS CONFUSED. PATIENT IS ALERT TO PERSON ONLY. PATIENT TELLS ME THAT HE HAS NOT WALKED SINCE HE BROKE BOTH ANKLES TWO YEARS AGO. MOSHE MAT ALARM IS IN USE AND ON
[2018-02-12 11:56] VITALS: BP 143/58
--- NOTE | 2018-02-12 14:48 | NUR ---
SPOKE WITH CRISTO IN THE PHARMACY REGARDING THE LOVENOX INJECTION, STATES HE WILL BRING UP AN 80 MG DOSE FOR THIS PATIENT
[2018-02-12 15:20] VITALS: BP 133/96
--- NOTE | 2018-02-12 16:26 | NUR ---
ANOTHER STATLOCK PLACED TO RIGHT THIGH PATIENT TOOK HIS OFF. DATED.
--- NOTE | 2018-02-12 16:32 | NUR ---
spoke to rubin in the pharmacy at this time, informed him of the elevated vanc trough and he advised me to hold the dose due now and to restart tomorrow
[2018-02-12 18:08] LABS: SPE - A/G RATIO 0.4 (0.7-1.7); SPE - ALBUMIN 2.1 g/dL (2.9-4.4); SPE - ALPHA-1 GLOBULIN 0.4 g/dL (0.0-0.4); SPE - ALPHA-2 GLOBULIN 1.1 g/dL (0.4-1.0); SPE - BETA GLOBULIN 1.2 g/dL (0.7-1.3); SPE - GAMMA GLOBULIN 2.4 g/dL (0.4-1.8); SPE - M-SPIKE Not Observed g/dL (Not Observed); SPE - TOTAL PROTEIN 7.2 g/dL (6.0-8.5)
--- NOTE | 2018-02-12 19:00 | NUR ---
PT ALERT AND ORIENTED ONLY TO SELF. LUNGS CLEAR TO AUSCULTATION. PT ABDOMEN APPEARS DISTENDED. PT HAS WESTON CATHETER THAT IS DRAINING CLEAR YELLOW URINE. PT HAS LEFT FOOT DRESSING THAT IS CLEAN DRY AND INTACT. SCD'S ON. RIGHT HAND IV IS SALINE LOCKED AT THIS TIME. PT COMPLAINS OF PAIN AND RATES 9 WHEN ASKED. PT STATES THE PAIN IS "ALL OVER." PT IS ABLE TO LOCALIZE PAIN TO ABDOMEN. NO NO OTHER DISTRESS NOTED AT THIS TIME. WILL ADMINISTER PAIN MEDICINE WITH HS MEDICATIONS. CALL LIGHT IS IN REACH. FALL PRECAUTIONS ARE IN PLACE WITH YELLOW GOWN AND MOSHE ALARM ON.
[2018-02-12 20:00] VITALS: BP 129/78
--- NOTE | 2018-02-12 20:50 | NUR ---
PT TOLERATED HS MEDICATIONS WITH NO ISSUES.
--- NOTE | 2018-02-12 23:26 | NUR ---
IN CLASS SPECIAL EDUCATION TEACHER AT BEDSIDE TO OBTAIN VITALS, CALL LIGHT IN REACH. WILL CONTINUE WITH PLAN OF CARE.
[2018-02-13] VITALS: BP 136/93
--- NOTE | 2018-02-13 00:47 | NUR ---
PT HAD BOWEL MOVEMENT. BED CHANGED PERFORMED. PT TOLERATED WELL. PT STILL CONFUSED. ASKS TO MAKE PHONE CALLS ABOUT TRUCKS AND OTHER THINGS THAT DO NOT MAKE SENSE. PLEASANTLY CONFUSED.
[2018-02-13 04:00] VITALS: BP 139/90
[2018-02-13 05:34] LABS: BASOPHILS 0.2 % (0-2); EOSINOPHILS 1.7 % (0-7); HEMATOCRIT 35.5 % (42.0-54.0); HEMOGLOBIN 11.9 g/dL (13.5-17.5); IMMATURE GRANULOCYTES 0.5 % (0-5); LYMPHOCYTES 27.7 % (15-50); MCH 32.2 pg (26.0-34.0); MCHC 33.5 g/dL (31.0-37.0); MCV 96.2 fL (80.0-100.0); MEAN PLATELET VOLUME 9.3 fL (7.4-10.4); MONOCYTES 8.7 % (2-11); NEUTROPHILS 61.2 % (40-80); PLATELET COUNT 297 10x3/uL (130-400); RBC 3.69 10x6/uL (4.20-6.10); RDW 15.5 % (11.5-14.5); WBC 8.2 10x3/uL (4.8-10.8)
[2018-02-13 06:10] LABS: ANION GAP 15.5 mmol/L (8-16); BILIRUBIN - TOTAL 0.48 mg/dL (0.2-1.3); CALCIUM 8.6 mg/dL (8.5-10.1); CARBON DIOXIDE 20.5 mmol/L (21.0-32.0); CREATININE - SERUM 1.2 mg/dL (0.6-1.3); MAGNESIUM - SERUM 1.4 mg/dL (1.8-2.4); PROTEIN - SERUM 8.2 g/dL (6.4-8.2)
--- NOTE | 2018-02-13 06:37 | NUR ---
PT COUGHING WHEN ENTERING THE ROOM. PROVIDED PT WITH INCENTIVE SPIROMETER. INSTRUCTED PT ON HOW TO USE. PT RETURNED DEMONSTRATION.
[2018-02-13 08:19] VITALS: BP 112/67
--- NOTE | 2018-02-13 08:25 | NUR ---
I CALLED [facility] WITH DR RYAN FOR SOME MUCINEX TO HELP WITH PATIENT'S COUGH/CONGESTION WHICK SEEMS WORSE TODAY. AWAITING CALL BACK.
--- NOTE | 2018-02-13 08:38 | NUR ---
[facility] TO CALL BACK WITH NEW ORDERS.
--- NOTE | 2018-02-13 09:18 | NUR ---
CALL PLACED INTO [facility] FOR POSSIBLE LASIX FOR PATIENT TO HELP WITH BREATHING. AWAITING CALL BACK.
--- NOTE | 2018-02-13 10:01 | NUR ---
NO CALL BACK YET FROM [facility]. PAGED AGAIN.
--- NOTE | 2018-02-13 10:05 | NUR ---
THE PATIENT HAS DECLINED IN HIS LUNG SOUND, PREDICTIVE MAINTENANCE TECHNICIAN PAGED AGAIN AT THIS TIME. O2 97% ON ROOM AIR, HEART RATE 77
--- NOTE | 2018-02-13 10:07 | NUR ---
SPOKE WITH DR HELTON, NEW ORDERS RECEIVED.
--- NOTE | 2018-02-13 10:09 | NUR ---
THEODORE, PACK ROOM OPERATOR TO CALL RADIOLOGY FOR STAT PORTABLE CHEST XRAY.
--- NOTE | 2018-02-13 10:21 | NUR ---
HOLDING THE PATIENTS MEDICATIONS AT THIS TIME, DUE TO HIS DECLINING CONDITION. STAT XRAY, AND BREATHING TX DONE WELL IV LASIX PUSHED.
[2018-02-13 11:44] VITALS: BP 95/69
--- NOTE | 2018-02-13 11:49 | NUR ---
DR RYAN STOPPED BY THE PATIENTS ROOM AND WAS NOTIFIED OF THE PATIENTS LOWER BLOOD PRSSURE AND HEART RATE, SHE GAVE ORDER TO HOLD BOTH BETA BLOCKERS THIS MORNING. WILL CONT TO MONITOR
--- NOTE | 2018-02-13 12:11 | NUR ---
PATIENT RESTING COMFORTABLE IN HIGH FOWLERS POSITON. LUNG SOUNDS HAVE IMPROVED. PT FEELS CLAMY TO THE TOUCH, BLOOD SUGAR CHECKED, AND WNL (99). WILL CONT TO MONITOR CLOSELY
--- NOTE | 2018-02-13 13:39 | MORECARE ---
CASE MANAGEMENT DISCHARGE SUMMARY PATIENT: EYAL LOGAN UNIT: [id number] ADM DATE: 02/05/18 AGE: 67 : [birth year] SEX: M ROOM/BED: D.2113 AUTHOR: TERESA,DOC PHYSICIAN: REFERRING PHYSICIAN: ADARSH HOLLIDAY MD DATE OF SERVICE: 02/13/18 Discharge Plan Patient Name: [facility]YAL LOGAN [facility] [facility] 1950 Planned Disposition: Nursing Home Facility Anticipated Discharge Date: Discharge Date: Expected LOS: Initial Reviewer: [id number] Initial Review Date: 02/07/2018 Generated: 02/13/18 2:38 pm Comments DCP- Discharge Planning Updated by [id number]: Alex Wagner on 02/13/18 12:[address] Patient Name: EYAL LOGAN Encounter No: [id number] : 1950 Primary Insurance: MEDICARE A & B Anticipated DC Date: Planned Disposition: Nursing Home Facility External Planned Provider: [facility], MEDICARE REHAB BED DCP follow-up note: CM REVIEWED CHART, PT DOES NOT APPEAR TO BE PROGRESSING TO THE POINT THAT HE WILL BE APPROPRIATE FOR INPATIENT REHAB AND APPEARS TO BE APPROPRIATE FOR [facility] AT DISCHARGE. CM [facility] AT [phone] PT'S DAUGHTER WOULD LIKE PT CONSIDERED FOR INPATIENT REHAB AT [place], IF PT DOES NOT QUALIFY FOR INPATIENT REHAB, DAUGHTER'S PLAN IS TO RETURN PT TO [facility] FOR CONT[facility]UED REH[facility] WHO WILL ACCEPT PT BACK. IF PT IS NOT APPROPRIATE OR ACCEPTED AT [facility] INPATIENT REHAB AND READY FOR DISCHARGE, PT CAN RETURN TO [facility] FOR CONTINUED REHAB SERVICES; FAX DISCHARGE INFORMATION TO [facility] AT [phone]; NURSE REPORT TO BE CALLED TO [facility] AT [phone]. [facility]SP[facility]. Research Greenhouse Supervisor: Alex Wagner DCP- Discharge Planning Updated by [id number]: Alex Wagner on 02/08/18 3:[address] Patient Name: EYAL LOGAN Encounter No: [id number] : 1950 Primary Insurance: MEDICARE A & B Anticipated DC Date: Planned Disposition: Nursing Home Facility External Planned Provider: [facility], MEDICARE REHAB BED DCP follow-up note: CM RECEIVED CALL FROM PT'S DAUGHTER, ILDEFONSO, . ILDEFONSO WOULD LIKE PT CONSIDERED FOR INPATIENT REHAB AT [place] AGAIN HE HAD GOOD CARE AND REHAB WHILE THERE BEFORE GOING TO [facility] THIS LAST TIME. CM EXPLAINED THAT THERE WERE ADMISSION FACTORS SUCH THE TREATING DOCTOR AGREEING THAT INPATIENT REHAB IS APPROPRIATE LEVEL OF CARE, ADMITTING DIAGNOSIS FOR REHAB, NEED FOR ROUNDING OF DOCTOR AND 24 HOUR NURSING CARE, THE PATIENTS ABILITY TO PARTICIATE IN THREE HOURS OF PROGRESSIVE THERAPY PER DAY WELL PT'S MENTAL STATUS. DAUGHTER REPORTS UNDERSTANDING AND INFORMED CM THAT IF PT DOES NOT QUALIFY FOR INPATIENT REHAB, PT WILL RETURN TO [facility] FOR CONTINUED REHAB. CM REVIEWED CHART, OBTAINED ORDER FOR PHYSICAL THERAPY EVALUATION. PT'S DAUGHTER WOULD LIKE PT CONSIDERED FOR INPATIENT REHAB AT [place], IF PT DOES NOT QUALIFY FOR INPATIENT REHAB, DAUGHTER'S PLAN IS TO RETURN [facility] TO [facility] WHO WILL ACCEPT PT BACK. IF PT IS NOT APPROPRIATE OR ACCEPTED AT [facility] INPATIENT REHAB AND READY FOR DISCHARGE, PT CAN RETURN TO [facility] FOR CONTINUED REHAB SERVICES; FAX DISCHARGE INFORMATION TO [facility] AT [phone]; NURSE REPORT TO BE CALLED TO [facility] AT [phone]. [facility] TO ARRANGE VAN TRANSPORTATION. Research Greenhouse Supervisor: Alex Wagner DCP- Discharge Planning Updated by [id number]: Alex Wagner on 02/07/18 3:[address] Patient Name: EYAL LOGAN Admission Status: ER Accout number: [id number] Admission Date: 02-05-2018 : 1950 Admission Diagnosis: Attending: ADARSH HOLLIDAY Current LOS: 2 Anticipated DC Date: Planned Disposition: Nursing Home Facility Primary Insurance: MEDICARE A & B PLANNED EXTERNAL PROVIDER: [facility], MEDICARE REHAB BED Discharge Planning Comments: CM RECEIVED ORDER FOR ASSISTING WITH MEDICAL POWER OF GENETIC TECHNOLOGIST, MET WITH PT IN ROOM TO DISCUSS DISCHARGE PLANNING AND NEEDS. PT REPORTS LIVING AT HOME INDEPENDENTLY WITH HIS DAUGHTER. PT HAS A WALKER AT HOME WITH NO MEDICAL EQUIPMENT PROVIDER PREFERNCE. PT THINKS HE HAS HOME HEALTH FROM UNKNOWN COMPANY COMING TO DO THERAPY AT HOME. PT REPORTS HE WAS IN A SNF BUT "THINKS" HE WENT HOME. CM DISCUSSED AVAILABILITY OF HOME HEALTH, REHAB SERVICES AND MEDICAL EQUIPMENT. PT THINKS HE WILL NEED MORE REHAB BEFORE HE GOES HOME. PT REPORTS HIS DAUGHTER WILL PICK HIM UP FOR DISCHARGE HOME. CM PROVIDED PT WITH MEDICAL POWER OF GENETIC TECHNOLOGIST, INSTRUCTED ON HOW TO FILL IT OUT, NOT TO SIGN AND NOTIFY CM WHEN A NOTARY IS NEEDED TO WITNESS HIS SIGNATURE. PT REPORTS HE WILL GIVE THIS TO HIS DAUGHTER TO ASSIST. CM REVIEWED CHART WHICH INDICATES PT WAS IN REHAB AT [facility] SINCE 01-25-18 AND ADMITTED TO HOSPITAL FROM THE REHAB. CM ASKED PT ABOUT THIS APPROXIMATELY 1 HOUR SINCE CM'S FIRST ASSESSMENT; PT ASKED TO SEE THE "BOSS" AND COULD NOT TELL CM WHERE HE WAS AT, PT WAS NOT AWARE HE WAS IN THE HOSPITAL. CM SPOKE TO BEDSIDE NURSE WHO REPORTS PT SEEMS TO BE MORE CONFUSED THROUGH THE DAY. CM CALLED [facility], , SPOKE TO JOHN WHO VERIFIED THAT PT IS IN REHAB AND THEY WILL ACCEPT BACK FOR CONTINUE REHAB AT DISCHARGE. CM FAXED UPDATE TO [facility], . MEDICAL POWER OF GENETIC TECHNOLOGIST PAPERWORK WILL HAVE TO WAIT UNTIL PT IS NOT CONFUSED FOR COMPLETION. ADVANCE DIRECTIVE COMPLETED BY PT FROM THE SNF IS LOCATED IN FRONT OF PT'S CHART. FOR DISCHARGE, FAX DISCHARGE INFORMATION TO [facility] AT [phone]; NURSE REPORT TO BE CALLED TO [facility] AT [phone]. [facility] TO ARRANGE VAN TRANSPORTATION. Research Greenhouse Supervisor: Alex Wagner DCPIA - Discharge Planning Initial Assessment Updated by [id number]: Alex Wagner on 02/07/18 3:53 pm * Is the patient Alert and Oriented? No * How many steps to enter\\exit or inside your home? * PCP DR. FLYNN * [facility] [place] * Preadmission Environment Nursing Home Facility * Facility Name [facility] * ADLs Partial Dependent * Partial ADLs (Assistance needed) Ambulation Bathing Dressing Medication Management Toileting Transfers * Equipment Other * Other Equipment ALL MEDICAL EQUIPMENT PROVIDED BY [facility] * List name and contact numbers for known caregivers / representatives who currently or will assist patient after discharge: ILDEFONSO SEO DTKaterine, * Verbal permission to speak to the caregivers and representatives has been obtained from the patient. Yes * Community resources currently utilized None * Please name any agencies selected above. NONE * Additional services required to return to the preadmission environment? No * Can the patient safely return to the preadmission environment? Yes * Has this patient been hospitalized within the prior 30 days at any hospital? Yes Last DP export: 02/08/18 3:35 pm Patient Name: EYAL LOGAN Page [id number] at 1339 All edits/amendments must be made on the electronic document DICTATION DATE: 02/13/181337 IT AUDITOR: WIL 02/13/181337 RPT#: [id number] DC DATE: STATUS: ADM IN [facility] [address] [place] [address] END OF REPORT
--- NOTE | 2018-02-13 14:47 | NUR ---
PATIENT IS HAVING MORE URINE OUTPUT WITH WESTON CATH IS SHIFT PAST IV LASIX GIVEN THIS AM. STILL WITH CRACKLES HEARD WITHOUT STETHASCOPE BUT MUCH BETTER THAN THIS AM.
--- NOTE | 2018-02-13 15:16 | NUR ---
CHANGED THE PATIENTS DRESSING TO THE LEFT HEEL WITH THE WOUND CARE NURSE, NAI. CLEANED THE WOUND WITH NS, AND STERILE GAUZE, PAT DRY, APPLIED PETROLEUM GAUZE, COVERED WITH 4X4 GAUZE, WRAPPED FOOT WITH CAST PAD, THEN KERLIX SECURED WITH TAPE. PATIENT TOLERATED DRESSING CHANGE
--- NOTE | 2018-02-13 15:38 | NUR ---
Reassessment: Left heel has stage 2 pressure injury (ruptured blister) measuring 3.5cm x 5cm x 0.2cm. It bleeds easily. Recommend xeroform gauze to cover area, protected by 4x4s then wrapped with cast padding and kerlix. Also keep heels bridged. Right inner buttock has stage 2 - 0.2cm x 0.2cm x 0.1cm Left buttock stage 2 - 1.3cm x 1.6cm Calmoseptine cream is being applied to these areas and pt is being turned/repositioned every 2 hours. Wound care continues to monitor.
[2018-02-13 16:36] VITALS: BP 103/62
[2018-02-13 19:00] VITALS: BP 102/66
--- NOTE | 2018-02-13 19:40 | NUR ---
PT RESTING IN BED COMFORTABLY WITH EYES CLOSED. REPIRATIONS EVEN AND UNLABORED. BED LOW CALL LIGHT WITHIN REACH. WILL CONTINUE TO MONITOR.
[2018-02-14] VITALS: BP 125/79
[2018-02-14 04:00] VITALS: BP 99/65
[2018-02-14 05:49] LABS: BASOPHILS 0.4 % (0-2); EOSINOPHILS 2.1 % (0-7); HEMATOCRIT 32.7 % (42.0-54.0); HEMOGLOBIN 10.7 g/dL (13.5-17.5); IMMATURE GRANULOCYTES 0.5 % (0-5); LYMPHOCYTES 28.5 % (15-50); MCH 31.9 pg (26.0-34.0); MCHC 32.7 g/dL (31.0-37.0); MCV 97.6 fL (80.0-100.0); MEAN PLATELET VOLUME 9.7 fL (7.4-10.4); MONOCYTES 10.6 % (2-11); NEUTROPHILS 57.9 % (40-80); PLATELET COUNT 305 10x3/uL (130-400); RBC 3.35 10x6/uL (4.20-6.10); RDW 15.6 % (11.5-14.5); WBC 8.6 10x3/uL (4.8-10.8)
--- NOTE | 2018-02-14 06:00 | NUR ---
PT ALERT AND ORIENTED. RESPORATIONS EVEN AND UNLABORED. CHANGED PT BEDDING. PT COMPLAINS OF PAIN 09/15. PRN PAIN MEDS ADMINSTERED. BED LOW CALL LIGHT WITHIN REACH. WILL CONTINUE TO MONITOR.
[2018-02-14 06:13] LABS: ANION GAP 15.7 mmol/L (8-16); BILIRUBIN - TOTAL 0.54 mg/dL (0.2-1.3); CALCIUM 8.8 mg/dL (8.5-10.1); CARBON DIOXIDE 20.9 mmol/L (21.0-32.0); CREATININE - SERUM 1.2 mg/dL (0.6-1.3); MAGNESIUM - SERUM 1.6 mg/dL (1.8-2.4); POTASSIUM - SERUM 3.6 mmol/L (3.5-5.1); PROTEIN - SERUM 8.1 g/dL (6.4-8.2)
--- NOTE | 2018-02-14 07:31 | NUR ---
RESTING IN BED WITH EYES CLOSED. DSG TO LEFT FOOT INTACT. NO S/S OF DISTRESS OBSERVED.
--- NOTE | 2018-02-14 08:00 | NUR ---
AM ROUNDS COMPLETED. INTRODUCED MYSELF TO PT PRIMARY RN FOR TODAYS SHIFT. PT IS A&O SITTING UP IN BED RESTING QUIETLY EATING BREAKFAST. SHIFT ASSESSMENT COMPLETED. WILL CHECK ORDERS AND PROVIDE WITH AM MEDICATIONS AND CPOC.
[2018-02-14 08:25] VITALS: BP 152/74
--- NOTE | 2018-02-14 09:57 | NUR ---
DRSG CHANGE PROVIDED TO L.HEEL BLISTER/SORE. SITE APPEARS TO BE HEALING WITHOUT ANY S/S OF INFECTION, SCANT BLOODY DRAINAGE ON DRSG. CLEANSED WITH WOUND CLEANSER PATTED DRY AND THEN APPLIED PETROLEUM GUAZE DRSG AND WRAPPED WITH KERLIX. ELEVATED ON PILLOW AND BRIDGED HEEL OFF BED. PROVIDED PT WITH PRN PAIN PILL REQUESTED. PT VOICED THANKS AND DENIES ANY CURRENT NEEDS AT THIS TIME. CL IN REACH, BED IN LOWEST, SIDE RAILS X2. WILL CTM.
--- NOTE | 2018-02-14 10:07 | NUR ---
Rehab Note- Acute Inpatient Rehab prescreen order received. The patient was recently in our acute inpatient rehab unit and was discharged to [facility]. The patient is currently too low level for inpatient acute rehab, would recommend discharge back to a SNF level of care. Thank you for this referral! Kylie Davenport RN Clinical Liaison, [facility] Rehab
--- NOTE | 2018-02-14 10:15 | NUR ---
I DID CHART PT WAS A&O HOWEVER HE HAS NO MEMORY RECALL AND IS OFTEN ASKING ME THE SAME QUESTIONS OVER AND OVER. PT IS ALERT AND ORIENTED TO PERSON, TIME, PLACE HOWEVER NOT SITUATION. WILL CONTINUE TO REORIENT BUT SEEMS FROM HISTORY SHORT TERM MEMORY HARD TO OBTAIN. NO CURRENT NEEDS. WILL CTM.
[2018-02-14 11:53] VITALS: BP 101/55
--- NOTE | 2018-02-14 13:46 | NUR ---
PROVIDED PT WITH MAGNESIUM PER ELECTROLYTE PROTOCOL. PT C/O PAIN AGAIN REQUESTING AND WAS PROVIDED WITH PRN PAIN MEDICATION. PT SITTING UP IN BED RESTING QUIETLY AND DENIES ANY FURTHER NEEDS AT THIS TIME. CL IN REACH, BED IN LOWEST, SIDE RAILS X2. WILL CTM.
--- NOTE | 2018-02-14 14:07 | NUR ---
Nutrition follow-up: Diet: Renal ADA PO Intake ~25% of meals Labs reviewed; renal function continues to improve +BM No new wt to assess Recommend changing pts diet order to regular as tolerated due to pts poor po intake. RDN following.
--- NOTE | 2018-02-14 14:47 | NUR ---
REPOSITIONED PT UP IN BED FOR COMFORT AND TURNED HIM OFF HIS L.SIDE TO RELIEVE PRESSURE OFF HIS BUTTOCKS. PT HAS A FRICTION SHEAR/PRESSURE ULCER TO HIS BUTTOCKS TO BOTH UPPER BUTT CHEEKS. PT HAD A MEPILEX IN PLACE HOLDING MOISTURE, REMOVED IT AND APPLIED CALMOSEPTINE TO HELP HEAL THE SKIN. PT VOICED THANKS AND DENIES ANY FURTHER NEEDS AT THIS TIME. WILL CTM.
[2018-02-14 15:32] LABS: UPE RAND - ALBUMIN 34.3 % (()); UPE RAND - ALPHA 1 GLOBULIN 3.3 % (()); UPE RAND - ALPHA 2 GLOBULIN 9.5 % (()); UPE RAND - BETA GLOBULIN 20.6 % (()); UPE RAND - GAMMA GLOBULIN 32.4 % (())
[2018-02-14 16:36] VITALS: BP 124/74
--- NOTE | 2018-02-14 18:20 | NUR ---
PT HAD VANCOMYCIN IVPB DUE. PTS VANC TROUGH RESULTED 22.9 AND IS HIGH. NOTIFIED PHARMACY AND THEY STATE TO HOLD THIS DOSE AND START IN AM.
--- NOTE | 2018-02-14 18:23 | NUR ---
SECOND DOSE OF MAGNESIUM GIVEN PER ELECTROLYTE PROTOCOL. PT LYING BACK IN BED RESTING QUIETLY. DENIES ANY CURRENT PAIN OR NEEDS. WILL CTM.
[2018-02-15] VITALS: BP 124/76
[2018-02-15 04:00] VITALS: BP 146/106
--- NOTE | 2018-02-15 04:38 | NUR ---
PT SITTING UP IN BED ALERT BUT CONFUSED. PT HAS NOT SLEPT ALL NIGHT. RESPIRATIONS EVEN AND UNLABORED. CALL LIGHT WITHIN REACH. WILL CONTINUE TO MONITOR.
[2018-02-15 05:42] LABS: HEMATOCRIT 33.5 % (42.0-54.0); HEMOGLOBIN 11.3 g/dL (13.5-17.5); LYMPHOCYTES 28.1 % (15-50); MCH 32.3 pg (26.0-34.0); MCHC 33.7 g/dL (31.0-37.0); MCV 95.7 fL (80.0-100.0); MEAN PLATELET VOLUME 9.1 fL (7.4-10.4); NEUTROPHILS 60.1 % (40-80); PLATELET COUNT 265 10x3/uL (130-400); RDW 15.2 % (11.5-14.5); WBC 7.3 10x3/uL (4.8-10.8)
[2018-02-15 05:43] LABS: ANION GAP 14.2 mmol/L (8-16); BILIRUBIN - TOTAL 0.5 mg/dL (0.2-1.3); CALCIUM 8.1 mg/dL (8.5-10.1); CARBON DIOXIDE 22.6 mmol/L (21.0-32.0); CREATININE - SERUM 1.1 mg/dL (0.6-1.3); MAGNESIUM - SERUM 1.5 mg/dL (1.8-2.4); POTASSIUM - SERUM 3.8 mmol/L (3.5-5.1); PROTEIN - SERUM 7.5 g/dL (6.4-8.2)
[2018-02-15 07:58] VITALS: BP 139/86
--- NOTE | 2018-02-15 08:00 | NUR ---
CHANDNI GUAJARDO AT BEDSIDE ASSISTING PT WITH BREAKFAST. AM ROUNDS COMPLETED INTRODUCED MYSELF TO PT PRIMARY RN FOR TODAYS SHIFT. PT IS PLEASANTLY CONFUSED/DISORIENTED TO SITUATION/PLACE. PT STATES HE SLEPT GOOD. DENIES ANY CURRENT PAIN OR NEEDS AT THIS TIME. CL IN REACH, BED IN LOWEST, SIDE RAILS X2. WILL CTM.
--- NOTE | 2018-02-15 09:36 | NUR ---
PTS R.FA PIV WAS LEAKING. D/C WITH CATHETER TIP FULLY INTACT AND PLACED A NEW 20GUAGE PIV X1 STICK TO R.FA HIGH UP. PTS ANBX STILL INFUSING. PT IS VERY RESTLESS THIS AM TALKING ABOUT GOING TO [employer] AND JUST GETTING IN HIS TRUCK OFF SUNSHINE AND NEEDING TO GRAB HIS WALLET. I CONTINUOUSLY REDIRECT PT AND TELL HIM HE IS AT [facility] AND SITUATION AND HE CONTINUES TO STATE HE IS AWARE BUT WHEN IS THE LOG CHAIN WORKER COMING TO TAKE US. PT IS NOT REALLY UNDERSTANDING SITUATION. PT IS ORIENTED TO TIME/NAME/ ETC. PTS WESTON CATHETER IS LEAKING SO I REMOVED 5CC OF FLUID TO DEFLATE BALLOON AND REMOVED WESTON WITH CATHETER TIP FULLY INTACT. PT HAS HISTORY OF RENTENTION SO I WILL MONITER AND BLADDER SCAN IF PT ISNT VOIDING ENOUGH AND MAY HAVE TO REPLACE WESTON BUT FOR NOW WILL LEAVE OUT, PT STATES "I KNOW WHEN I CAN PEE AND I WILL GO IN THE THINGS" PTS BEDDING SOILED WITH URINE, PT ALSO HAD MODERATE AMOUNT OF SEMI FORMED BROWN STOOL. CLEANED UP PT AND CHANGED OUT ALL LINENS. PTS BUTTOCKS OPEN SORE/FRICTION JOVANA ARE BLEEDING VERY LITTLE BUT SKIN IS STILL HANGING ON BUT BUTTOCKS VERY SORE. APPLIED CALMOSEPTINE AND TURNED PT ONTO HIS L.SIDE TO RELIEVE PRESSURE AND WILL CONTINUE NEEDED. PT DENIES ANY FURTHER NEEDS AT THIS TIME. CL IN REACH, BED IN LOWEST, SIDE RAILS X2 AND MOSHE PAD IN PLACE. WILL CPOC.
--- NOTE | 2018-02-15 09:43 | MORECARE ---
CASE MANAGEMENT DISCHARGE SUMMARY PATIENT: EYAL LOGAN UNIT: [id number] ADM DATE: 02/05/18 AGE: 67 : [birth year] SEX: M ROOM/BED: D.2113 AUTHOR: TERESA,DOC PHYSICIAN: REFERRING PHYSICIAN: ADARSH HOLLIDAY MD DATE OF SERVICE: 02/15/18 Discharge Plan Patient Name: EYAL LOGAN [facility] [facility] 1950 Planned Dis[facility] Anticipated Discharge Date: 02/15/18 Discharge Date: Expected LOS: 10 Initial Reviewer: [id number] Initial Review Date: 02/07/2018 Generated: 02/15/18 10:43 am Comments DCP- Discharge Planning Updated by [id number]: Alex Wagner on 02/13/18 12:[address] Patient Name: EYAL LOGAN Encounter No: [id number] : 1950 Primary Insurance: MEDICARE A & B Anticipated DC Date: Planned Disposition: [facility] Facility External Planned Provider: [facility], MEDICARE REHAB BED DCP follow-up note: CM REVIEWED CHART, PT DOES NOT APPEAR TO BE PROGRESSING TO THE POINT THAT HE WILL BE APPROPRIATE FOR INPATIENT REHAB AND APPEARS TO BE APPROPRIATE FOR [facility] AT DISCHARGE. CM FA[facility]ED HOSP[facility] UPDATE [facility] AT [phone] PT'S DAUGHTER WOULD LIKE PT CONSIDERED FOR INPATIENT REHAB AT [place], IF PT DOES NOT QUALIFY FOR INPATIENT REHAB, DAUGHTER'S PLAN IS TO RETURN PT TO [facility] FOR CONTINUED REHAB WHO WILL ACCEPT PT BACK. IF PT IS NOT APPROPRIATE OR ACCEPTED AT [facility] INPATIENT REHAB AND READY FOR DISCHARGE, PT CAN RETURN TO [facility] FOR CONTINUED REHAB SERVICES; FAX DISCHARGE INFORMATION TO [facility] AT [phone]; NURSE REPORT [facility] BE [facility] AT [phone]. [facility] TO ARRANGE VAN TRANSPORTATION. Retail Customer Service Representative: Alex Wagner DCP- Discharge Planning Updated by [id number]: Alex Wagner on 02/08/18 3:[address] Patient Name: EYAL LOGAN Encounter No: [id number] : 1950 Primary Insurance: MEDICARE A & B Anticipated DC Date: Planned Disposition: [facility] Facility External Planned Provider: [facility], MEDICARE REHAB BED DCP follow-up note: CM RECEIVED CALL FROM PT'S DAUGHTER, ILDEFONSO, . ILDEFONSO WOULD LIKE PT CONSIDERED FOR INPATIENT REHAB AT [place] AGAIN HE HAD GOOD CARE AND REHAB WHILE THERE BEFORE [facility]. CM EXPLAINED THAT THERE WERE ADMISSION FACTORS SUCH THE TREATING DOCTOR AGREEING THAT INPATIENT REHAB IS APPROPRIATE LEVEL OF CARE, ADMITTING DIAGNOSIS FOR REHAB, NEED FOR ROUNDING OF DOCTOR AND 24 HOUR NURSING CARE, THE PATIENTS ABILITY TO PARTICIATE IN THREE HOURS OF PROGRESSIVE THERAPY PER DAY WELL PT'S MENTAL STATUS. DAUGHTER REPORTS UNDERSTANDING AND INFORMED CM THAT IF PT DOES NOT QUALIFY FOR INPATIENT REHAB, PT WILL RETURN TO [facility] FOR CONTINUED REHAB. CM REVIEWED CHART, OBTAINED ORDER FOR PHYSICAL THERAPY EVALUATION. PT'S DAUGHTER WOULD LIKE PT CONSIDERED FOR INPATIENT REHAB AT [place], IF PT DOES NOT QUALIFY FOR INPATIENT REHAB, DAUGHTER'S PLAN IS TO RETURN PT TO [facility] FOR CONT[facility] WHO WILL ACCEPT PT BACK. IF PT IS NOT APPROPRIATE OR ACCEPTED AT [facility] INPATIENT REHAB AND READY FOR DISCHARGE, PT CAN RETURN TO [facility] FOR CONTINUED REHAB SERVICES; FAX DISCHARGE INFORMATION TO [facility] AT [phone]; NURSE REPORT TO BE CALLED TO [facility] AT [phone]. [facility] TO AR[facility] VAN TRANSPORTATION. Retail Customer Service Representative: Alex Wagner DCP- Discharge Planning Updated by [id number]: Alex Wagner on 02/07/18 3:[address] Patient Name: EYAL LOGAN Admission Status: ER Accout number: [id number] Admission Date: 02-05-2018 : 1950 Admission Diagnosis: Attending: ADARSH HOLLIDAY Current LOS: 2 Anticipated DC Date: Planned Disposition: [facility] Facility Primary Insurance: MEDICARE A & B PLANNED EXTERNAL PROVIDER: [facility], MEDICARE REHAB BED Discharge Planning Comments: CM RECEIVED ORDER FOR ASSISTING WITH MEDICAL POWER OF EXPERIENCE DESIGNER, MET WITH PT IN ROOM TO DISCUSS DISCHARGE PLANNING AND NEEDS. PT REPORTS LIVING AT HOME INDEPENDENTLY WITH HIS DAUGHTER. PT HAS A WALKER AT HOME WITH NO MEDICAL EQUIPMENT PROVIDER PREFERNCE. PT THINKS HE HAS HOME HEALTH FROM UNKNOWN COMPANY COMING TO DO THERAPY AT HOME. PT REPORTS HE WAS IN A ALF BUT "THINKS" HE WENT HOME. CM DISCUSSED AVAILABILITY OF HOME HEALTH, REHAB SERVICES AND MEDICAL EQUIPMENT. PT THINKS HE WILL NEED MORE REHAB BEFORE HE GOES HOME. PT REPORTS HIS DAUGHTER WILL PICK HIM UP FOR DISCHARGE HOME. CM PROVIDED PT WITH MEDICAL POWER OF EXPERIENCE DESIGNER, INSTRUCTED ON HOW TO FILL IT OUT, NOT TO SIGN AND NOTIFY CM WHEN A NOTARY IS NEEDED TO WITNESS HIS SIGNATURE. PT REPORTS HE WILL GIVE THIS TO HIS DAUGHTER TO ASSIST. CM REVIEWED CHART WHICH INDICATES PT WAS IN REHAB AT [facility] SINCE 01-25-18 AND ADMITTED TO HOSPITAL FROM THE REHAB. CM ASKED PT ABOUT THIS APPROXIMATELY 1 HOUR SINCE CM'S FIRST ASSESSMENT; PT ASKED TO SEE THE "BOSS" AND COULD NOT TELL CM WHERE HE WAS AT, PT WAS NOT AWARE HE WAS IN THE HOSPITAL. CM SPOKE TO BEDSIDE NURSE WHO REPORTS PT SEEMS TO BE MORE CONFUSED THROUGH THE DAY. CM CALLED [facility], , SPOKE TO JOHN WHO VERIFIED THAT PT IS IN REHAB AND THEY WILL ACCEPT BACK FOR CONTINUE REHAB AT DISCHARGE. CM FAXED UPDATE TO [facility], . MEDICAL POWER OF EXPERIENCE DESIGNER PAPERWORK WILL HAVE TO WAIT UNTIL PT IS NOT CONFUSED FOR COMPLETION. ADVANCE DIRECTIVE COMPLETED BY PT FROM THE ALF IS LOCATED IN FRONT OF PT'S CHART. FOR DISCHARGE, FAX DISCHARGE INFORMATION TO [facility] AT [phone]; NURSE REPORT TO BE CALLED TO [facility] AT [phone]. [facility] TO AR[facility]ANGE VAN TRANSPORTATION. Retail Customer Service Representative: Alex Wagner DCPIA - Discharge Planning Initial Assessment Updated by [id number]: Alex Wagner on 02/07/18 3:53 pm * Is the patient Alert and Oriented? No * How many steps to enter\\exit or inside your home? * PCP DR. FLYNN * [facility] [place] * Preadmission Environment [facility] Facility * Facility Name [facility] * ADLs Partial Dependent * Partial ADLs (Assistance needed) Ambulation Bathing Dressing Medication Management Toileting Transfers * Equipment Other * Other Equipment ALL MEDICAL EQUIPMENT PROVIDED BY [facility] * List name and contact numbers for known caregivers / representatives who currently or will assist patient after discharge: ILDEFONSO SEO, DTR, * Verbal permission to speak to the caregivers and representatives has been obtained from the patient. Yes * Community resources currently utilized None * Please name any agencies selected above. NONE * Additional services required to return to the preadmission environment? No * Can the patient safely return to the preadmission environment? Yes * Has this patient been hospitalized within the prior 30 days at any hospital? Yes Last DP export: 02/13/18 12:38 pm Patient Name: EYAL LOGAN Page [id number] at 0943 All edits/amendments must be made on the electronic document DICTATION DATE: 02/15/18942 PRISONER CLASSIFICATION INTERVIEWER: WIL 02/15/18942 RPT#: [id number] DC DATE: STATUS: ADM IN [facility] [address] [place] [address] END OF REPORT
--- NOTE | 2018-02-15 11:36 | NUR ---
INITIATED MAGNESIUM TRANSFUSION PER ELECTROLYTE PROTOCOL PT DID NOT RESPOND TO ORAL REPLACEMENT YESTERDAY. 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 NO CURRENT NEEDS. WILL CTM.
[2018-02-15 11:46] VITALS: BP 142/76
--- NOTE | 2018-02-15 14:58 | NUR ---
PT HAS NOT VOID SINCE WESTON WAS REMOVED. WILL BLADDER SCAN TO SEE ABOUT RETENTION.
--- NOTE | 2018-02-15 16:10 | NUR ---
BLADDER SCAN DONE AND REVEALS 298ML OF URINE IN BLADDER. PT STATES HE FEELS LIKE HE CAN MAYBE VOID SO I PROVIDED WITH URINAL AND WILL CONTINUE TO MONITER FOR RETENTION.
[2018-02-15 16:25] VITALS: BP 134/79
--- NOTE | 2018-02-15 19:55 | NUR ---
PT CONFUSED BUT FOLLOWS DIRECTIONS MOST TIMES. PT HAVING TROUBLE LIFTING ARMS, PERFORMED ROM EXERCISES AND ENCOURAGED SELF CARE. REPOSITIONED PT IN BED. PM MEDS GIVEN, TOLERATED WELL. DENIES FURTHER NEEDS AT THIS TIME. WCTM AND FOLLOW POC. CL IN REACH, SR UP X2, BED IN LOW POSITION.
[2018-02-15 20:00] VITALS: BP 140/74
[2018-02-16 04:00] VITALS: BP 138/80
[2018-02-16 04:01] LABS: BASOPHILS 0.3 % (0-2); EOSINOPHILS 2.4 % (0-7); HEMATOCRIT 33.7 % (42.0-54.0); HEMOGLOBIN 11.2 g/dL (13.5-17.5); IMMATURE GRANULOCYTES 0.4 % (0-5); LYMPHOCYTES 29.4 % (15-50); MCHC 33.2 g/dL (31.0-37.0); MCV 96.3 fL (80.0-100.0); MEAN PLATELET VOLUME 9.5 fL (7.4-10.4); MONOCYTES 10.2 % (2-11); NEUTROPHILS 57.3 % (40-80); PLATELET COUNT 282 10x3/uL (130-400); RDW 15.6 % (11.5-14.5); WBC 7.6 10x3/uL (4.8-10.8)
[2018-02-16 04:27] LABS: ALBUMIN 1.9 g/dL (3.4-5.0); ALKALINE PHOSPHATASE 120 U/L (46-116); BILIRUBIN - TOTAL 0.49 mg/dL (0.2-1.3); CALC OSMOLALITY 270 mosm/kg (275-300); CALCIUM 8.5 mg/dL (8.5-10.1); CARBON DIOXIDE 20.5 mmol/L (21.0-32.0); CHLORIDE - SERUM 102 mmol/L (98-107); GLUCOSE 101 mg/dL (74-106); MAGNESIUM - SERUM 1.8 mg/dL (1.8-2.4); POTASSIUM - SERUM 3.7 mmol/L (3.5-5.1); PROTEIN - SERUM 7.7 g/dL (6.4-8.2); SODIUM 134 mmol/L (136-145); UREA NITROGEN 20 mg/dL (7-18); VANCOMYCIN - TROUGH 17.8 ug/mL (10.0-20.0); eGFR NON AFRICAN AMERICAN 80 mL/min (90-120)
[2018-02-16 04:31] LABS: ALT (SGPT) 15 U/L (10-68)
--- NOTE | 2018-02-16 06:27 | NUR ---
PT A/O X3. VANC INFUSING OVER 2 HOURS. PT STATES HE IS COUGHING UP YELLOW SPUTUM. PT STATES HE IS COMFORTABLE IN BED BUT WANTS HIS PAIN MEDICINE. ADMINISTERED PRESCRIBED ANALGESIC. NO FURTHER NEEDS NOTED. RR EVEN AND UL. SR UP X2, CL IN REACH, BED IN LOW POSITION.
--- NOTE | 2018-02-16 08:00 | NUR ---
RECIEVED BEDSIDE REPORT. AM ROUNDS COMPLETED. VSS, PT AAO X3, RESP UNLABORED. PT RESTING IN BED WITH BOTH EYES OPEN. DENIES ANY NEED FOR PAIN AT THIS TIME. WILL CONTINUE POC. CL IN REACH AND BED IN LOW.
[2018-02-16 09:02] VITALS: BP 132/68
[2018-02-16 12:17] VITALS: BP 120/64
--- NOTE | 2018-02-16 13:00 | NUR ---
PT C/O UPPER ABDOMINAL PAIN. ASSESSED PT ADMOMEN AND HELP PT UP IN BED. PT STATES HE IS FEELING A LOT BETTER. WILL CTM. CL IN REACH, BED IN LOW.
[2018-02-16 15:27] VITALS: BP 132/68
--- NOTE | 2018-02-16 18:00 | NUR ---
ASSESSED PT WOUND ON LEFT HEEL. DRESSING C/D/I. REMOVED THE OLD DRESSING. CLEANED AND PAT DRIED, COVERED WITH XEROFORM 4X4 GAUZE AND TAPE. PT TOLERATED WILL. WILL CTM. CL IN REACH, BED IN LOW.
[2018-02-16 19:44] VITALS: BP 135/86
--- NOTE | 2018-02-16 20:00 | NUR ---
INITIAL ROUNDS COMPLETED. PT C/O SOB. EDUCATED THAT HE NEEDS TO WEAR 02 IN ORDER TO FEEL BETTER AND LESS SOB. PT VERBALIZED UNDERSTANDING BUT STILL CONTINUE TO TAKE 02 OFF. PT FAMILY AT BEDSIDE, INFORMED PT SON OF PT BEHAVIORS. SON STATES THAT THE PT IS "STUBBORN." NO FURTHER NEEDS NOTED AT THIS TIME. WCTM AND FOLLOW POC. CL IN REACH, SR UP X2, BED ALARM ON. PT CLEAN AND DRY. NO LINEN CHANGE NEEDED.
[2018-02-16 23:50] VITALS: BP 145/91
--- NOTE | 2018-02-17 02:00 | NUR ---
PT DEMONSTRATING ATTENTION-SEEKING BEHAVIOR. PT ALERT BUT CLAIMS TO BE DISORIENTED. PT CLAIMS HE DOES NOT KNOW WHEN HE IS HAVING A BM AND WHEN OFFERED TO BE CHECKED AND LINENS CHANGED, SAYS HE DOES NOT BELIEVE HE HAS USED THE BATHROOM. PT REMEMBERS NURSE FROM PREVIOUS SHIFT, BUT CLAIMS HE DOES NOT KNOW MY NAME. PT REPEATEDLY INFECTION CONTROL MANAGER LIGHT AND WHEN SOMEONE GOES IN THERE PT STATES "OH I DIDN'T MEAN TO PRESS MY LIGHT." PT ALSO DEMONSTRATING INAPPROIATE BEHAVIOR BY BLOWING KISSES TO STAFF AND TELLING STAFF THEY ARE "GOOD LOOKING." CORRECTED PT AND REORIENTED THAT IT IS NECESSARY TO STAY PROFESSIONAL WITH ALL STAFF. PT CLAIMS HE IS NOT BEING APPROPRIATE. WCTM. SR UP X2, CL IN REACH.
[2018-02-17 03:45] VITALS: BP 129/86
--- NOTE | 2018-02-17 05:34 | NUR ---
TO PT ROOM VIA CALL LIGHT. PT STATES HE "DID NOT MEAN TO PRESS THE BUTTON." ASKED PT IF HE HAD A BM, PT STATES HE DID NOT. THERE IS A SMELL IN THE ROOM THAT SMELLS LIKE BM, CHECKED PT AND PT HAD A VERY LARGE AND LIQUIDY BM. COMPLETE LINEN CHANGE AND BED WIPE DOWN WITH ASSISTANCE OF CHANDNI PIMENTEL. APPLIED BARRIER CREAM AND INFORMED PT TO PRESS CALL LIGHT WHEN HE THINKS HE MIGHT BE SOILED. CL IN REACH, SR UP X2, BED ALARM ON, 02 PLACE ON PT, 2L VIA IL. WCTM.
[2018-02-17 06:11] LABS: ALBUMIN 1.9 g/dL (3.4-5.0); ANION GAP 14.8 mmol/L (8-16); BILIRUBIN - TOTAL 0.56 mg/dL (0.2-1.3); CALCIUM 8.8 mg/dL (8.5-10.1); CARBON DIOXIDE 20.6 mmol/L (21.0-32.0); CREATININE - SERUM 1.1 mg/dL (0.6-1.3); MAGNESIUM - SERUM 1.8 mg/dL (1.8-2.4); POTASSIUM - SERUM 3.4 mmol/L (3.5-5.1); PROTEIN - SERUM 7.6 g/dL (6.4-8.2)
[2018-02-17 06:18] LABS: BASOPHILS 0.5 % (0-2); EOSINOPHILS 1.9 % (0-7); HEMATOCRIT 32.3 % (42.0-54.0); HEMOGLOBIN 10.7 g/dL (13.5-17.5); IMMATURE GRANULOCYTES 0.5 % (0-5); LYMPHOCYTES 29.6 % (15-50); MCH 31.9 pg (26.0-34.0); MCHC 33.1 g/dL (31.0-37.0); MCV 96.4 fL (80.0-100.0); MEAN PLATELET VOLUME 9.9 fL (7.4-10.4); MONOCYTES 10.6 % (2-11); NEUTROPHILS 56.9 % (40-80); PLATELET COUNT 295 10x3/uL (130-400); RBC 3.35 10x6/uL (4.20-6.10); RDW 15.6 % (11.5-14.5); WBC 8.1 10x3/uL (4.8-10.8)
--- NOTE | 2018-02-17 07:53 | NUR ---
PT RESTING IN BED. NO S/S OF ACUTE DISTRESS. CL IN PLACE.
[2018-02-17 08:00] VITALS: BP 152/77
[2018-02-17 16:00] VITALS: BP 116/76
[2018-02-17 17:55] VITALS: BP 142/85
--- NOTE | 2018-02-17 18:50 | NUR ---
PT SITTING UP IN BED. VERY CONFUSED. "WE NEED TO FIND A PLACE TO PUT THE CHILDREN, THEY WILL FREEZE TONIGHT." TRIED TO REORIENT WITH NO SUCCESS. NO S/S OF ACUTE DISTRESS. CL IN PLACE.
--- NOTE | 2018-02-17 19:30 | NUR ---
RECEIVED REPORT, WILL ASSUME CARE OF PT, DENIES ANY NEEDS AT THIS TIME, BED IS LOW, SRX2, CALL LIGHT IN REACH, WILL CONTINUE PLAN OF CARE
--- NOTE | 2018-02-17 21:00 | NUR ---
REPOSTION TO L.SIDE
--- NOTE | 2018-02-17 23:10 | NUR ---
ASSISTED CHANDNI THAPA WITH CLEAN UP/REPOSTION, ALSO CHANGED DRESSING TO L.FOOT
[2018-02-18 03:51] VITALS: BP 151/79
--- NOTE | 2018-02-18 04:04 | NUR ---
PT RESTING IN BED WITH RESPS EVEN/NONLABORED. NO DISTRESS. MONITOR AND CPOC.
--- NOTE | 2018-02-18 08:03 | NUR ---
PT RESTING IN BED. "HEY NURSE COME HERE". CAME IN AND ASKED PT IF I COULD HELP HIM AND HE HAD A LONG PAUSE. TURNED ON TV FOR PT PER HIS REQUEST. NO S/S OF ACUTE DISTRESS. CL IN PLACE.
[2018-02-18 08:59] VITALS: BP 173/90
[2018-02-18 13:05] VITALS: BP 144/78
[2018-02-18 16:09] VITALS: BP 154/62
--- NOTE | 2018-02-18 18:22 | NUR ---
PT SITTING UP IN BED. INSURANCE SPECIALIST ASSISTED ME IN CHANGING PT. APPLIED CALMOSEPTINE PER MD ORDER TO BUTTOCKS. CHANGED DRESSING TO L HEEL, OFFLOADED HEELS. TURNED PT TO L SIDE AND PLACED PILLOW ON THE R. LIGHT PINK URINE NOTED TO PAD. NO S/S OF ACUTE DISTRESS. CL IN PLACE.
--- NOTE | 2018-02-18 19:38 | NUR ---
RECEIVED REPORT, WILL ASSUME CARE OF PT, PT IS STILL EATING DINNER, DENIES ANY NEEDS, BED IS LOW, SRX2, CALL LIGHT IN REACH, ALARM IS ON, WILL CONTINUE PLAN OF CARE
[2018-02-18 19:45] VITALS: BP 163/80
[2018-02-18 23:41] VITALS: BP 140/70
[2018-02-19 03:49] VITALS: BP 163/87
--- NOTE | 2018-02-19 04:07 | NUR ---
PT RESTING IN BED WITH NO DISTRESS. RESPS NONLABORED. MONITOR AND CPOC. CALL LIGHT IN REACH.
[2018-02-19 06:17] LABS: HEMATOCRIT 33.5 % (42.0-54.0); MCH 31.6 pg (26.0-34.0); MCHC 32.8 g/dL (31.0-37.0); MCV 96.3 fL (80.0-100.0); MEAN PLATELET VOLUME 9.8 fL (7.4-10.4); PLATELET COUNT 338 10x3/uL (130-400); RBC 3.48 10x6/uL (4.20-6.10); RDW 15.5 % (11.5-14.5); WBC 5.7 10x3/uL (4.8-10.8)
[2018-02-19 06:34] LABS: ALBUMIN 2.1 g/dL (3.4-5.0); ANION GAP 15.3 mmol/L (8-16); BILIRUBIN - TOTAL 0.4 mg/dL (0.2-1.3); CALCIUM 8.7 mg/dL (8.5-10.1); CARBON DIOXIDE 19.6 mmol/L (21.0-32.0); CREATININE - SERUM 1.5 mg/dL (0.6-1.3); POTASSIUM - SERUM 3.9 mmol/L (3.5-5.1); PROTEIN - SERUM 8.2 g/dL (6.4-8.2)
--- NOTE | 2018-02-19 07:19 | NUR ---
REPORT RECEIVED. WILL CONTINUE WITH POC. PT CURRENTLY LYING SEMI FOWLERS. CALL LIGHT W/I REACH. RR EVEN AND UNLABORED ON 3L 02. NS INFUSING @KVO VIA R.FOR PIV. PT IS RESTING AT THE MOMENT. WILL CTM.
[2018-02-19 08:10] VITALS: BP 163/79
[2018-02-19 08:42] LABS: LYMPHOCYTES 31 % (15-50); MONOCYTES 3 % (2-11); NEUTROPHILS 66 % (40-80); PLATELET ESTIMATE NORMAL; ROULEAUX OCC
--- NOTE | 2018-02-19 09:21 | NUR ---
AM MEDICATIONS ADMINISTERED. PT DENIES ANY NEEDS AT THIS TIME. WILL CTM.
--- NOTE | 2018-02-19 09:28 | NUR ---
IV PATENT. CALL LIGHT IN REACH. NO NEEDS VOICED AT THIS TIME. WILL MONITOR.
--- NOTE | 2018-02-19 10:57 | MORECARE ---
CASE MANAGEMENT DISCHARGE SUMMARY PATIENT: EYAL LOGAN UNIT: [id number] ADM DATE: 02/05/18 AGE: 67 : 54 SEX: M ROOM/BED: D.2113 AUTHOR: TERESA,DOC PHYSICIAN: REFERRING PHYSICIAN: ADARSH HOLLIDAY MD DATE OF SERVICE: 02/19/18 Discharge Plan Patient Name: EYAL LOGAN Facility: [facility]:[place] : 1950 Planned Disposition: Half-Way Facility Anticipated Discharge Date: 02/15/18 Discharge Date: Expected LOS: 10 Initial Reviewer: [id number] Initial Review Date: 02/07/2018 Generated: 02/19/18 11:57 am Comments DCP- Discharge Planning Updated by [id number]: Alex Wagner on 02/19/18 9:[address] Patient Name: EYAL LOGAN Encounter No: [id number] : 1950 Primary Insurance: MEDICARE A & B Anticipated DC Date: 02-15-2018 Planned Disposition: Half-Way Facility External Planned Provider: [facility], MEDICARE REHAB BED DCP follow-up note: CM FAXED HOSPITAL UPDATE TO [facility] AT [phone]. PT'S DAUGHTER WOULD LIKE PT CONSIDERED FOR INPATIENT REHAB AT [facility], IF PT DOES NOT QUALIFY FOR INPATIENT REHAB, DAUGHTER'S PLAN IS TO RETURN PT TO [facility] FOR CONT[facility]UED REHAB WHO WILL ACCEPT PT BACK. PT IS NOT APPROPRIATE FOR INPATIENT REHAB AT THIS TIME. PT CAN RETURN TO [facility] FOR CONTINUED REHAB SERVICES; FAX DISCHARGE INFORMATION TO [facility] AT [phone]; NURSE REPORT TO BE CALLED TO [facility] AT [phone]. [facility] TO ARRANGE VAN TRANSPORTATION. Hr Recruiter: Alex Wagner DCP- Discharge Planning Updated by [id number]: Alex Wagner on 02/13/18 12:[address] Patient Name: EYAL LOGAN Encounter No: [id number] : 1950 Primary Insurance: MEDICARE A & B Anticipated DC Date: Planned Disposition: Half-Way Facility External Planned Provider: [facility], MEDICARE REHAB BED DCP follow-up note: CM REVIEWED CHART, PT DOES NOT APPEAR TO BE PROGRESSING TO THE POINT THAT HE WILL BE APPROPRIATE FOR INPATIENT REHAB AND APPEARS TO BE APPROPRIATE FOR HALF-WAY REHAB AT DISCHARGE. CM FAXED HOSPITAL UPDATE TO [facility] AT [phone] PT'S DAUGHTER WOULD LIKE PT CONSIDERED FOR INPATIENT REHAB AT [facility], IF PT DOES NOT QUALIFY FOR INPATIENT REHAB, DAUGHTER'S PLAN IS TO RETURN PT TO [facility] FOR CONTINUED REHAB WHO WILL ACCEPT PT BACK. IF PT IS NOT APPROPRIATE OR ACCEPTED AT [facility] INPATIENT REHAB AND READY FOR DISCHARGE, PT CAN RETURN TO [facility] FOR CONTINUED REHAB SERVICES; FAX DISCHARGE INFORMATION TO [facility] AT [phone]; NURSE REPORT TO BE CALLED TO [facility] AT [phone]. [facility] TO [facility]ANGE VAN TRANSPORTATION. Hr Recruiter: Alex Wagner DCP- Discharge Planning Updated by [id number]: Alex Wagner on 02/08/18 3:[address] Patient Name: EYAL LOGAN Encounter No: [id number] : 1950 Primary Insurance: MEDICARE A & B Anticipated DC Date: Planned Disposition: Half-Way Facility External Planned Provider: [facility], MEDICARE REHAB BED DEP follow-up note: CM RECEIVED CALL FROM PT'S DAUGHTER, ILDEFONSO, . ILDEFONSO WOULD LIKE PT CONSIDERED FOR INPATIENT REHAB AT [facility] AGAIN HE HAD GOOD CARE AND REHAB WHILE THERE BEFORE GOING TO [facility] AND REHAB THIS LAST TIME. CM EXPLAINED THAT THERE WERE ADMISSION FACTORS SUCH THE TREATING DOCTOR AGREEING THAT INPATIENT REHAB IS APPROPRIATE LEVEL OF CARE, ADMITTING DIAGNOSIS FOR REHAB, NEED FOR ROUNDING OF DOCTOR AND 24 HOUR NURSING CARE, THE PATIENTS ABILITY TO PARTICIATE IN THREE HOURS OF PROGRESSIVE THERAPY PER DAY WELL PT'S MENTAL STATUS. DAUGHTER REPORTS UNDERSTANDING AND INFORMED CM THAT IF PT DOES NOT QUALIFY FOR INPATIENT REHAB, PT WILL RETURN TO [facility] FOR CONTINUED REHAB. CM REVIEWED CHART, OBTAINED ORDER FOR PHYSICAL THERAPY EVALUATION. PT'S DAUGHTER WOULD LIKE PT CONSIDERED FOR INPATIENT REHAB AT [facility], IF PT DOES NOT QUALIFY FOR INPATIENT REHAB, DAUGHTER'S PLAN IS TO RETURN PT TO [facility] FOR CONTINUED REHAB WHO WILL ACCEPT PT BACK. IF PT IS NOT APPROPRIATE OR ACCEPTED AT [facility] INPATIENT REHAB AND READY FOR DISCHARGE, PT CAN RETURN TO [facility] FOR CONTINUED REHAB SERVICES; FAX DISCHARGE INFORMATION TO [facility] AT [phone]; NURSE REPORT TO BE CALLED TO [facility] AT [phone]. [facility] TO [facility]ANGE VAN TRANSPORTATION. Hr Recruiter: Alex Wagner DCP- Discharge Planning Updated by [id number]: Alex Wagner on 02/07/18 3:[address] Patient Name: EYAL LOGAN Admission Status: ER Accout number: [id number] Admission Date: 02-05-2018 : 1950 Admission Diagnosis: Attending: ADARSH HOLLIDAY Current LOS: 2 Anticipated DC Date: Planned Disposition: Half-Way Facility Primary Insurance: MEDICARE A & B PLANNED EXTERNAL PROVIDER: [facility], MEDICARE REHAB BED Discharge Planning Comments: CM RECEIVED ORDER FOR ASSISTING WITH MEDICAL POWER OF [employer] REPAIR TECHNICIAN, MET WITH PT IN ROOM TO DISCUSS DISCHARGE PLANNING AND NEEDS. PT REPORTS LIVING AT HOME INDEPENDENTLY WITH HIS DAUGHTER. PT HAS A WALKER AT HOME WITH NO MEDICAL EQUIPMENT PROVIDER PREFERNCE. PT THINKS HE HAS HOME HEALTH FROM UNKNOWN COMPANY COMING TO DO THERAPY AT HOME. PT REPORTS HE WAS IN A [place] BUT "THINKS" HE WENT HOME. CM DISCUSSED AVAILABILITY OF HOME HEALTH, REHAB SERVICES AND MEDICAL EQUIPMENT. PT THINKS HE WILL NEED MORE REHAB BEFORE HE GOES HOME. PT REPORTS HIS DAUGHTER WILL PICK HIM UP FOR DISCHARGE HOME. CM PROVIDED PT WITH MEDICAL POWER OF [employer] REPAIR TECHNICIAN, INSTRUCTED ON HOW TO FILL IT OUT, NOT TO SIGN AND NOTIFY CM WHEN A NOTARY IS NEEDED TO WITNESS HIS SIGNATURE. PT REPORTS HE WILL GIVE THIS TO HIS DAUGHTER TO ASSIST. CM REVIEWED CHART WHICH INDICATES PT WAS IN REHAB AT [facility] SINCE 01-25-18 AND ADMITTED TO HOSPITAL FROM THE REHAB. CM ASKED PT ABOUT THIS APPROXIMATELY 1 HOUR SINCE CM'S FIRST ASSESSMENT; PT ASKED TO SEE THE "BOSS" AND COULD NOT TELL CM WHERE HE WAS AT, PT WAS NOT AWARE HE WAS IN THE HOSPITAL. CM SPOKE TO BEDSIDE NURSE WHO REPORTS PT SEEMS TO BE MORE CONFUSED THROUGH THE DAY. CM CALLED [facility], , SPOKE TO JOHN WHO VERIFIED THAT PT IS IN REHAB AND THEY WILL ACCEPT BACK FOR CONTINUE REHAB AT DISCHARGE. CM FAXED UPDATE TO [facility], . MEDICAL POWER OF [employer] REPAIR TECHNICIAN PAPERWORK WILL HAVE TO WAIT UNTIL PT IS NOT CONFUSED FOR COMPLETION. ADVANCE DIRECTIVE COMPLETED BY PT FROM THE [place] IS LOCATED IN FRONT OF PT'S CHART. FOR DISCHARGE, FAX DISCHARGE INFORMATION TO [facility] AT [phone]; NURSE REPORT TO BE CALLED TO [facility] AT [phone]. [facility] TO ARRANGE VAN TRANSPORTATION. Hr Recruiter: Alex Wagner DCPIA - Discharge Planning Initial Assessment Updated by [id number]: Alex Wagner on 02/07/18 3:53 pm * Is the patient Alert and Oriented? No * How many steps to enter\\exit or inside your home? * PCP DR. FLYNN * [facility] [place] * Preadmission Environment Half-Way Facility * Facility Name [facility] * ADLs Partial Dependent * Partial ADLs (Assistance needed) Ambulation Bathing Dressing Medication Management Toileting Transfers * Equipment Other * Other Equipment ALL MEDICAL EQUIPMENT PROVIDED BY HALF-WAY REHAB FACLITY * List name and contact numbers for known caregivers / representatives who currently or will assist patient after discharge: ILDEFONSO SEO DTR, * Verbal permission to speak to the caregivers and representatives has been obtained from the patient. Yes * Community resources currently utilized None * Please name any agencies selected above. NONE * Additional services required to return to the preadmission environment? No * Can the patient safely return to the preadmission environment? Yes * Has this patient been hospitalized within the prior 30 days at any hospital? Yes Last DP export: 02/15/18 8:43 a Patient Name: EYAL LOGAN Page [phone] at 1057 All edits/amendments must be made on the electronic document DICTATION DATE: 02/19/18 1051 INFORMATION TECHNOLOGY TECHNICIAN: WIL 02/19/18 1052 RPT#: [id number] DC DATE: STATUS: ADM IN [facility] [address] [place] [address] END OF REPORT
[2018-02-19 11:45] VITALS: BP 179/97
[2018-02-19] MEDS ORDERED: FLOMAX0.4 MG PO (14:53)
[2018-02-19] MEDS ORDERED: PROTONIX40 MG PO (14:54)
[2018-02-19] MEDS ORDERED: ELIQUIS2.5 MG PO (15:00)
[2018-02-19] MEDS ORDERED: ELIQUIS5 MG PO (15:00)
--- NOTE | 2018-02-19 15:30 | MORECARE ---
CASE MANAGEMENT DISCHARGE SUMMARY PATIENT: EYAL LOGAN UNIT: [id number] ADM DATE: 02/05/18 AGE: 67 : 54 SEX: M ROOM/BED: D.2113 AUTHOR: TERESA,DOC PHYSICIAN: REFERRING PHYSICIAN: ADARSH HOLLIDAY MD DATE OF SERVICE: 02/19/18 Discharge Plan Patient Name: EYAL LOGAN Facility: [facility]:[place] : 1950 Planned Disposition: Intermediate Facility Anticipated Discharge Date: 02/19/18 Discharge Date: Expected LOS: 14 Initial Reviewer: [id number] Initial Review Date: 02/07/2018 Generated: 02/19/18 4:30 pm Comments DCP- Discharge Planning Updated by [id number]: Alex Wagner on 02/19/18 9:[address] Patient Name: EYAL LOGAN Encounter No: [id number] : 1950 Primary Insurance: MEDICARE A & B Anticipated DC Date: 02-15-2018 Planned Disposition: Intermediate Facility External Planned Provider: [facility], MEDICARE REHAB BED DCP follow-up note: CM FAXED HOSPITAL UPDATE TO [facility] AT [phone]. PT'S DAUGHTER WOULD LIKE PT CONSIDERED FOR INPATIENT REHAB AT [place], IF PT DOES NOT QUALIFY FOR INPATIENT REHAB, DAUGHTER'S PLAN IS TO RETURN PT TO [facility] FOR CONT[facility] WHO WILL ACCEPT PT BACK. PT IS NOT APPROPRIATE FOR INPATIENT REHAB AT THIS TIME. PT CAN RETURN TO [facility] FOR CONTINUED REHAB SERVICES; FAX DISCHARGE INFORMATION TO [facility] AT [phone]; NURSE REPORT TO [facility] AT [phone]. [facility] TO ARRANGE VAN TRANSPORTATION. Cdl Company Driver: Alex Wagner DCP- Discharge Planning Updated by [id number]: Alex Wagner on 02/13/18 12:[address] Patient Name: EYAL LOGAN Encounter No: [id number] : 1950 Primary Insurance: MEDICARE A & B Anticipated DC Date: Planned Disposition: Intermediate Facility External Planned Provider: [facility], MEDICARE REHAB BED DCP follow-up note: CM REVIEWED CHART, PT DOES NOT APPEAR TO BE PROGRESSING TO THE POINT THAT HE WILL BE APPROPRIATE FOR INPATIENT REHAB AND APPEARS TO BE APPROPRIATE FOR [facility] AT DISCHARGE. CM FAXED HOSPITAL UPDATE TO [facility] AT [phone] PT'S DAUGHTER WOULD LIKE PT CONSIDERED FOR INPATIENT REHAB AT [facility], IF PT DOES NOT QUALIFY FOR INPATIENT REHAB, DAUGHTER'S PLAN IS TO RETURN PT [facility] FOR CONT[facility] REHAB WHO WILL ACCEPT PT BACK. IF PT IS NOT APPROPRIATE OR ACCEPTED AT [facility] INPATIENT REHAB AND READY FOR DISCHARGE, PT CAN RETURN TO [facility] FOR CONTINUED REHAB SERVICES; FAX DISCHARGE INFORMATION TO [facility] AT [phone]; NURSE REPORT TO BE CALLED TO [facility] AT [phone]. [facility] TO ARRANGE VAN TRANSPORTATION. [employer] Driver: Alex Wagner DCP- Discharge Planning Updated by [id number]: Alex Wagner on 02/08/18 3:[address] Patient Name: EYAL LOGAN Encounter No: [id number] : 1950 Primary Insurance: MEDICARE A & B Anticipated DC Date: Planned Disposition: Intermediate Facility External Planned Provider: [facility], MEDICARE REHAB BED WIP follow-up note: CM RECEIVED CALL FROM PT'S DAUGHTER, ILDEFONSO, . ILDEFONSO WOULD LIKE PT CONSIDERED FOR INPATIENT REHAB AT [place] AGAIN HE HAD GOOD CARE AND REHAB WHILE THERE BEFORE GOING TO [facility] AND REHAB THIS LAST TIME. CM EXPLAINED THAT THERE WERE ADMISSION FACTORS SUCH THE TREATING DOCTOR AGREEING THAT INPATIENT REHAB IS APPROPRIATE LEVEL OF CARE, ADMITTING DIAGNOSIS FOR REHAB, NEED FOR ROUNDING OF DOCTOR AND 24 HOUR NURSING CARE, THE PATIENTS ABILITY TO PARTICIATE IN THREE HOURS OF PROGRESSIVE THERAPY PER DAY WELL PT'S MENTAL STATUS. DAUGHTER REPORTS UNDERSTANDING AND INFORMED CM THAT IF PT DOES NOT QUALIFY FOR INPATIENT REHAB, PT WILL RETURN TO [facility] FOR CONTINUED REHAB. CM REVIEWED CHART, OBTAINED ORDER FOR PHYSICAL THERAPY EVALUATION. PT'S DAUGHTER WOULD LIKE PT CONSIDERED FOR INPATIENT REHAB AT [place], IF PT DOES NOT QUALIFY FOR INPATIENT REHAB, DAUGHTER'S PLAN IS TO RETURN PT TO [facility] FOR CONTINUED REHAB WHO WILL ACCEPT PT BACK. IF PT IS NOT APPROPRIATE OR ACCEPTED AT [facility] INPATIENT REHAB AND READY FOR DISCHARGE, PT CAN RETURN TO [facility] FOR CONTINUED REHAB SERVICES; FAX DISCHARGE INFORMATION TO [facility] AT [phone]; NURSE REPORT TO BE CALLED TO [facility] AT [phone]. [facility] TO ARRANGE VAN TRANSPORTATION. [employer] Driver: Alex Wagner DCP- Discharge Planning Updated by [id number]: Alex Wagner on 02/07/18 3:[address] Patient Name: EYAL LOGAN Admission Status: ER Accout number: [id number] Admission Date: 02-05-2018 : 1950 Admission Diagnosis: Attending: ADARSH HOLLIDAY Current LOS: 2 Anticipated DC Date: Planned Disposition: Intermediate Facility Primary Insurance: MEDICARE A & B PLANNED EXTERNAL PROVIDER: [facility], MEDICARE REHAB BED Discharge Planning Comments: CM RECEIVED ORDER FOR ASSISTING WITH MEDICAL POWER OF OPTICAL DISPENSER, MET WITH PT IN ROOM TO DISCUSS DISCHARGE PLANNING AND NEEDS. PT REPORTS LIVING AT HOME INDEPENDENTLY WITH HIS DAUGHTER. PT HAS A WALKER AT HOME WITH NO MEDICAL EQUIPMENT PROVIDER PREFERNCE. PT THINKS HE HAS HOME HEALTH FROM UNKNOWN COMPANY COMING TO DO THERAPY AT HOME. PT REPORTS HE WAS IN A ASSISTED BUT "THINKS" HE WENT HOME. CM DISCUSSED AVAILABILITY OF HOME HEALTH, REHAB SERVICES AND MEDICAL EQUIPMENT. PT THINKS HE WILL NEED MORE REHAB BEFORE HE GOES HOME. PT REPORTS HIS DAUGHTER WILL PICK HIM UP FOR DISCHARGE HOME. CM PROVIDED PT WITH MEDICAL POWER OF OPTICAL DISPENSER, INSTRUCTED ON HOW TO FILL IT OUT, NOT TO SIGN AND NOTIFY CM WHEN A NOTARY IS NEEDED TO WITNESS HIS SIGNATURE. PT REPORTS HE WILL GIVE THIS TO HIS DAUGHTER TO ASSIST. CM REVIEWED CHART WHICH INDICATES PT WAS IN REHAB AT [facility] SINCE 01-25-18 AND ADMITTED TO HOSPITAL FROM THE REHAB. CM ASKED PT ABOUT THIS APPROXIMATELY 1 HOUR SINCE CM'S FIRST ASSESSMENT; PT ASKED TO SEE THE "BOSS" AND COULD NOT TELL CM WHERE HE WAS AT, PT WAS NOT AWARE HE WAS IN THE HOSPITAL. CM SPOKE TO BEDSIDE NURSE WHO REPORTS PT SEEMS TO BE MORE CONFUSED THROUGH THE DAY. CM CALLED [facility], , SPOKE TO JOHN WHO VERIFIED THAT PT IS IN REHAB AND THEY WILL ACCEPT BACK FOR CONTINUE REHAB AT DISCHARGE. CM FAXED UPDATE TO [facility], . MEDICAL POWER OF OPTICAL DISPENSER PAPERWORK WILL HAVE TO WAIT UNTIL PT IS NOT CONFUSED FOR COMPLETION. ADVANCE DIRECTIVE COMPLETED BY PT FROM THE ASSISTED IS LOCATED IN FRONT OF PT'S CHART. FOR DISCHARGE, FAX DISCHARGE INFORMATION TO [facility] AT [phone]; NURSE REPORT TO BE CALLED TO [facility] AT [phone]. [facility] TO ARRANGE VAN TRANSPORTATION. [employer] Driver: Alex Wagner DCPIA - Discharge Planning Initial Assessment Updated by [id number]: Alex Wagner on 02/07/18 3:53 pm * Is the patient Alert and Oriented? No * How many steps to enter\\exit or inside your home? * PCP DR. FLYNN * [facility] [place] * Preadmission Environment Intermediate Facility * Facility Name [facility] * ADLs Partial Dependent * Partial ADLs (Assistance needed) Ambulation Bathing Dressing Medication Management Toileting Transfers * Equipment Other * Other Equipment ALL MEDICAL EQUIPMENT PROVIDED BY [facility] * List name and contact numbers for known caregivers / representatives who currently or will assist patient after discharge: ILDEFONSO SEO DTR, * Verbal permission to speak to the caregivers and representatives has been obtained from the patient. Yes * Community resources currently utilized None * Please name any agencies selected above. NONE * Additional services required to return to the preadmission environment? No * Can the patient safely return to the preadmission environment? Yes * Has this patient been hospitalized within the prior 30 days at any hospital? Yes Last DP export: 02/19/18 9:57 a Patient Name: EYAL LOGAN Page [phone] at 1530 All edits/amendments must be made on the electronic document DICTATION DATE: 02/19/18 1530 ACCREDITED PHARMACY TECHNICIAN: WIL 02/19/18 153 RPT#: [id number] DC DATE: STATUS: ADM IN [facility] [address] [facility] [place] [address] END OF REPORT
--- NOTE | 2018-02-19 16:00 | MORECARE ---
CASE MANAGEMENT DISCHARGE SUMMARY PATIENT: EYAL LOGAN UNIT: [id number] ADM DATE: 02/05/18 AGE: 67 : 54 SEX: M ROOM/BED: D.2113 AUTHOR: TERESA,DOC PHYSICIAN: REFERRING PHYSICIAN: ADARSH HOLLIDAY MD DATE OF SERVICE: 02/19/18 Discharge Plan Patient Name: [facility]YAL LOGAN [facility] [facility] 1950 Planned Disposition: Long-Term Facility Anticipated Discharge Date: 02/19/18 Discharge Date: Expected LOS: 14 Initial Reviewer: [id number] Initial Review Date: 02/07/2018 Generated: 02/19/18 5:00 pm Comments DCP- Discharge Planning Updated by [id number]: Alex Roque on 02/19/18 2:[address] Patient Name: EYAL LOGAN Encounter No: [id number] : 1950 Primary Insurance: MEDICARE A & B Anticipated DC Date: 02-15-2018 Planned Disposition: Long-Term Facility External Planned Provider: [facility], MEDICARE REHAB BED DCP follow-up note: CM FAXED HOSPITAL UPDATE TO [facility] AT [phone]. PT'S DAUGHTER WOULD LIKE PT CONSIDERED FOR INPATIENT REHAB AT [facility], IF PT DOES NOT QUALIFY FOR INPATIENT REHAB, DAUGHTER'S PLAN IS TO RETURN PT TO [facility] FOR CONT[facility]UED REHAB WHO WILL ACCEPT PT BACK. PT IS NOT APPROPRIATE FOR INPATIENT REHAB AT THIS TIME. PT CAN RETURN TO [facility] FOR CONTINUED REHAB SERVICES; FAX DISCHARGE INFORMATION TO [facility] AT [phone]; NURSE REPORT [facility] AT [phone]. [facility] TO [facility]RANGE VAN TRANSPORTATION. Firer Locomotive Crane: Alex Roque Appended by Alex Roque on 02/19/2018 15:58 ACID STRENGTH INSPECTOR: CM RECEIVED DISCHARGE ORDERS, SPOKE TO ILDEFONSO SEO DTR, , INFORMED OF DISCHARGE AND PROVIDED NUMBER TO [employer] OFFICE FOR MEDICARE, PROVIDED EXPLANATION OF IMPORTANT MESSAGE FROM MEDICARE. CM EXPLAINED THAT PT IS NOT APPROPRIATE FOR INPATIENT REHAB HE IS TO LOW LEVEL FUNCTIONING. DAUGHTER IN AGREEMENT WITH DISCHARGE BACK TO REHAB AT [facility]. CM LEFT IMPORTANT MESSAGE IN ROOM, DISCUSSED WITH PT AT HIS REQUEST. CM NOTIFIED NIKOLAI AT [facility], FAXED DISCHARGE INFORMATION TO [facility] AT [phone]. NURSE REPORT TO BE CALLED TO [facility] AT [phone]. PT TO TRANSPORT VIA AMBULANCE. ALEX ROQUE, CASE MANAGEMENT DCP- Discharge Planning Updated by [id number]: Alex Roque on 02/13/18 12:[address] Patient Name: EYAL LOGAN Encounter No: [id number] : 1950 Primary Insurance: MEDICARE A & B Anticipated DC Date: Planned Disposition: Long-Term Facility External Planned Provider: [facility], MEDICARE REHAB BED DCP follow-up note: CM REVIEWED CHART, PT DOES NOT APPEAR TO BE PROGRESSING TO THE POINT THAT HE WILL BE APPROPRIATE FOR INPATIENT REHAB AND APPEARS TO BE APPROPRIATE FOR [facility] AT DISCHARGE. CM FAXED HOSPITAL UPDATE TO [facility] AT [phone] PT'S DAUGHTER WOULD LIKE PT CONSIDERED FOR INPATIENT REHAB AT [facility], IF PT DOES NOT QUALIFY FOR INPATIENT REHAB, DAUGHTER'S PLAN IS TO RETURN PT TO [facility] FOR CONT[facility]UED REHAB WHO WILL ACCEPT PT BACK. IF PT IS NOT APPROPRIATE OR ACCEPTED AT [facility] INPATIENT REHAB AND READY FOR DISCHARGE, PT CAN RETURN TO [facility] FOR CONTINUED REHAB SERVICES; FAX DISCHARGE INFORMATION TO [facility] AT [phone]; NURSE REPORT TO BE CALLED TO [facility] AT [phone]. [facility] TO [facility]ANGE VAN TRANSPORTATION. Firer Locomotive Crane: Alex Roque DCP- Discharge Planning Updated by [id number]: Alex Roque on 02/08/18 3:[address] Patient Name: EYAL LOGAN Encounter No: [id number] : 1950 Primary Insurance: MEDICARE A & B Anticipated DC Date: Planned Disposition: Long-Term Facility External Planned Provider: [facility], MEDICARE REHAB BED DCP follow-up note: CM RECEIVED CALL FROM PT'S DAUGHTERILDEFONSO, . ILDEFONSO WOULD LIKE PT CONSIDERED FOR INPATIENT REHAB AT [facility] AGAIN HE HAD GOOD CARE AND REHAB WHILE THERE BEFORE GOING TO [facility] THIS LAST TIME. CM EXPLAINED THAT THERE WERE ADMISSION FACTORS SUCH THE TREATING DOCTOR AGREEING THAT INPATIENT REHAB IS APPROPRIATE LEVEL OF CARE, ADMITTING DIAGNOSIS FOR REHAB, NEED FOR ROUNDING OF DOCTOR AND 24 HOUR NURSING CARE, THE PATIENTS ABILITY TO PARTICIATE IN THREE HOURS OF PROGRESSIVE THERAPY PER DAY WELL PT'S MENTAL STATUS. DAUGHTER REPORTS UNDERSTANDING AND INFORMED CM THAT IF PT DOES NOT QUALIFY FOR INPATIENT REHAB, PT WILL RETURN TO [facility] FOR CONTINUED REHAB. CM REVIEWED CHART, OBTAINED ORDER FOR PHYSICAL THERAPY EVALUATION. PT'S DAUGHTER WOULD LIKE PT CONSIDERED FOR INPATIENT REHAB AT [facility], IF PT DOES NOT QUALIFY FOR INPATIENT REHAB, DAUGHTER'S PLAN IS TO RETURN PT TO [facility] FOR CONTINUED REHAB WHO WILL ACCEPT PT BACK. IF PT IS NOT APPROPRIATE OR ACCEPTED AT [facility] INPATIENT REHAB AND READY FOR DISCHARGE, PT CAN RETURN TO [facility] FOR CONTINUED REHAB SERVICES; FAX DISCHARGE INFORMATION TO [facility] AT [phone]; NURSE REPORT TO BE CALLED TO [facility] AT [phone]. [facility] TO [facility]RANGE VAN TRANSPORTATION. Firer Locomotive Crane: Alex Roque DCP- Discharge Planning Updated by [id number]: Alex Roque on 02/07/18 3:[address] Patient Name: EYAL LOGAN Admission Status: ER Accout number: [id number] Admission Date: 02-05-2018 : 1950 Admission Diagnosis: Attending: ADARSH HOLLIDAY Current LOS: 2 Anticipated DC Date: Planned Disposition: Long-Term Facility Primary Insurance: MEDICARE A & B PLANNED EXTERNAL PROVIDER: [facility], MEDICARE REHAB BED Discharge Planning Comments: CM RECEIVED ORDER FOR ASSISTING WITH MEDICAL POWER OF WORKFORCE INVESTMENT ACT CAREER MANAGER, MET WITH PT IN ROOM TO DISCUSS DISCHARGE PLANNING AND NEEDS. PT REPORTS LIVING AT HOME INDEPENDENTLY WITH HIS DAUGHTER. PT HAS A WALKER AT HOME WITH NO MEDICAL EQUIPMENT PROVIDER PREFERNCE. PT THINKS HE HAS HOME HEALTH FROM UNKNOWN COMPANY COMING TO DO THERAPY AT HOME. PT REPORTS HE WAS IN A [facility] BUT "THINKS" HE WENT HOME. CM DISCUSSED AVAILABILITY OF HOME HEALTH, REHAB SERVICES AND MEDICAL EQUIPMENT. PT THINKS HE WILL NEED MORE REHAB BEFORE HE GOES HOME. PT REPORTS HIS DAUGHTER WILL PICK HIM UP FOR DISCHARGE HOME. CM PROVIDED PT WITH MEDICAL POWER OF WORKFORCE INVESTMENT ACT CAREER MANAGER, INSTRUCTED ON HOW TO FILL IT OUT, NOT TO SIGN AND NOTIFY CM WHEN A NOTARY IS NEEDED TO WITNESS HIS SIGNATURE. PT REPORTS HE WILL GIVE THIS TO HIS DAUGHTER TO ASSIST. CM REVIEWED CHART WHICH INDICATES PT WAS IN REHAB AT [facility] SINCE 01-25-18 AND ADMITTED TO HOSPITAL FROM THE REHAB. CM ASKED PT ABOUT THIS APPROXIMATELY 1 HOUR SINCE CM'S FIRST ASSESSMENT; PT ASKED TO SEE THE "BOSS" AND COULD NOT TELL CM WHERE HE WAS AT, PT WAS NOT AWARE HE WAS IN THE HOSPITAL. CM SPOKE TO BEDSIDE NURSE WHO REPORTS PT SEEMS TO BE MORE CONFUSED THROUGH THE DAY. CM CALLED [facility], , SPOKE TO JOHN WHO VERIFIED THAT PT IS IN REHAB AND THEY WILL ACCEPT BACK FOR CONTINUE REHAB AT DISCHARGE. CM FAXED UPDATE TO [facility], . MEDICAL POWER OF WORKFORCE INVESTMENT ACT CAREER MANAGER PAPERWORK WILL HAVE TO WAIT UNTIL PT IS NOT CONFUSED FOR COMPLETION. ADVANCE DIRECTIVE COMPLETED BY PT FROM THE [facility] IS LOCATED IN FRONT OF PT'S CHART. FOR DISCHARGE, FAX DISCHARGE INFORMATION TO [facility] AT [phone]; NURSE REPORT TO BE CALLED TO [facility] AT [phone]. [facility] TO ARRANGE VAN TRANSPORTATION. Firer Locomotive Crane: Alex Roque DCPIA - Discharge Planning Initial Assessment Updated by [id number]: Alex Roque on 02/07/18 3:53 pm * Is the patient Alert and Oriented? No * How many steps to enter\\exit or inside your home? * PCP DR. FLYNN * Pharmacy [facility] [place] * Preadmission Environment Long-Term Facility * Facility Name [facility] * ADLs Partial Dependent * Partial ADLs (Assistance needed) Ambulation Bathing Dressing Medication Management Toileting Transfers * Equipment Other * Other Equipment ALL MEDICAL EQUIPMENT PROVIDED BY [facility] * List name and contact numbers for known caregivers / representatives who currently or will assist patient after discharge: ILDEFONSO SEO DTR, * Verbal permission to speak to the caregivers and representatives has been obtained from the patient. Yes * Community resources currently utilized None * Please name any agencies selected above. NONE * Additional services required to return to the preadmission environment? No * Can the patient safely return to the preadmission environment? Yes * Has this patient been hospitalized within the prior 30 days at any hospital? Yes External Providers External Provider: [facility] Next Contact Date: 02/08/2018 Service Request Date: Service Type: Resolution: Reviewer: Comments: Coverage Notice Reviewer: [id number] - Alex Roque Notice Issued Date-Time: 02/19/2018 15:45 Notice Type: IM Discharge Notice Notice Delivered To: Family Member Relationship to Patient: Daughter Medical Manager Name: ILDEFONSO SEO Delivery Method: PHONE - Phone Vijaya Days: Prior Verbal Notification: Recipient Understood Notice: Yes Recipient Signature: Med Rec Note Co-signed by Attending: Coverage Notice Comment: Last DP export: 02/19/18 2:30 p Patient Name: EYAL LOGAN Page [id number] at 1600 All edits/amendments must be made on the electronic document DICTATION DATE: 02/19/181558 FLAG SIGNALMAN: WIL 02/19/181558 RPT#: [id number] DC DATE: STATUS: ADM IN [facility] [address] [place] [address] END OF REPORT
--- NOTE | 2018-02-19 17:17 | NUR ---
PT DISCHARGED TO [facility] VIA STRETCHER WITH EMS. PIV REMOVED WITH CATHETER TIP FULLY INTACT. PT SIGNED PROPER DISCHARGE INSTRUCTIONS AND REMOVED ALL VALUABLES FROM THE ROOM.
== END 2018-02-19 17:45 | DRG 441 ==
LOC: D.ER 11:19 → D.M2 16:16 → D.EDHOLD 16:16 → D.M2 16:46
PROVIDERS: Emergency Medicine; Family Medicine; ADMIT Internal Medicine Nephrology
DX: K72.90 Hepatic failure, unspecified without coma (principal); I26.99 Other pulmonary embolism without acute cor pulmonale; N17.9 Acute kidney failure, unspecified; K86.1 Other chronic pancreatitis; R78.81 Bacteremia; N32.0 Bladder-neck obstruction; D50.9 Iron deficiency anemia, unspecified; F10.10 Alcohol abuse, uncomplicated; I48.2 Chronic atrial fibrillation; J44.9 Chronic obstructive pulmonary disease, unspecified; R26.89 Other abnormalities of gait and mobility; L21.9 Seborrheic dermatitis, unspecified; I10 Essential (primary) hypertension

== ENCOUNTER → 2018-03-06 07:56 | Outpatient (CLI) | payer MEDICARE, BC ==
[2018-02-07 12:16] VITALS: BMI 27.1
[~2018-03-06 07:56] MED LIST changes: +ALDACTONE25 MG PO; +CHRONULAC30 ML PO; +COLACE100 MG PO; +ELIQUIS2.5 MG PO; +ELIQUIS5 MG PO; +FLOMAX0.4 MG PO; +PROTONIX40 MG PO; +ZOLOFT25 MG PO
== END | disposition home or self-care (01) ==
LOC: D.CT 07:56
DX: M54.5 Low back pain (principal)

== ENCOUNTER → 2018-03-15 12:01 | Outpatient (CLI) | payer MEDICARE, BC ==
[2018-02-07 12:16] VITALS: BMI 27.1
[2018-03-15 12:55] LABS: APPEARANCE CLOUDY (CLEAR); BILIRUBIN NEGATIVE (NEGATIVE); COLOR YELLOW (YELLOW); GLUCOSE NEGATIVE (NEGATIVE); KETONE NEGATIVE (NEGATIVE); NITRITE NEGATIVE (NEGATIVE); PROTEIN 1+ mg/dL (NEGATIVE); UROBILINOGEN NORMAL (NORMAL)
[2018-03-15 12:57] LABS: BACTERIA MANY /hpf (NONE SEEN); EPITHELIAL CELLS 0-5 /hpf (0-5); RED CELLS - URINE >50 /hpf (0-5); WHITE CELLS - URINE 25-50 /hpf (0-5)
[2018-03-15 12:58] LABS: AMORPHOUS SEDIMENT >1+ /lpf (NONE SEEN); GRANULAR CAST OCC /lpf (NONE SEEN); HYALINE CAST RARE /lpf (NONE SEEN)
== END | disposition home or self-care (01) ==
LOC: D.LABREF 12:01
PROVIDERS: Family Medicine
DX: R50.9 Fever, unspecified (principal); R33.9 Retention of urine, unspecified

== ENCOUNTER → 2018-04-06 17:57 | Outpatient (CLI) | payer MEDICARE, BC ==
[2018-02-07 12:16] VITALS: BMI 27.1
== END | disposition home or self-care (01) ==
LOC: D.LABREF 17:57
PROVIDERS: ATTEND Family Medicine
DX: N18.9 Chronic kidney disease, unspecified (principal)

== ENCOUNTER 2019-09-01 20:01 | Inpatient (IN) | payer MEDICARE, BC ==
[~2019-09-01] VITALS: Ht 177.8 cm; Wt 120.2 kg
--- NOTE | 2019-09-01 00:30 | NUR ---
RECEIVED PT FROM ER VIA STRETCHER. STAFF X4 TRANSFERRED PT TO BED. PT IS A PARAPLEGIC. ALERT AND ORIENTED X4. FROM [facility]. STATES HE HAS BEEN TESTED FOR COVID AND WAS NEGATIVE WITHIN THE LAST WEEK OR SO. ABD IS FIRM AND DISTENDED. BS ARE HYPOACTIVE. STATES HE HAS HAD SOME DIARRHEA. REPORTS NAUSEA. DENIES PAIN. PICC LINE NOTED TO RT UPPER ARM. PT HAS BRIGHT RED RASH ALL OVER BODY. HAS CHRONIC WESTON DUE TO RETENTION. RECENT URETERAL STENT A WEEK AGO. O2 @ 2LNC. 1/2 NS @ 50 MLHR INFUSING IN PICC. ONLY ABLE TO WIGGLE TOES IS BED BOUND. EXCORIATION NOTED TO BUTTOCKS. INSTRUCTED ON NPO STATUS. SR ELEVATED X2. CL IN REACH.
[2019-09-01] MEDS ORDERED: NORVASC5 MG PO (20:25)
[2019-09-01] MEDS ORDERED: DIFLUCAN100 MG PO (20:26)
[2019-09-01] MEDS ORDERED: VITAMIN B-12500 MCG PO (20:26)
[2019-09-01] MEDS ORDERED: FUROSEMIDE20 MG PO (20:27)
[2019-09-01] MEDS ORDERED: COLACE100 MG PO (20:27)
[2019-09-01] MEDS ORDERED: FOLIC ACID1 MG PO (20:27)
[2019-09-01] MEDS ORDERED: LINZESS290 MCG PO (20:28)
[2019-09-01] MEDS ORDERED: LEVO-T150 MCG PO (20:28)
[2019-09-01] MEDS ORDERED: LISINOPRIL10 MG PO (20:29)
[2019-09-01 20:50] LABS: BASOPHILS 0.3 % (0-2); EOSINOPHILS 4.6 % (0-7); HEMATOCRIT 45.3 % (42.0-54.0); HEMOGLOBIN 14.4 g/dL (13.5-17.5); IMMATURE GRANULOCYTES 0.3 % (0-5); LYMPHOCYTES 17.9 % (15-50); MCH 31.5 pg (26.0-34.0); MCHC 31.8 g/dL (31.0-37.0); MCV 99.1 fL (80.0-100.0); MEAN PLATELET VOLUME 9.9 fL (7.4-10.4); MONOCYTES 8.8 % (2-11); NEUTROPHILS 68.1 % (40-80); PLATELET COUNT 279 10x3/uL (130-400); RBC 4.57 10x6/uL (4.20-6.10); WBC 9.3 10x3/uL (4.8-10.8)
[2019-09-01 21:02] LABS: APTT 38.2 SECONDS (22.8-39.4); INR 1.15 (0.85-1.17); PROTIME 14.7 SECONDS (11.6-15.0)
[2019-09-01] MEDS ORDERED: PROTONIX40 MG PO (21:13)
[2019-09-01] MEDS ORDERED: TOPROL XL100 MG PO (21:13)
[2019-09-01] MEDS ORDERED: ZOLOFT25 MG PO (21:14)
[2019-09-01] MEDS ORDERED: FLOMAX0.4 MG PO (21:14)
[2019-09-01 21:15] LABS: CALC OSMOLALITY 286 mosm/kg (275-300); CALCIUM 9.3 mg/dL (8.5-10.1); CARBON DIOXIDE 26.4 mmol/L (21.0-32.0); CHLORIDE - SERUM 108 mmol/L (98-107); CREATININE - SERUM 1.1 mg/dL (0.6-1.3); GLUCOSE 103 mg/dL (74-106); POTASSIUM - SERUM 3.6 mmol/L (3.5-5.1); SODIUM 144 mmol/L (136-145); UREA NITROGEN 12 mg/dL (7-18); eGFR NON AFRICAN AMERICAN 71 mL/min (90-120)
[2019-09-01] MEDS ORDERED: ADVAIR 250-501 EAC1 INH (21:15)
[2019-09-01] MEDS ORDERED: VITAMIN B-1100 M1 PO (21:15)
[2019-09-01] MEDS ORDERED: AMITIZA24 MCG PO (21:15)
[2019-09-01] MEDS ORDERED: ELIQUIS5 MG PO (21:16)
[2019-09-01] MEDS ORDERED: CHRONULAC30 ML PO (21:17)
[2019-09-01] MEDS ORDERED: BETAPACE 120 M120 MG PO (21:17)
[2019-09-01] MEDS ORDERED: GABAPENTIN300 MG PO (21:18)
[2019-09-01] MEDS ORDERED: MERREM 1 GM/NS 11 G1 IV (21:18)
[2019-09-01] MEDS ORDERED: CREON DR 6,0001 EACH PO ×2 (21:18→21:25)
[2019-09-01] MEDS ORDERED: K-DUR20 MEQ PO (21:19)
[2019-09-01] MEDS ORDERED: MIDODRINE HCL5 MG PO (21:19)
[2019-09-01] MEDS ORDERED: GAS-X180 MG PO (21:20)
[2019-09-01] MEDS ORDERED: BACLOFEN10 MG PO (21:21)
[2019-09-01] MEDS ORDERED: CYTOTEC200 MCG PO (21:21)
[2019-09-01] MEDS ORDERED: ZOFRAN8 MG PO (21:22)
[2019-09-01] MEDS ORDERED: PHENERGAN25 M1 PO (21:22)
[2019-09-01] MEDS ORDERED: HYDROCODON-ACE1 EAC7 PO (21:22)
[2019-09-01 21:24] LABS: ALBUMIN 3.4 g/dL (3.4-5.0); ALKALINE PHOSPHATASE 143 U/L (30-120); ALT (SGPT) 19 U/L (10-68); AMYLASE - SERUM 40 U/L (25-115); BILIRUBIN - TOTAL 0.43 mg/dL (0.2-1.3); LIPASE 131 U/L (73-393); PROTEIN - SERUM 7.4 g/dL (6.4-8.2)
[2019-09-01 21:36] LABS: TROPONIN-I < 0.017 ng/mL (0.000-0.060)
[2019-09-01 21:50] LABS: BILIRUBIN NEGATIVE (NEGATIVE); GLUCOSE NEGATIVE (NEGATIVE); KETONE NEGATIVE (NEGATIVE); NITRITE NEGATIVE (NEGATIVE); UROBILINOGEN NORMAL (NORMAL)
[2019-09-01 21:51] LABS: WHITE CELLS - URINE >50 /hpf (NEGATIVE)
[2019-09-01 21:52] LABS: BACTERIA MODERATE /hpf (NEGATIVE); EPITHELIAL CELLS NSEEN /hpf (0-5); YEAST >1+ WITH HYPHAE /hpf (NONE SEEN)
[2019-09-01 21:53] LABS: CALCIUM OXALATE CRYSTALS 0-5 /hpf (NONE SEEN)
[2019-09-02] MEDS ORDERED: FLORAJEN3 CAPS460 MG PO (01:33)
[2019-09-02] MEDS ORDERED: FLOMAX0.4 MG PO (01:39)
[2019-09-02] MEDS ORDERED: DULCOLAX5 MG (01:52)
[2019-09-02] MEDS ORDERED: IPRAT-ALBUT 0.5-3 ML UPD (01:54)
[2019-09-02] MEDS ORDERED: CYTOTEC200 MCG PO (02:01)
[2019-09-02] MEDS ORDERED: ACETAMINOPHEN500 M1 PO (02:02)
[2019-09-02] MEDS ORDERED: BACLOFEN10 MG PO (02:04)
[2019-09-02 02:19] VITALS: BP 120/77; BMI 38.1
--- NOTE | 2019-09-02 04:05 | NUR ---
STATES HE FEELS BETTER. NO VOMITING NOTED. CL IN REACH. WATCHING TV. NO DISTRESS.
[2019-09-02 05:17] LABS: INR 1.22 (0.85-1.17); PROTIME 15.3 SECONDS (11.6-15.0)
[2019-09-02 05:32] LABS: BASOPHILS 0.2 % (0-2); EOSINOPHILS 5.2 % (0-7); HEMATOCRIT 41.5 % (42.0-54.0); IMMATURE GRANULOCYTES 0.3 % (0-5); LYMPHOCYTES 22.1 % (15-50); MCH 30.7 pg (26.0-34.0); MCHC 31.3 g/dL (31.0-37.0); MCV 98.1 fL (80.0-100.0); MEAN PLATELET VOLUME 10.3 fL (7.4-10.4); MONOCYTES 9.3 % (2-11); NEUTROPHILS 62.9 % (40-80); PLATELET COUNT 298 10x3/uL (130-400); RBC 4.23 10x6/uL (4.20-6.10); RDW 16.1 % (11.5-14.5); WBC 8.7 10x3/uL (4.8-10.8)
[2019-09-02 05:34] LABS: ANION GAP 13.7 mmol/L (8-16); CALCIUM 9.1 mg/dL (8.5-10.1); CARBON DIOXIDE 23.9 mmol/L (21.0-32.0); CREATININE - SERUM 1.1 mg/dL (0.6-1.3); MAGNESIUM - SERUM 1.8 mg/dL (1.8-2.4); PHOSPHOROUS 3.3 mg/dL (2.5-4.9); POTASSIUM - SERUM 3.6 mmol/L (3.5-5.1); THYROID STIMULATING HORMONE 0.3 uIU/mL (0.36-3.74)
[2019-09-02 08:00] VITALS: BP 99/66
[2019-09-02 11:00] VITALS: BP 120/78
--- NOTE | 2019-09-02 12:12 | NUR ---
PT CO OF PAIN 5 OUT OF 10 ON THE PAIN SCALE. ASKED IF HE TOOK MEDS OK. HE STATED HE DID. TOOK HIS MEDS WITH THE COMPLETE GLASS OF WATER WHEN I TOLD HIM TO ONLY USE A SIP OR MUCH NEEDED TO GET THE MEDS DOWN. CL IN REACH. WCTM
[2019-09-02 12:37] VITALS: Ht 177.8 cm; Wt 120.2 kg
--- NOTE | 2019-09-02 12:42 | NUR ---
DAUGHTER ON PHONE ABOUT PT. PERMISSION TO SPEAK TO ILDEFONSO SEO.
--- NOTE | 2019-09-02 13:03 | NUR ---
[facility] HOME PHONE NUMBER. OTHER PHONE IS A CELL.
--- NOTE | 2019-09-02 14:46 | NUR ---
MIDLINE DRESSING CHANGED. TOLERATED WELL. STERILE TECHNIQUE MAINTAINED. MEDS GIVEN PER EMAR. REQUESTS AND WILL RECEIVE MINT SWABS. CL IN REACH. WCTM
[2019-09-02 16:40] VITALS: BP 134/83
--- NOTE | 2019-09-02 17:18 | MORECARE ---
CASE MANAGEMENT DISCHARGE SUMMARY PATIENT: EYAL LOGAN UNIT: [id number] ADM DATE: 09/01/19 AGE: 69 : 52 SEX: M ROOM/BED: D.2210 AUTHOR: DILIA MOORE PHYSICIAN: REFERRING PHYSICIAN: JENNY MCKEON MD DATE OF SERVICE: 09/02/19 Discharge Plan Patient Name: EYAL LOGAN [facility] : 1950 Planned Disposition: Anticipated Discharge Date: Discharge Date: Expected LOS: Initial Reviewer: [id number] Initial Review Date: 09/02/2019 Generated: 09/02/19 6:18 pm Comments DCP- Discharge Planning Updated by [id number]: Airam Walker on 09/02/19 4:[address] MCKEON HE WANTS THE PATIENT TO BE DISCHARGED TO [facility] WITH UROLOGY TO DR TERRELL. I STARTED THE PROCESS AND SPOKE WITH FELICE AT [facility]. SHE WILL FAX A TRANSFER BACK AGREEMENT AND START THE PROCESS TO GET HIM TRANSFERED Patient Name: EYAL LOGAN Page 99393 at 1718 All edits/amendments must be made on the electronic document DICTATION DATE: 09/02/191717 PRISON LIBRARIAN: WIL 09/02/191717 RPT#: [id number] DC DATE: STATUS: ADM IN [place] [address] [place] [address] END OF REPORT
--- NOTE | 2019-09-02 17:28 | MORECARE ---
CASE MANAGEMENT DISCHARGE SUMMARY PATIENT: EYAL LOGAN UNIT: [id number] ADM DATE: 09/01/19 AGE: 69 : 52 SEX: M ROOM/BED: D.2210 AUTHOR: DILIA MOORE PHYSICIAN: REFERRING PHYSICIAN: JENNY MCKEON MD DATE OF SERVICE: 09/02/19 Discharge Plan Patient Name: YEAL LOGAN [facility] : 1950 Planned Disposition: Anticipated Discharge Date: Discharge Date: Expected LOS: Initial Reviewer: [id number] Initial Review Date: 09/02/2019 Generated: 09/02/19 6:27 pm Comments DCP- Discharge Planning Updated by [id number]: Airam Walker on 09/02/19 4:[address] [facility] SUP NOTIFIED OF TRANSFER DCP- Discharge Planning Updated by [id number]: Airam Walker on 09/02/19 4:[address] MCKEON HE WANTS THE PATIENT TO BE DISCHARGED TO [facility] WITH UROLOGY TO DR TERRELL. I STARTED THE PROCESS AND SPOKE WITH FELICE AT [facility]. SHE WILL FAX A TRANSFER BACK AGREEMENT AND START THE PROCESS TO GET HIM TRANSFERED Last DP export: 09/02/19 4:18 p Patient Name: EYAL LOGAN Page 28865 at 1728 All edits/amendments must be made on the electronic document DICTATION DATE: 09/02/191726 J2EE CONSULTANT: WIL 09/02/191726 RPT#: [id number] DC DATE: STATUS: ADM IN [facility] [address] [place] [address] END OF REPORT
[2019-09-02 20:00] VITALS: BP 103/69
--- NOTE | 2019-09-02 20:29 | NUR ---
ADMINISTERED PT PM MEDICATIONS SCHEDULED WITH SIPS OF WATER, NO OTHER NEEDS AT THIS TIME, CONTINUE WITH PLAN OF CARE
--- NOTE | 2019-09-03 00:42 | NUR ---
I have reviewed this patient and I concur with the Shift Assessment completed by the Licensed Practical Nurse today this shift.
[2019-09-03 04:00] VITALS: BP 134/77
[2019-09-03 05:42] LABS: BASOPHILS 0.6 % (0-2); EOSINOPHILS 8.8 % (0-7); HEMOGLOBIN 12.4 g/dL (13.5-17.5); IMMATURE GRANULOCYTES 0.5 % (0-5); LYMPHOCYTES 26.1 % (15-50); MCH 31.1 pg (26.0-34.0); MCHC 31.8 g/dL (31.0-37.0); MCV 97.7 fL (80.0-100.0); MEAN PLATELET VOLUME 9.8 fL (7.4-10.4); MONOCYTES 10.2 % (2-11); NEUTROPHILS 53.8 % (40-80); RBC 3.99 10x6/uL (4.20-6.10); RDW 15.7 % (11.5-14.5)
[2019-09-03 05:50] LABS: PLATELET COUNT 233 10x3/uL (130-400); WBC 6.4 10x3/uL (4.8-10.8)
[2019-09-03 06:26] LABS: ANION GAP 12.4 mmol/L (8-16); CALCIUM 8.8 mg/dL (8.5-10.1); CARBON DIOXIDE 26.4 mmol/L (21.0-32.0); CREATININE - SERUM 1.1 mg/dL (0.6-1.3); MAGNESIUM - SERUM 1.8 mg/dL (1.8-2.4); PHOSPHOROUS 3.3 mg/dL (2.5-4.9); POTASSIUM - SERUM 3.8 mmol/L (3.5-5.1)
--- NOTE | 2019-09-03 07:15 | NUR ---
DID WALKING ROUNDS, PT LAYING IN BED WITH EYES OPEN, PT IS TALKING TO DOCTOR, ALL QUESTIONS ANSWERED, IV INFUSING WITHOUT DIFFICULTY, TO LEFT UPPER ARM, SITE CLEAR, WESTON PATENT TO BEDSIDE DRAINAGE, PT DENIES PAIN OR NEEDS AT THIS TIME, SR UP X2, CALL LIGHT IN REACH, BED LOW AND LOCKED, WILL CONTINUE TO MONITOR
[2019-09-03] MEDS ORDERED: Benadryl INJ IV (07:52)
[2019-09-03] MEDS ORDERED: LEVOFLOXAC750 MG/150 IV (07:52)
[2019-09-03] MEDS ORDERED: FLAGYL 500500 MG/100 IV (07:53)
[2019-09-03] MEDS ORDERED: XOPENEX 1.1.25 MG/3 UPD (07:53)
[2019-09-03] MEDS ORDERED: ZOFRAN INJ IV (07:54)
[2019-09-03] MEDS ORDERED: LEVOTHYROXINE75 MCG PO (07:55)
--- NOTE | 2019-09-03 07:55 | NUR ---
DID A LINEN AND PAD CHANGE DUE TO INCONTINENT OF BOWEL, PT TOLERATED WELL, PT HAS A RED RASH ALL OVER BODY, THIS IS NOT NEW, PT GETTING BENADRYL FOR ITCHING
--- NOTE | 2019-09-03 09:06 | NUR ---
GAVE PT SCHEDULED MEDS WITHOUT DIFFICULTY, REPOSITIONED PT FOR COMFORT, NO OTHER NEEDS VOICE, CALL LIGHT IN REACH, BED LOW AND LOCKED, WILL CONTINUE TO MONITOR
[2019-09-03 09:15] VITALS: BP 126/79
--- NOTE | 2019-09-03 11:51 | MORECARE ---
CASE MANAGEMENT DISCHARGE SUMMARY PATIENT: EYAL LOGAN UNIT: [id number] ADM DATE: 09/01/19 AGE: 69 : 52 SEX: M ROOM/BED: D.2210 AUTHOR: DILIA MOORE PHYSICIAN: REFERRING PHYSICIAN: JENNY MCKEON MD DATE OF SERVICE: 09/03/19 Discharge Plan Patient Name: EYAL LOGAN [facility] : 1950 Planned Disposition: Anticipated Discharge Date: Discharge Date: Expected LOS: Initial Reviewer: [id number] Initial Review Date: 09/02/2019 Generated: 09/03/19 12:50 pm Comments DCP- Discharge Planning Updated by [id number]: Airam Walker on 09/03/19 10:[address] Patiene will be transferred to [facility], accepting MD is Dr Hunt he will go via EMS DCP- Discharge Planning Updated by [id number]: Airam Walker on 09/02/19 4:[address] [facility] SUP NOTIFIED OF TRANSFER DCP- Discharge Planning Updated by [id number]: Airam Walker on 09/02/19 4:[address] MCKEON HE WANTS THE PATIENT TO BE DISCHARGED TO [facility] WITH UROLOGY TO DR TERRELL. I STARTED THE PROCESS AND SPOKE WITH FELICE AT [facility]. SHE WILL FAX A TRANSFER BACK AGREEMENT AND START THE PROCESS TO GET HIM TRANSFERED Last DP export: 09/02/19 4:28 p Patient Name: EYAL LOGAN Page 05608 at 1151 All edits/amendments must be made on the electronic document DICTATION DATE: 09/03/19 1150 CARPENTER INSPECTOR: WIL 09/03/19 1150 RPT#: [id number] DC DATE: STATUS: ADM IN [facility] [address] [place] [address] END OF REPORT
[2019-09-03 13:03] VITALS: BP 134/85
--- NOTE | 2019-09-03 13:28 | MORECARE ---
CASE MANAGEMENT DISCHARGE SUMMARY PATIENT: EYAL LOGAN UNIT: [id number] ADM DATE: 09/01/19 AGE: 69 : 52 SEX: M ROOM/BED: D.2210 AUTHOR: DILIA MOORE PHYSICIAN: REFERRING PHYSICIAN: JENNY MCKEON MD DATE OF SERVICE: 09/03/19 Discharge Plan Patient Name: EYAL LOGAN [facility] [facility] 1950 Planned Disposition: Anticipated Discharge Date: Discharge Date: Expected LOS: Initial Reviewer: [id number] Initial Review Date: 09/02/2019 Generated: 09/03/19 2:27 pm Comments DCP- Discharge Planning Updated by [email or web address]: Airam Walker on 09/03/19 12:[address] Spoke with Pura at [facility] bed control. There are no rooms at this time. He is on the list for a room. DCP- Discharge Planning Updated by [email or web address]: Airam Walker on 09/03/19 10:[address] Patiene will be transferred to [facility], accepting MD is Dr Hunt he will go via EMS DCP- Discharge Planning Updated by [id number]: Airam Walker on 09/02/19 4:[address] [facility] SUP NOTIFIED OF TRANSFER DCP- Discharge Planning Updated by [id number]: Airam Walker on 09/02/19 4:[address] MCKEON HE WANTS THE PATIENT TO BE DISCHARGED TO [facility] WITH UROLOGY TO DR TERRELL. I STARTED THE PROCESS AND SPOKE WITH PURA AT [facility]. SHE WILL FAX A TRANSFER BACK AGREEMENT AND START THE PROCESS TO GET HIM TRANSFERED Last DP export: 09/03/19 10:51 a Patient Name: EYAL LOGAN Page 21970 at 1328 All edits/amendments must be made on the electronic document DICTATION DATE: 09/03/19 1327 HARNESS BRUSHER: WIL 09/03/19 1327 RPT#: [id number] DC DATE: STATUS: ADM IN [facility] [address] [place] [address] END OF REPORT
[2019-09-03 19:44] VITALS: BP 130/89
--- NOTE | 2019-09-03 23:10 | NUR ---
PT SITTING UP IN BED, PT IS VERY CONFUSED TONIGHT, CALLED DAUGHTER AND STATED HE CAN SEE HER IN THE GARDEN OUTSIDE, TOLD SON HE WAS AT [facility], WHEN I WAS IN PT ROOM TO HANG MEDICATION PT ASKED IF PERSON IN CHAIR NEXT TO HIM WAS OK AND THAT HE LOOKED DISORIENTED AND ABOUT TO FALL OUT OF CHAIR. EXPLAINED TO PT HE IS IN [facility] ROOM AND HE DOES NOT HAVE A VISTOR AT BEDSIDE, SAT IN CHAIR TO SHOW PT NO ONE IN ROOM BUT HE AND I. WILL CONTINUE TO REORIENT PT. CONTINUE WITH PLAN OF CARE
[2019-09-04] VITALS: BP 149/86
--- NOTE | 2019-09-04 03:58 | NUR ---
I have reviewed this patient and I concur with the Shift Assessment completed by the Licensed Practical Nurse today this shift.
[2019-09-04 04:00] VITALS: BP 124/54
[2019-09-04 05:01] LABS: BASOPHILS 0.7 % (0-2); EOSINOPHILS 11.3 % (0-7); HEMATOCRIT 39.7 % (42.0-54.0); HEMOGLOBIN 12.9 g/dL (13.5-17.5); IMMATURE GRANULOCYTES 0.3 % (0-5); LYMPHOCYTES 23.5 % (15-50); MCH 31.1 pg (26.0-34.0); MCHC 32.5 g/dL (31.0-37.0); MEAN PLATELET VOLUME 9.9 fL (7.4-10.4); MONOCYTES 11.1 % (2-11); NEUTROPHILS 53.1 % (40-80); PLATELET COUNT 245 10x3/uL (130-400); RBC 4.15 10x6/uL (4.20-6.10); RDW 15.5 % (11.5-14.5)
[2019-09-04 05:12] LABS: MCV 95.7 fL (80.0-100.0)
[2019-09-04 05:27] LABS: CALC OSMOLALITY 275 mosm/kg (275-300); CALCIUM 8.7 mg/dL (8.5-10.1); CARBON DIOXIDE 23.6 mmol/L (21.0-32.0); CHLORIDE - SERUM 105 mmol/L (98-107); GLUCOSE 94 mg/dL (74-106); MAGNESIUM - SERUM 1.5 mg/dL (1.8-2.4); PHOSPHOROUS 3.2 mg/dL (2.5-4.9); SODIUM 139 mmol/L (136-145); UREA NITROGEN 7 mg/dL (7-18); eGFR NON AFRICAN AMERICAN 79 mL/min (90-120)
[2019-09-04 05:29] LABS: POTASSIUM - SERUM 3.1 mmol/L (3.5-5.1)
--- NOTE | 2019-09-04 06:02 | NUR ---
PT MAG AND K+ WERE LOW THIS MORNING, WILL REPLETE FOLLOWING EP
--- NOTE | 2019-09-04 08:10 | MORECARE ---
CASE MANAGEMENT DISCHARGE SUMMARY PATIENT: EYAL LOGAN UNIT: [id number] ADM DATE: 09/01/19 AGE: 69 : 52 SEX: M ROOM/BED: D.2210 AUTHOR: DILIA MOORE PHYSICIAN: REFERRING PHYSICIAN: JENNY MCKEON MD DATE OF SERVICE: 09/04/19 Discharge Plan Patient Name: EYAL LOGAN Facility: [facility]:[place] : 1950 Planned Disposition: Anticipated Discharge Date: Discharge Date: Expected LOS: Initial Reviewer: [id number] Initial Review Date: 09/02/2019 Generated: 09/04/19 9:10 am Comments DCP- Discharge Planning Updated by [id number]: Airam Walker on 09/04/19 7:[address] PER PURA BED CONTROL AT [facility], THEY ARE FULL AND PATIENT IS STILL ON THE LIST FOR TRANSFER DCP- Discharge Planning Updated by [id number]: Airam Walker on 09/03/19 12:[address] Spoke with Pura at [facility] bed control. There are no rooms at this time. He is on the list for a room. DCP- Discharge Planning Updated by [id number]: Airam Walker on 09/03/19 10:[address] Patiene will be transferred to [facility], accepting MD is Dr Hunt he will go via EMS DCP- Discharge Planning Updated by [id number]: Airam Walker on 09/02/19 4:[address] [facility] SUP NOTIFIED OF TRANSFER DCP- Discharge Planning Updated by [id number]: Airam Walker on 09/02/19 4:[address] MCKEON HE WANTS THE PATIENT TO BE DISCHARGED TO [facility] WITH UROLOGY TO DR TERRELL. I STARTED THE PROCESS AND SPOKE WITH PURA AT [facility]. SHE WILL FAX A TRANSFER BACK AGREEMENT AND START THE PROCESS TO GET HIM TRANSFERED Last DP export: 09/03/19 12:28 p Patient Name: EYAL LOGAN Page 65538 at 0810 All edits/amendments must be made on the electronic document DICTATION DATE: 09/04/19809 GAS WELDER: WIL 09/04/19809 RPT#: [id number] DC DATE: STATUS: ADM IN [facility] [address] [place] [address] END OF REPORT
[2019-09-04 08:45] VITALS: BP 137/99
--- NOTE | 2019-09-04 10:33 | NUR ---
RESTING IN BED, NO DISTRESS NOTED, O2 PER NC AT 2L, RASH TO BODY, BENADRY GIVEN IV FOR RASH, WESTON TO GRAVITY, MIDLINE IV TO R UPPER ARM, TELE IN PLACE
[2019-09-04 13:06] VITALS: BP 138/109
[2019-09-04 16:33] VITALS: BP 152/103
[2019-09-04 20:00] VITALS: BP 114/78
[2019-09-05] VITALS: BP 150/102
--- NOTE | 2019-09-05 00:04 | NUR ---
PT IS MORE ALERT AND ORIENTED TODAY, HAD BM AT BEGINING OF SHIFT, NO S/SX OF DISTRESS, EMPTIED 1300 FROM WESTON, CL IN REACH CONTINUE WITH PLAN OF CARE
[2019-09-05 04:00] VITALS: BP 130/86
--- NOTE | 2019-09-05 04:55 | NUR ---
I have reviewed this patient and I concur with the Shift Assessment completed by the Licensed Practical Nurse today this shift.
[2019-09-05 06:41] LABS: BASOPHILS 0.9 % (0-2); EOSINOPHILS 14.8 % (0-7); HEMATOCRIT 38.9 % (42.0-54.0); HEMOGLOBIN 12.4 g/dL (13.5-17.5); IMMATURE GRANULOCYTES 0.5 % (0-5); LYMPHOCYTES 24.1 % (15-50); MCHC 31.9 g/dL (31.0-37.0); MCV 97.3 fL (80.0-100.0); MEAN PLATELET VOLUME 10.2 fL (7.4-10.4); MONOCYTES 12.1 % (2-11); NEUTROPHILS 47.6 % (40-80); PLATELET COUNT 218 10x3/uL (130-400); RDW 15.4 % (11.5-14.5); WBC 6.4 10x3/uL (4.8-10.8)
[2019-09-05 06:58] LABS: CALCIUM 8.4 mg/dL (8.5-10.1); CARBON DIOXIDE 23.7 mmol/L (21.0-32.0); CHLORIDE - SERUM 107 mmol/L (98-107); CREATININE - SERUM 0.9 mg/dL (0.6-1.3); GLUCOSE 88 mg/dL (74-106); MAGNESIUM - SERUM 1.5 mg/dL (1.8-2.4); PHOSPHOROUS 3.3 mg/dL (2.5-4.9); SODIUM 141 mmol/L (136-145); eGFR NON AFRICAN AMERICAN 89 mL/min (90-120)
[2019-09-05 06:59] LABS: CALC OSMOLALITY 276 mosm/kg (275-300); POTASSIUM - SERUM 3.7 mmol/L (3.5-5.1); UREA NITROGEN 4 mg/dL (7-18)
--- NOTE | 2019-09-05 07:15 | NUR ---
PT IS RESTING IN BED WITH EYES OPEN. RESPIRATIONS ARE EVEN AND UNLABORED. PT IS AAOX 4 AND ANSWERS ALL QUESTIONS APPROPRIATLEY. WESTON CATHETER NOTED AND DRAINING WITHOUT DIFFICULTY. DARK YELLOW URINE NOTED TO COLLECTION BAG. RIGHT UPPER ARM MIDLINE INFUSING PER ORDER WITHOUT DIFFICULTY. PT DENIES PRESENCE OF N/V AND REPORTS PAIN TO BACK. WILL ADDRESS. SEE EMAR. BED IS IN THE LOWEST POSITION. CALL LIGHT AND BEDSIDE TABLE ARE WITHIN REACH. SIDE RAILS X 2. PT DENIES FURTHER NEEDS. WILL CONT TO MONITOR.
[2019-09-05 10:59] VITALS: BP 147/82
--- NOTE | 2019-09-05 12:10 | MORECARE ---
CASE MANAGEMENT DISCHARGE SUMMARY PATIENT: EYAL LOGAN UNIT: [id number] ADM DATE: 09/01/19 AGE: 69 : 52 SEX: M ROOM/BED: D.2210 AUTHOR: TERESA,DOC PHYSICIAN: REFERRING PHYSICIAN: JENNY MCKEON MD DATE OF SERVICE: 09/05/19 Discharge Plan Patient Name: EYAL LOGAN Facility: [facility]:[place] : 1950 Planned Disposition: Anticipated Discharge Date: Discharge Date: Expected LOS: Initial Reviewer: [id number] Initial Review Date: 09/02/2019 Generated: 09/05/19 1:10 pm Comments DCP- Discharge Planning Updated by [id number]: Airam Walker on 09/05/19 11:[address] I SPOKE WITH FLAVIO AT [facility], HE IS STILL ON THE LIST. SHE STATED THAT SHE THERE IS 8 PEOPLE IN THE ER WAITING FOR BEDS. I WILL CALL DR MCKEON AND SEE WHAT HE WANTS TO DO DCP- Discharge Planning Updated by [id number]: Airam Walker on 09/04/19 7:[address] PER PURA BED CONTROL AT [facility], THEY ARE FULL AND PATIENT IS STILL ON THE LIST FOR TRANSFER DCP- Discharge Planning Updated by [email or web address]: Airam Walker on 09/03/19 12:[address] Spoke with Pura at [facility] bed control. There are no rooms at this time. He is on the list for a room. DCP- Discharge Planning Updated by [id number]: Airam Walker on 09/03/19 10:[address] Patiene will be transferred to [facility], accepting MD is Dr Hunt he will go via EMS DCP- Discharge Planning Updated by [email or web address]: Airam Walker on 09/02/19 4:[address] [facility] NOTIFIED OF TRANSFER DCP- Discharge Planning Updated by [id number]: Airam Walker on 09/02/19 4:[address] MCKEON HE WANTS THE PATIENT TO BE DISCHARGED TO [facility] WITH UROLOGY TO DR TERRELL. I STARTED THE PROCESS AND SPOKE WITH PURA AT [facility]. SHE WILL FAX A TRANSFER BACK AGREEMENT AND START THE PROCESS TO GET HIM TRANSFERED Last DP export: 09/04/19 7:10 a Patient Name: EYAL LOGAN Page 35340 at 1210 All edits/amendments must be made on the electronic document DICTATION DATE: 09/05/19 1210 MEDICATION ADMINISTRATION PROFESSIONAL: WIL 09/05/19 1210 RPT#: [id number] DC DATE: STATUS: ADM IN [facility] [address] [place] [address] END OF REPORT
--- NOTE | 2019-09-05 12:17 | MORECARE ---
CASE MANAGEMENT DISCHARGE SUMMARY PATIENT: EYAL LOGAN UNIT: [id number] ADM DATE: 09/01/19 AGE: 69 : 52 SEX: M ROOM/BED: D.2210 AUTHOR: TERESA,DOC PHYSICIAN: REFERRING PHYSICIAN: JENNY MCKEON MD DATE OF SERVICE: 09/05/19 Discharge Plan Patient Name: EYAL LOGAN Facility: [facility]:[place] : 1950 Planned Disposition: Anticipated Discharge Date: Discharge Date: Expected LOS: Initial Reviewer: [email or web address] Initial Review Date: 09/02/2019 Generated: 09/05/19 1:16 pm Comments DCP- Discharge Planning Updated by [id number]: Airam Walker on 09/05/19 11:[address]PO[address] MCKEON, HE STATED TO CANCEL THE TRANSFER THAT HE COULD TAKE CARE OF IT DCP- Discharge Planning Updated by [id number]: Airam Walker on 09/05/19 11:[address] I SPOKE WITH FLAVIO AT [facility], HE IS STILL ON THE LIST. SHE STATED THAT SHE THERE IS 8 PEOPLE IN THE ER WAITING FOR BEDS. I WILL CALL DR MCKEON AND SEE WHAT HE WANTS TO DO DCP- Discharge Planning Updated by [id number]: Airam Walker on 09/04/19 7:[address] PER PURA BED CONTROL AT [facility], THEY ARE FULL AND PATIENT IS STILL ON THE LIST FOR TRANSFER DCP- Discharge Planning Updated by [email or web address]: Airam Walker on 09/03/19 12:[address] Spoke with Pura at [facility] bed control. There are no rooms at this time. He is on the list for a room. DCP- Discharge Planning Updated by [id number]: Airam Walker on 09/03/19 10:[address] Patiene will be transferred to [facility], accepting MD is Dr Hunt he will go via EMS DCP- Discharge Planning Updated by [id number]: Airam Walker on 09/02/19 4:[address] [facility] SU[facility] NOTIFIED OF TRANSFER DCP- Discharge Planning Updated by [email or web address]: Airam Walker on 09/02/19 4:[address] MCKEON HE WANTS THE PATIENT TO BE DISCHARGED TO [facility] WITH UROLOGY TO DR TERRELL. I STARTED THE PROCESS AND SPOKE WITH PURA AT [facility]. SHE WILL FAX A TRANSFER BACK AGREEMENT AND START THE PROCESS TO GET HIM TRANSFERED Last DP export: 09/05/19 11:10 a Patient Name: EYAL LOGAN Page 19843 at 1217 All edits/amendments must be made on the electronic document DICTATION DATE: 09/05/19 1216 LOCATOR: WIL 09/05/19 1216 RPT#: [id number] DC DATE: STATUS: ADM IN [facility] [address] [place] [address] END OF REPORT
[2019-09-05 13:16] VITALS: BP 130/81
--- NOTE | 2019-09-05 13:46 | MORECARE ---
CASE MANAGEMENT DISCHARGE SUMMARY PATIENT: EYAL LOGAN UNIT: [id number] ADM DATE: 09/01/19 AGE: 69 : 52 SEX: M ROOM/BED: D.2210 AUTHOR: TERESA,DOC PHYSICIAN: REFERRING PHYSICIAN: JENNY MCKEON MD DATE OF SERVICE: 09/05/19 Discharge Plan Patient Name: EYAL LOGAN Facility: [facility]:[place] : 1950 Planned Disposition: Anticipated Discharge Date: Discharge Date: Expected LOS: Initial Reviewer: [email or web address] Initial Review Date: 09/02/2019 Generated: 09/05/19 2:46 pm Comments DCP- Discharge Planning Updated by [email or web address]: Airam Walker on 09/05/19 12:[address] DAUGHTER CALLED AND QUESTIONED THE PLAN OF CARE, I GAVE DR MCKEON THE DAUGHTERS NUMBER AND HE WAS GOING TO CALL ILDEFONSO AND ANSWER HER QUESTIONS. ILDEFONSO [phone] DCP- Discharge Planning Updated by [id number]: Airam Walker on 09/05/19 11:[address]PO[address] MCKEON, HE STATED TO CANCEL THE TRANSFER THAT HE COULD TAKE CARE OF IT DCP- Discharge Planning Updated by [id number]: Airam Walker on 09/05/19 11:[address] I SPOKE WITH FLAVIO AT [facility], HE IS STILL ON THE LIST. SHE STATED THAT SHE THERE IS 8 PEOPLE IN THE ER WAITING FOR BEDS. I WILL CALL DR MCKEON AND SEE WHAT HE WANTS TO DO DCP- Discharge Planning Updated by [email or web address]: Airam Walker on 09/04/19 7:[address] PER PURA BED CONTROL AT [facility], THEY ARE FULL AND PATIENT IS STILL ON THE LIST FOR TRANSFER DCP- Discharge Planning Updated by [id number]: Airam Walker on 09/03/19 12:[address] Spoke with Pura at [facility] bed control. There are no rooms at this time. He is on the list for a room. DCP- Discharge Planning Updated by [id number]: Airam Walker on 09/03/19 10:[address] Patiene will be transferred to [facility], accepting MD is Dr Hunt he will go via EMS DCP- Discharge Planning Updated by [id number]: Airam Walker on 09/02/19 4:[address] [facility] NOTIFIED OF TRANSFER DCP- Discharge Planning Updated by [id number]: Airam Walker on 09/02/19 4:[address] MCKEON HE WANTS THE PATIENT TO BE DISCHARGED TO [facility] WITH UROLOGY TO DR TERRELL. I STARTED THE PROCESS AND SPOKE WITH PURA AT [facility]. SHE WILL FAX A TRANSFER BACK AGREEMENT AND START THE PROCESS TO GET HIM TRANSFERED Last DP export: 09/05/19 11:17 a Patient Name: EYAL LOGAN Page 24488 at 1346 All edits/amendments must be made on the electronic document DICTATION DATE: 09/05/19 1346 RUBBER GRINDER: WIL 09/05/19 1346 RPT#: [id number] DC DATE: STATUS: ADM IN [facility] [address] [place] [address] END OF REPORT
[2019-09-05 18:02] VITALS: BP 154/85
--- NOTE | 2019-09-05 19:00 | NUR ---
ASSUMED CARE OF PATIENT, PATIENT AAOX4, RESP EVEN AND NON LABORED, O2@2L VIA NC IN USE, PATIENT BEDFACT, INCONTINENT OF STOOL, IV INFUSING WITHOUT COMPLICATIONS, WILL CONTINUE TO MONITOR PATIENT, CALL LIGHT WITHIN REACH
[2019-09-05 20:00] VITALS: BP 149/97
[2019-09-06] VITALS: BP 148/86
[2019-09-06 04:00] VITALS: BP 146/55
[2019-09-06 05:27] LABS: BASOPHILS 1.2 % (0-2); EOSINOPHILS 13.8 % (0-7); HEMATOCRIT 36.7 % (42.0-54.0); HEMOGLOBIN 12.3 g/dL (13.5-17.5); IMMATURE GRANULOCYTES 0.5 % (0-5); LYMPHOCYTES 26.4 % (15-50); MCH 32.6 pg (26.0-34.0); MCHC 33.5 g/dL (31.0-37.0); MCV 97.3 fL (80.0-100.0); MEAN PLATELET VOLUME 10.1 fL (7.4-10.4); MONOCYTES 10.6 % (2-11); NEUTROPHILS 47.5 % (40-80); PLATELET COUNT 196 10x3/uL (130-400); RBC 3.77 10x6/uL (4.20-6.10); RDW 15.3 % (11.5-14.5); WBC 5.9 10x3/uL (4.8-10.8)
[2019-09-06 06:03] LABS: CALC OSMOLALITY 279 mosm/kg (275-300); CALCIUM 8.1 mg/dL (8.5-10.1); CARBON DIOXIDE 24.8 mmol/L (21.0-32.0); CHLORIDE - SERUM 108 mmol/L (98-107); GLUCOSE 105 mg/dL (74-106); MAGNESIUM - SERUM 1.5 mg/dL (1.8-2.4); PHOSPHOROUS 3.6 mg/dL (2.5-4.9); SODIUM 142 mmol/L (136-145); UREA NITROGEN 3 mg/dL (7-18); eGFR NON AFRICAN AMERICAN 79 mL/min (90-120)
[2019-09-06 07:32] LABS: POTASSIUM - SERUM 2.9 mmol/L (3.5-5.1)
--- NOTE | 2019-09-06 08:40 | MORECARE ---
CASE MANAGEMENT DISCHARGE SUMMARY PATIENT: EYAL LOGAN UNIT: [id number] ADM DATE: 09/01/19 AGE: 69 : 52 SEX: M ROOM/BED: D.2210 AUTHOR: TERESA,DOC PHYSICIAN: REFERRING PHYSICIAN: JENNY MCKEON MD DATE OF SERVICE: 09/06/19 Discharge Plan Patient Name: EYAL LOGAN Facility: [facility]:[place] : 1950 Planned Disposition: Anticipated Discharge Date: Discharge Date: Expected LOS: Initial Reviewer: [id number] Initial Review Date: 09/02/2019 Generated: 09/06/19 9:39 am Comments DCP- Discharge Planning Updated by [id number]: Airam Walker on 09/05/19 12:[address] DAUGHTER CALLED AND QUESTIONED THE PLAN OF CARE, I GAVE DR MCKEON THE DAUGHTERS NUMBER AND HE WAS GOING TO CALL ILDEFONSO AND ANSWER HER QUESTIONS. ILDEFONSO [phone] DCP- Discharge Planning Updated by [email or web address]: Airam Walker on 09/05/19 11:[address]PO[address] MCKEON, HE STATED TO CANCEL THE TRANSFER THAT HE COULD TAKE CARE OF IT DCP- Discharge Planning Updated by [id number]: Airam Walker on 09/05/19 11:[address] I SPOKE WITH FLAVIO AT [facility], HE IS STILL ON THE LIST. SHE STATED THAT SHE THERE IS 8 PEOPLE IN THE ER WAITING FOR BEDS. I WILL CALL DR MCKEON AND SEE WHAT HE WANTS TO DO DCP- Discharge Planning Updated by [id number]: Airam Walker on 09/04/19 7:[address] PER PURA BED CONTROL AT [facility], THEY ARE FULL AND PATIENT IS STILL ON THE LIST FOR TRANSFER DCP- Discharge Planning Updated by [id number]: Airam Walker on 09/03/19 12:[address] Spoke with Pura at [facility] bed control. There are no rooms at this time. He is on the list for a room. DCP- Discharge Planning Updated by [email or web address]: Airam Walker on 09/03/19 10:[address] Patiene will be transferred to [facility], accepting MD is Dr Hunt he will go via EMS DCP- Discharge Planning Updated by [id number]: Airam Walker on 09/02/19 4:[address] [facility] NOTIFIED OF TRANSFER DCP- Discharge Planning Updated by [id number]: Airam Walker on 09/02/19 4:[address] MCKEON HE WANTS THE PATIENT TO BE DISCHARGED TO [facility] WITH UROLOGY TO DR TERRELL. I STARTED THE PROCESS AND SPOKE WITH PURA AT [facility]. SHE WILL FAX A TRANSFER BACK AGREEMENT AND START THE PROCESS TO GET HIM TRANSFERED External Providers External Provider: [facility] Next Contact Date: Service Request Date: Service Type: Resolution: Reviewer: Comments: Last DP export: 09/05/19 12:46 p Patient Name: EYAL LOGAN Page 23600 at 0840 All edits/amendments must be made on the electronic document DICTATION DATE: 09/06/19838 ROCKET SCIENTIST: WIL 09/06/19838 RPT#: [id number] DC DATE: STATUS: ADM IN [facility] [address] [place] [address] END OF REPORT
--- NOTE | 2019-09-06 08:58 | MORECARE ---
CASE MANAGEMENT DISCHARGE SUMMARY PATIENT: EYAL LOGAN UNIT: [id number] ADM DATE: 09/01/19 AGE: 69 : 52 SEX: M ROOM/BED: D.2210 AUTHOR: TERESA,DOC PHYSICIAN: REFERRING PHYSICIAN: JENNY MCKEON MD DATE OF SERVICE: 09/06/19 Discharge Plan Patient Name: EYAL LOGAN Facility: [facility]:[place] : 1950 Planned Disposition: Anticipated Discharge Date: Discharge Date: Expected LOS: Initial Reviewer: [id number] Initial Review Date: 09/02/2019 Generated: 09/06/19 9:58 am Comments DCP- Discharge Planning Updated by [id number]: Airam Walker on 09/06/19 7:[address] CALLED [facility] SPOKE WITH ROB LET HER KNOW ABOUT DC ORDERS, COVID PENDING FOR PLACEMENT THE RESULTS SHOULD BE BACK BY 3:00PM DCP- Discharge Planning Updated by [email or web address]: Airam Walker on 09/05/19 12:[address] DAUGHTER CALLED AND QUESTIONED THE PLAN OF CARE, I GAVE DR MCKEON THE DAUGHTERS NUMBER AND HE WAS GOING TO CALL ILDEFONSO AND ANSWER HER QUESTIONS. ILDEFONSO [phone] DCP- Discharge Planning Updated by [id number]: Airam Walker on 09/05/19 11:[address]PO[address] MCKEON, HE STATED TO CANCEL THE TRANSFER THAT HE COULD TAKE CARE OF IT DCP- Discharge Planning Updated by [id number]: Airam Walker on 09/05/19 11:[address] I SPOKE WITH FLAVIO AT [facility], HE IS STILL ON THE LIST. SHE STATED THAT SHE THERE IS 8 PEOPLE IN THE ER WAITING FOR BEDS. I WILL CALL DR MCKEON AND SEE WHAT HE WANTS TO DO DCP- Discharge Planning Updated by [id number]: Airam Walker on 09/04/19 7:[address] PER PURA BED CONTROL AT [facility], THEY ARE FULL AND PATIENT IS STILL ON THE LIST FOR TRANSFER DCP- Discharge Planning Updated by [email or web address]: Airam Walker on 09/03/19 12:[address] Spoke with Pura at [facility] bed control. There are no rooms at this time. He is on the list for a room. DCP- Discharge Planning Updated by [email or web address]: Airam Walker on 09/03/19 10:[address] Patiene will be transferred to [facility], accepting MD is Dr Hunt he will go via EMS DCP- Discharge Planning Updated by [id number]: Airam Walker on 09/02/19 4:[address] [facility] NOTIFIED OF TRANSFER DCP- Discharge Planning Updated by [email or web address]: Airam Walker on 09/02/19 4:[address] MCKEON HE WANTS THE PATIENT TO BE DISCHARGED TO [facility] WITH UROLOGY TO DR TERRELL. I STARTED THE PROCESS AND SPOKE WITH PURA AT [facility]. SHE WILL FAX A TRANSFER BACK AGREEMENT AND START THE PROCESS TO GET HIM TRANSFERED Last DP export: 09/06/19 7:40 a Patient Name: EYAL LOGAN Page 94683 at 0858 All edits/amendments must be made on the electronic document DICTATION DATE: 09/06/19857 WOOD HEEL FITTER MACHINE: WIL 09/06/19857 RPT#: [id number] DC DATE: STATUS: ADM IN [facility] [address] [place] [address] END OF REPORT
--- NOTE | 2019-09-06 09:00 | NUR ---
ALERT AND ORIENTED X4. PERICARE DONE WITH EACH INCONT. EPISODE WITH LARGE LOOOSE BM NOTED. LANASEPTIC APPLIED TO EXCORIATED AREA TO COCCYX. WESTON CATH PATENT WITH MAHSA URINE NOTED. ELCTROLYTES REPLACED PER PROTOCOL. MIDLINE INTACT TO LUE WITH NO S/S OF INFECTION/INFILTRATION. ENCOURAGED TO USE CALL LIGHT FOR ASSIST
[2019-09-06 09:46] VITALS: BP 137/98
[2019-09-06 12:15] VITALS: BP 144/93
--- NOTE | 2019-09-06 12:30 | MORECARE ---
CASE MANAGEMENT DISCHARGE SUMMARY PATIENT: YEAL LOGAN UNIT: [id number] ADM DATE: 09/01/19 AGE: 69 : 52 SEX: M ROOM/BED: D.2210 AUTHOR: TERESA,DOC PHYSICIAN: REFERRING PHYSICIAN: JENNY MCKEON MD DATE OF SERVICE: 09/06/19 Discharge Plan Patient Name: EYAL LOGAN Facility: [facility]:[place] : 1950 Planned Disposition: Anticipated Discharge Date: Discharge Date: Expected LOS: Initial Reviewer: [id number] Initial Review Date: 09/02/2019 Generated: 09/06/19 1:30 pm Comments DCP- Discharge Planning Updated by [email or web address]: Airam Walker on 09/06/19 11:[address] Patient will be discharging back to [facility]. He will be going to a skilled bed. IMM served and explained. I will call his daughter and let her know. His COVID was Neg. He will transport via [facility] DCP- Discharge Planning Updated by [id number]: Airam Walker on 09/06/19 7:[address] CALLED [facility] SPOKE WITH ROB LET HER KNOW ABOUT DC ORDERS, COVID PENDING FOR PLACEMENT THE RESULTS SHOULD BE BACK BY 3:00PM DCP- Discharge Planning Updated by [id number]: Airam Walker on 09/05/19 12:[address] DAUGHTER CALLED AND QUESTIONED THE PLAN OF CARE, I GAVE DR MCKEON THE DAUGHTERS NUMBER AND HE WAS GOING TO CALL ILDEFONSO AND ANSWER HER QUESTIONS. ILDEFONSO [phone] DCP- Discharge Planning Updated by [id number]: Airam Walker on 09/05/19 11:[address]PO[address] MCKEON, HE STATED TO CANCEL THE TRANSFER THAT HE COULD TAKE CARE OF IT DCP- Discharge Planning Updated by [id number]: Airam Walker on 09/05/19 11:[address] I SPOKE WITH FLAVIO AT [facility], HE IS STILL ON THE LIST. SHE STATED THAT SHE THERE IS 8 PEOPLE IN THE ER WAITING FOR BEDS. I WILL CALL DR MCKEON AND SEE WHAT HE WANTS TO DO DCP- Discharge Planning Updated by [id number]: Airam Walker on 09/04/19 7:[address] PER PURA BED CONTROL AT [facility], THEY ARE FULL AND PATIENT IS STILL ON THE LIST FOR TRANSFER DCP- Discharge Planning Updated by [id number]: Airam Walker on 09/03/19 12:[address] Spoke with Pura at [facility] bed control. There are no rooms at this time. He is on the list for a room. DCP- Discharge Planning Updated by [id number]: Airam Walker on 09/03/19 10:[address] Patiene will be transferred to [facility], accepting MD is Dr Hunt he will go via EMS DCP- Discharge Planning Updated by [id number]: Airam Walker on 09/02/19 4:[address] [facility] NOTIFIED OF TRANSFER DCP- Discharge Planning Updated by [email or web address]: Airam Walker on 09/02/19 4:[address] MCKEON HE WANTS THE PATIENT TO BE DISCHARGED TO [facility] WITH UROLOGY TO DR TERRELL. I STARTED THE PROCESS AND SPOKE WITH PURA AT [facility]. SHE WILL FAX A TRANSFER BACK AGREEMENT AND START THE PROCESS TO GET HIM TRANSFERED Coverage Notice Reviewer: [id number] - Airam Walker Notice Issued Date-Time: 09/06/2019 12:20 Notice Type: IM Discharge Notice Notice Delivered To: Patient Relationship to Patient: Shipyard Painter Name: Delivery Method: HAND - Hand Delivered Vijaya Days: Prior Verbal Notification: Recipient Understood Notice: Yes Recipient Signature: Yes Med Rec Note Co-signed by Attending: Coverage Notice Comment: imm served and explained Last DP export: 09/06/19 7:58 a Patient Name: EYAL LOGAN Page 65613 at 1230 All edits/amendments must be made on the electronic document DICTATION DATE: 09/06/19 1230 FIELD LOGISTICS COORDINATOR: WIL 09/06/19 1230 RPT#: [id number] DC DATE: STATUS: ADM IN [facility] [address] [place] [address] END OF REPORT
[2019-09-06] MEDS ORDERED: VIBRAMYCIN 100100 MG PO (14:01)
--- NOTE | 2019-09-06 15:36 | NUR ---
IV DISCONTINUED AND VERBALIZED UNDERSTANDING OF DISCHARGE INSTRUCTIONS.[facility] HERE FOR TRANSPORT WITH STAFF X2. STABLE AT TIME OF DEPARTURE. REPORT CALLED TO FRAN BRAGG RN WITH DISCHARGE PAPERS GIVEN TO AMBULANCE STAFF.
--- NOTE | 2019-09-06 16:59 | MORECARE ---
CASE MANAGEMENT DISCHARGE SUMMARY PATIENT: EYAL LOGAN UNIT: [id number] ADM DATE: 09/01/19 AGE: 69 : 52 SEX: M ROOM/BED: D.2210 AUTHOR: TERESA,DOC PHYSICIAN: REFERRING PHYSICIAN: JENNY MCKEON MD DATE OF SERVICE: 09/06/19 Discharge Plan Patient Name: EYAL LOGAN Facility: [facility]:[place] : 1950 Planned Disposition: Anticipated Discharge Date: Discharge Date: 09/06/2019 Expected LOS: Initial Reviewer: [id number] Initial Review Date: 09/02/2019 Generated: 09/06/19 5:59 pm Comments DCP- Discharge Planning Updated by [id number]: Airam Walker on 09/06/19 11:[address] Patient will be discharging back to [facility]. He will be going to a skilled bed. IMM served and explained. I will call his daughter and let her know. His COVID was Neg. He will transport via [facility] DCP- Discharge Planning Updated by [id number]: Airam Walker on 09/06/19 7:[address] CALLED [facility] SPOKE WITH ROB LET HER KNOW ABOUT DC ORDERS, COVID PENDING FOR PLACEMENT THE RESULTS SHOULD BE BACK BY 3:00PM DCP- Discharge Planning Updated by [id number]: Airam Walker on 09/05/19 12:[address] DAUGHTER CALLED AND QUESTIONED THE PLAN OF CARE, I GAVE DR MCKEON THE DAUGHTERS NUMBER AND HE WAS GOING TO CALL ILDEFONSO AND ANSWER HER QUESTIONS. ILDEFONSO [phone] DCP- Discharge Planning Updated by [id number]: Airam Walker on 09/05/19 11:[address]PO[address] DR MCKEON, HE STATED TO CANCEL THE TRANSFER THAT HE COULD TAKE CARE OF IT DCP- Discharge Planning Updated by [id number]: Airam Walker on 09/05/19 11:[address] I SPOKE WITH FLAVIO AT [facility], HE IS STILL ON THE LIST. SHE STATED THAT SHE THERE IS 8 PEOPLE IN THE ER WAITING FOR BEDS. I WILL CALL DR MCKEON AND SEE WHAT HE WANTS TO DO DCP- Discharge Planning Updated by [id number]: Airam Walker on 09/04/19 7:[address] PER PURA BED CONTROL AT [facility], THEY ARE FULL AND PATIENT IS STILL ON THE LIST FOR TRANSFER DCP- Discharge Planning Updated by [email or web address]: Airam Walker on 09/03/19 12:[address] Spoke with Pura at [facility] bed control. There are no rooms at this time. He is on the list for a room. DCP- Discharge Planning Updated by [id number]: Airam Walker on 09/03/19 10:[address] Patiene will be transferred to [facility], accepting MD is Dr Hunt he will go via EMS DCP- Discharge Planning Updated by [id number]: Airam Walker on 09/02/19 4:[address] [facility] NOTIFIED OF TRANSFER DCP- Discharge Planning Updated by [id number]: Airam Walker on 09/02/19 4:[address] MCKEON HE WANTS THE PATIENT TO BE DISCHARGED TO [facility] WITH UROLOGY TO DR TERRELL. I STARTED THE PROCESS AND SPOKE WITH PURA AT [facility]. SHE WILL FAX A TRANSFER BACK AGREEMENT AND START THE PROCESS TO GET HIM TRANSFERED Coverage Notice Reviewer: [id number] - Airam Walker Notice Issued Date-Time: 09/06/2019 12:20 Notice Type: IM Discharge Notice Notice Delivered To: Patient Relationship to Patient: Assistant Production Editor Name: Delivery Method: HAND - Hand Delivered Vijaya Days: Prior Verbal Notification: Recipient Understood Notice: Yes Recipient Signature: Yes Med Rec Note Co-signed by Attending: Coverage Notice Comment: imm served and explained Last DP export: 09/06/19 11:30 a Patient Name: EYAL LOGAN Page 42997 at 1659 All edits/amendments must be made on the electronic document DICTATION DATE: 09/06/191658 ENGINEERING LEADER: WIL 09/06/191658 RPT#: [id number] DC DATE:09/06/19 STATUS: DIS IN [facility] [address] [place] [address] END OF REPORT
== END 2019-09-06 15:41 | DRG 388 ==
LOC: D.ER 20:01 → D.MS 22:49
PROVIDERS: Emergency Medicine; Family Medicine; ADMIT Family Medicine; ATTEND Family Medicine
DX: K56.7 Ileus, unspecified (principal); G93.41 Metabolic encephalopathy; T83.518A Infection and inflammatory reaction due to other urinary catheter, initial encounter; I48.20 Chronic atrial fibrillation, unspecified; G82.20 Paraplegia, unspecified; R14.0 Abdominal distension (gaseous); K74.60 Unspecified cirrhosis of liver; Z79.01 Long term (current) use of anticoagulants; I10 Essential (primary) hypertension; J44.9 Chronic obstructive pulmonary disease, unspecified; E03.9 Hypothyroidism, unspecified; K21.9 Gastro-esophageal reflux disease without esophagitis; N20.0 Calculus of kidney; R21 Rash and other nonspecific skin eruption; N31.9 Neuromuscular dysfunction of bladder, unspecified; K59.09 Other constipation; M54.5 Low back pain; G89.29 Other chronic pain

== ENCOUNTER → 2020-04-21 21:13 | Outpatient (CLI) | payer MEDICARE, BC ==
[2019-09-02 12:37] VITALS: BMI 38.0
[~2020-04-21 21:13] MED LIST changes: +ACETAMINOPHEN500 M1 PO; +ADVAIR 250-501 EAC1 INH; +AMITIZA24 MCG PO; +BACLOFEN10 MG PO; +Benadryl INJ IV; +CREON DR 6,0001 EACH PO; +CYTOTEC200 MCG PO; +DIFLUCAN100 MG PO; +DULCOLAX5 MG; +FLAGYL 500500 MG/100 IV; +FLORAJEN3 CAPS460 MG PO; +FOLIC ACID1 MG PO; +GABAPENTIN300 MG PO; +GAS-X180 MG PO; +IPRAT-ALBUT 0.5-3 ML UPD; +LEVO-T150 MCG PO; +LEVOFLOXAC750 MG/150 IV; +LEVOTHYROXINE75 MCG PO; +LINZESS290 MCG PO; +LISINOPRIL10 MG PO; +MERREM 1 GM/NS 11 G1 IV; +MIDODRINE HCL5 MG PO; +NORVASC5 MG PO; +PHENERGAN25 M1 PO; +VIBRAMYCIN 100100 MG PO; +VITAMIN B-1100 M1 PO; +VITAMIN B-12500 MCG PO; +XOPENEX 1.1.25 MG/3 UPD; +ZOFRAN INJ IV; +ZOFRAN8 MG PO
[2020-04-21 21:59] LABS: BASOPHILS 0.3 % (0-2); EOSINOPHILS 1.6 % (0-7); HEMATOCRIT 29.4 % (42.0-54.0); HEMOGLOBIN 9.3 g/dL (13.5-17.5); LYMPHOCYTE ABS# 2.94 10x3/uL (1.32-3.57); LYMPHOCYTES 25.5 % (15-50); MCH 28.4 pg (26.0-34.0); MCHC 31.6 g/dL (31.0-37.0); MCV 89.9 fL (80.0-100.0); MONOCYTES 15.5 % (2-11); NEUTROPHIL ABS# 6.48 10x3/uL (1.78-5.38); NEUTROPHILS 56.1 % (40-80); RBC 3.27 10x6/uL (4.20-6.10); RDW 19.8 % (11.5-14.5); WBC 11.5 10x3/uL (4.8-10.8)
[2020-04-21 22:09] LABS: ALBUMIN 2.7 g/dL (3.4-5.0); ANION GAP 12.3 mmol/L (8-16); BILIRUBIN NEGATIVE (NEGATIVE); BILIRUBIN - TOTAL 0.7 mg/dL (0.2-1.3); CALCIUM 7.8 mg/dL (8.5-10.1); CARBON DIOXIDE 20.6 mmol/L (21.0-32.0); CREATININE - SERUM 1.7 mg/dL (0.6-1.3); KETONE NEGATIVE (NEGATIVE); NITRITE NEGATIVE (NEGATIVE); POTASSIUM - SERUM 3.9 mmol/L (3.5-5.1); PROTEIN - SERUM 6.8 g/dL (6.4-8.2); UROBILINOGEN NORMAL mg/dL (< 2)
[2020-04-21 22:10] LABS: BACTERIA MANY HPF (NONE SEEN); WHITE CELLS - URINE >50 HPF (0-1)
[2020-04-21 22:11] LABS: PLATELET COUNT 394 10x3/uL (130-400)
== END | disposition home or self-care (01) ==
LOC: D.LABREF 21:13
PROVIDERS: ATTEND Family Medicine
DX: R50.9 Fever, unspecified (principal)

== ENCOUNTER → 2020-04-27 16:04 | Outpatient (CLI) | payer MEDICARE, BC ==
[2019-09-02 12:37] VITALS: BMI 38.0
[2020-04-27 16:25] LABS: BASOPHILS 0.1 % (0-2); EOSINOPHILS 0.6 % (0-7); HEMATOCRIT 30.6 % (42.0-54.0); HEMOGLOBIN 9.8 g/dL (13.5-17.5); LYMPHOCYTE ABS# 2.46 10x3/uL (1.32-3.57); LYMPHOCYTES 20.6 % (15-50); MCH 28.5 pg (26.0-34.0); MEAN PLATELET VOLUME 9.6 fL (7.4-10.4); MONOCYTES 9.6 % (2-11); NEUTROPHIL ABS# 8.13 10x3/uL (1.78-5.38); NEUTROPHILS 68.1 % (40-80); PLATELET COUNT 317 10x3/uL (130-400); RBC 3.44 10x6/uL (4.20-6.10); RDW 19.6 % (11.5-14.5); WBC 11.9 10x3/uL (4.8-10.8)
[2020-04-27 16:35] LABS: BILIRUBIN NEGATIVE (NEGATIVE); KETONE NEGATIVE (NEGATIVE); NITRITE NEGATIVE (NEGATIVE); UROBILINOGEN NORMAL mg/dL (< 2)
[2020-04-27 16:37] LABS: ALBUMIN 2.6 g/dL (3.4-5.0); ANION GAP 18.2 mmol/L (8-16); BILIRUBIN - TOTAL 0.49 mg/dL (0.2-1.3); CALCIUM 7.5 mg/dL (8.5-10.1); CREATININE - SERUM 1.9 mg/dL (0.6-1.3); POTASSIUM - SERUM 3.2 mmol/L (3.5-5.1); PROTEIN - SERUM 6.8 g/dL (6.4-8.2)
[2020-04-27 16:40] LABS: WHITE CELLS - URINE >50 HPF (0-1)
[2020-04-27 16:41] LABS: BACTERIA MANY HPF (NONE SEEN)
== END | disposition home or self-care (01) ==
LOC: D.LABREF 16:04
PROVIDERS: ATTEND Family Medicine
DX: N39.0 Urinary tract infection, site not specified (principal)

== ENCOUNTER → 2020-05-02 15:20 | Outpatient (CLI) | payer MEDICARE, BC ==
[2019-09-02 12:37] VITALS: BMI 38.0
[2020-05-02 15:51] LABS: ALBUMIN 2.5 g/dL (3.4-5.0); BILIRUBIN - TOTAL 0.66 mg/dL (0.2-1.3); CALCIUM 7.4 mg/dL (8.5-10.1); CARBON DIOXIDE 19.8 mmol/L (21.0-32.0); CREATININE - SERUM 2.2 mg/dL (0.6-1.3); PROTEIN - SERUM 6.8 g/dL (6.4-8.2)
[2020-05-02 16:03] LABS: POTASSIUM - SERUM 2.8 mmol/L (3.5-5.1)
== END | disposition home or self-care (01) ==
LOC: D.LABREF 15:20
PROVIDERS: ATTEND Family Medicine
DX: I48.11 Longstanding persistent atrial fibrillation (principal); E72.20 Disorder of urea cycle metabolism, unspecified; E87.6 Hypokalemia; G93.41 Metabolic encephalopathy